=== PATIENT | female | born 1975 | race Caucasian/White ===

== ENCOUNTER 2017-02-15 11:12 | Inpatient (IN) ==
[2017-02-15] MEDS ORDERED: CLINDAMYCIN 600 MG/4 ML VIAL IM STA (12:24)
[2017-02-15] MEDS ORDERED: CLINDAMYCIN 600 MG/4 ML VIAL ONE (12:25)
--- NOTE | 2017-02-15 12:41 | Emergency Department Note ---
Arrival - Arrival Chief Complaint: Back Stated Complaint: left back and hip pain,swollen arms ED Nursing Triage Note: Pt c/o mid back pain, right hip pain, and red/painful areas to her skin just above her AC on her natasha upper arm. Pt has been to [facility] ER x 3 for the pain but is not better. Mode of Arrival: Wheelchair Limitations: No Limitations Source: Patient, Family Time Seen by Provider: 02/15/17 12:00 - History of Present Illness HPI Narrative: This is a 41-year-old white female who is complaining of mid back and right hip pain for approximately 5 weeks. She also is complaining of painful red areas to the distal upper arms for approximately 1 week. This patient reports a history of drug abuse and states that she has been seen at [facility] for this problem. She also states that she has been to [facility] emergency department for 3 visits but the pain is not better. She states that she had a CT of the spine there last . She denies any fevers, hematuria , or dysuria. Onset (ago): week(s) (5) Consistency: intermittent Severity: moderate Quality: stabbing Allergies/Adverse Reactions: Allergies Allergy/AdvReac Type Severity Reaction Status Date / Time morphine Allergy Intermediate RASH Verified 06/05/16 22:55 ketorolac [From Toradol] Allergy RASH Verified 06/05/16 22:55 levofloxacin [From Levaquin] Allergy HIVES Verified 06/05/16 22:55 meperidine [From Demerol] AdvReac Intermediate Nausea Verified 06/05/16 22:55 Penicillins AdvReac Intermediate Fever Verified 06/05/16 22:55 Home Medications: Home Medications Medication Instructions Recorded Confirmed Type Fluoxetine [PROzac] 10 mg PO DAILY 02/08/15 05/11/16 History Gabapentin [Gabapentin] 600 mg PO BID 02/08/15 05/11/16 History Hydrocodone/Acetaminophen 1 each PO BID 02/08/15 05/11/16 History [Hydrocodon-Acetaminophn 10-325] Levothyroxine Tab [Synthroid Tab] 88 mcg PO DAILY 02/08/15 05/11/16 History Omeprazole [Omeprazole] 20 mg PO DAILY 02/08/15 05/11/16 History Promethazine Tab [Phenergan Tab] 25 mg PO Q6H 02/08/15 05/11/16 History Warfarin Sodium 5 mg PO DAILY 02/08/15 05/11/16 History clonazePAM [Clonazepam] 1 mg PO PRN PRN 02/08/15 05/11/16 History Furosemide Tab [Lasix Tab] 10 mg PO DAILY PRN 01/22/16 05/11/16 History Potassium Chloride 20 meq PO DAILY 01/22/16 05/11/16 History Insulin Lispro [HumaLOG] 1 unit SUBCUT BID 05/11/16 05/11/16 History metFORMIN [Glucophage] 500 mg PO BID W/MEALS 05/11/16 05/11/16 History traMADol TAB [Ultram] 50 mg PO Q6H #16 tablet 06/06/16 Rx Review of System - Review of System 12 point system: reviewed and no additional remarkable complaints except as stated - Review of System Constitutional: Present: as per HPI. Absent: fever Musculoskeletal: Present: as per HPI, lower back pain (Left flank pain) Skin: Present: as per HPI, other Medical,Surgical,& Family Hx - Medical History Psychological: History of: Anxiety Disorders, Depression Endocrine: History of: Diabetes Mellitus (NIDDM) Rheumatology: History of;: Fibromyalgia Respiratory: History of: Pulmonary Embolism Gastrointestinal: History of: Gastrointestinal Bleed, GI Problems ("gallbladder problems") Musculoskeletal: History of: Degenerative Disk Disease, Musculoskeletal Problems (fibromyalgia) Other: History of: Miscellaneous Medical Problems (fibromyalgia) - Surgical History Abdominal Surgeries: Surgical HX of: Appendectomy, Cholecystectomy Reproductive Surgeries: Surgical HX of;: Section, Gynecologic Surgery ( benign ovarian tumor resection) - Social History Smoking Status: Current every day smoker Exam Physical Examination: - General General appearance: [alert, in mild to moderate distress] - Head Head exam: [Present: atraumatic, normocephalic, normal inspection] - Eye Eye exam: [Present: normal appearance, PERRL, EOMI] - ENT ENT exam: [Present: normal exam, normal oropharynx, mucous membranes moist, TM' s normal bilaterally, normal external ear exam] - Neck Neck exam: [Present: normal inspection, full ROM, trachea midline] - Chest Chest inspection: [Present: normal inspection, symmetric chest wall rise] - Respiratory Respiratory exam: [Present: normal lung sounds bilaterally] - Cardiovascular Cardiovascular exam: [Present: regular rate, normal rhythm, normal heart sounds] - Abdominal Exam Abdominal exam: [Present: soft, normal bowel sounds] - Extremities Exam Extremities exam: [Present: normal inspection, full ROM] - Back Exam Back exam: [Present: normal inspection, full ROM. Exception: There is pain to even light touch of the lower back the left flank.] - Neurological Exam Neurological exam: [Present: alert, oriented X3] - Psychiatric Psychiatric exam: [Present: normal affect, normal mood] - Skin Skin exam: [Present: warm, dry, intact, normal color. Exception: There is a 5 x 5 cm round area of cellulitis noted to the distal aspect of both upper arms just above the AC fossa] Vital Signs: Vital Signs Temperature 96.1 F L 02/15/17 11:36 Pulse Rate 114 H 02/15/17 13:25 Respiratory Rate 18 02/15/17 13:25 Blood Pressure 92/67 02/15/17 13:25 O2 Sat by Pulse Oximetry 96 02/15/17 11:26 Results - Labs CBC & BMP: 02/15/17 12:10 02/15/17 12:10 Disposition Clinical Impression: Hyperglycemia, Cellulitis of arm, left, Cellulitis of arm, right Case discussed with: patient Disposition: Still a Patient Condition: Stable Time of Disposition: 15:29
[2017-02-15 12:44] LABS: Basophils % 0.4 % (0.0-0.8); Eosinophils # 0.1 10*3/uL (0.0-0.87); Eosinophils % 0.7 % (0.00-10.9); Hematocrit 39.8 VOL% (35.7-47.0); Hemoglobin 13.8 GM/DL (12.0-16.0); Immature Granulocytes % 0.6 %; Immature Granulocytes Absolute 0.06 #; Lymphocytes # 1.3 10*3/uL (1.4-4.0); Lymphocytes % 13.2 % (21.3-54.2); Mean Corpuscular HGB Conc 34.7 GM/DL (32-36); Mean Corpuscular Hemoglobin 28 PG (27-34); Mean Corpuscular Volume 80.9 FL (87-102); Mean Platelet Volume 10.2 FL (9.6-12.0); Monocytes # 0.8 10*3/uL (0.11-0.8); Monocytes % 8.3 % (1.7-12.7); Neutrophils # 7.7 10*3/uL (1.4-7.4); Neutrophils % 76.8 % (38.7-73.9); Platelet Count 296 T/CUMM (130-400); Red Blood Count 4.92 MC/CUMM (3.8-5.5); Red Cell Distribution Width 13.2 % (9.3-17.3); White Blood Count 10.1 T/CUMM (4-12)
[2017-02-15 12:48] LABS: Apearance,Urine CLEAR (Clear); Bacteria,Urine Occasional /HPF (Few); Bilirubin,Urine Negative (Negative); Blood, Urine Small mg/dL (Negative); Glucose,Urine (UA) >=500 mg/dL (Negative); Ketones,Urine 20 mg/dL (Negative); Nitrite,Urine Negative (Negative); Protein,Urine Negative; RBC,Urine <1 /HPF (0-4); Squamous Epithelial Cell,Urine Occasional /HPF (0-10); Urine Color Straw (Yellow); Urine Specific Gravity 1.031 (1.001-1.035); Urine Urobilinogen < 2.0 EU/DL (0.2-1.0); WBC,Urine 5 /HPF (0-6)
[2017-02-15 13:19] LABS: Calcium 8.6 MG/DL (8.5-10.1)
[2017-02-15 13:20] LABS: Osmolality,Calculated 286.7 MOS/KG (273-304); Potassium 3.6 MMOL/L (3.5-5.1)
[2017-02-15] MEDS ORDERED: SODIUM CHLORIDE 0.9% 1,000 ML IV STA ×2 (13:34→13:35)
[2017-02-15 14:00] LABS: Band Neutrophils 3 % (0-10); Eosinophils 1 % (0-10); Hypochromasia 1+; Lymphocytes 14 % (20-55); Platelet Estimate Adequate; Segmented Neutrophils 77 % (50-85); Total Cells Counted 100
--- NOTE | 2017-02-15 14:05 | CT Report ---
CT abdomen pelvis wo con Indication: Left flank pain Comparison: CT abdomen pelvis dated November 29, 2015 Technique: Multiple axial tomographic images of the abdomen and pelvis were obtained without the use of intravenous contrast. Findings: Mild dependent change of the lungs present. Diffuse hypoattenuation of the liver consistent with steatosis. 2.1 cm hypoattenuating lesion within the posterior medial right lobe of the liver. This was present and unchanged when compared back to CT PE study dated February 08, 2015. Stability suggests benignity. The liver appears somewhat prominent. Status post cholecystectomy. Spleen is upper limits of normal in size. The bilateral adrenal glands are grossly unremarkable. The bilateral kidneys are grossly unremarkable. The urinary bladder is incompletely distended. Uterus grossly unremarkable. No worrisome adnexal mass. There is no evidence of gastrointestinal obstruction or acute appendicitis. Visualized vasculature grossly unremarkable. Fat-containing umbilical hernia. Supraumbilical ventral abdominal hernia again noted which is at midline and fat-containing. There is patchy opacification within the bilateral anterior abdominal wall subcutaneous soft tissues, greatest within the left lower quadrant. This is most likely injection related. Osseous structures appear grossly unchanged. IMPRESSION: No convincing CT evidence of acute intra-abdominal abnormality or urinary calculus. Chronic findings as detailed above. The CT exam was performed using one or more of the following dose reduction techniques: Automated exposure control, adjustment of the mA and/or kV according to patient size, or use of iterative reconstruction technique. PROCEDURE INTERPRETED AT [facility] DEPARTMENT OF RADIOLOGY Final Report Signed by: Dr Gumaro Arrington
[2017-02-15] MEDS ORDERED: INSULIN REGULAR 100 UNIT/ML SUBCUT STA (15:12)
[2017-02-15] MEDS ORDERED: GLUCAGON 1 MG VIAL IM PRN ×2 (15:15→16:17)
[2017-02-15] MEDS ORDERED: ACETAMINOPHEN 325 MG TABLET PO PRN (15:15)
[2017-02-15] MEDS ORDERED: DEXTROSE 50% 25 GM/50 ML VIAL IV PRN ×2 (15:15→16:17)
[2017-02-15] MEDS ORDERED: INSULIN REGULAR 100 UNIT/ML ONE (15:23)
--- NOTE | 2017-02-15 15:43 | Hospitalist History & Physical ---
<Bhavna Johnsonda - Last Filed: 02/15/17 16:23> Assessment and Plan (1) Cellulitis of arm, left Status: Acute Assessment and plan: The areas are noted bilaterally affecting the antecubital aspect of her arm. This finding is quite troubling. The patient reported a history of pulmonary embolism in 2004 and 2007 and multiple deep vein thrombosis. She was placed on Coumadin; however she reports that she has not taken it in months. We will check venous dopplers upper and lower for good measures. Current Visit: Yes (2) Cellulitis of arm, right Status: Acute Assessment and plan: The areas are noted bilaterally affecting the antecubital aspect of her arms. This finding is quite troubling. The patient reported a history of pulmonary embolism in 2004 and 2007 and multiple deep vein thrombosis. She was placed on Coumadin; however she reports that she has not taken it in months. We will check venous dopplers upper and lower for good measures. Current Visit: Yes (3) Hyperglycemia Status: Acute Assessment and plan: Grossly hyperglycemic at the time of presentation; glucose noted 593. Will obtain HGA1C and start accuchecks with SS coverage. Current Visit: Yes History of Present Illness Chief complaint: bilateral arm pain and lower back pain History of present illness: This is a very unfortunate 41 year old female that presented to the [facility] at [facility] for the evaluation of swelling of bilateral upper arms and lower back. The patient has a very complex medical history significant for morbid obesity, Home Medications Medication Instructions Recorded Confirmed Type Gabapentin [Gabapentin] 600 mg PO BID 02/08/15 02/15/17 History Levothyroxine Tab [Synthroid Tab] 88 mcg PO DAILY 02/08/15 02/15/17 History Furosemide Tab [Lasix Tab] 10 mg PO DAILY PRN 01/22/16 02/15/17 History metFORMIN [Glucophage] 500 mg PO BID W/MEALS 05/11/16 02/15/17 History Insulin Detemir [Levemir FlexPen] 35 unit SUBCUT DAILY 02/15/17 02/15/17 History Warfarin [Coumadin] 2 mg PO DAILY@1800 02/15/17 02/15/17 History Allergies Allergy/AdvReac Type Severity Reaction Status Date / Time morphine Allergy Intermediate RASH Verified 06/05/16 22:55 ketorolac [From Toradol] Allergy RASH Verified 06/05/16 22:55 levofloxacin [From Levaquin] Allergy HIVES Verified 06/05/16 22:55 meperidine [From Demerol] AdvReac Intermediate Nausea Verified 06/05/16 22:55 Penicillins AdvReac Intermediate Fever Verified 06/05/16 22:55 Medical,Surgical,& Family Hx - Medical History Psychological: History of: Anxiety Disorders, Depression Endocrine: History of: Diabetes Mellitus (NIDDM) Rheumatology: History of;: Fibromyalgia Respiratory: History of: Pulmonary Embolism Gastrointestinal: History of: Gastrointestinal Bleed, GI Problems ("gallbladder problems") Musculoskeletal: History of: Degenerative Disk Disease, Musculoskeletal Problems (fibromyalgia) Other: History of: Miscellaneous Medical Problems (fibromyalgia) - Surgical History Abdominal Surgeries: Surgical HX of: Appendectomy, Cholecystectomy Reproductive Surgeries: Surgical HX of;: Section, Gynecologic Surgery ( benign ovarian tumor resection) - Social History Smoking Status: Current every day smoker Exam - Constitutional Vitals: Period Temp Pulse Resp BP Sys/Bettencourt Pulse Ox Last 24 Hr 96.1 F-96.1 F 105-114 18-22 92-121/67-102 96 General appearance: mild distress, morbidly obese - Head Head exam: Present: normal inspection, normocephalic, atraumatic - Eye Eye exam: Present: EOMI, conjunctival injection. Absent: nystagmus Pupils: Present: RONNA, normal accommodation - ENT ENT exam: Present: normal exam, normal external ear exam, normal oropharynx, other (edentulous) - Neck Neck exam: Present: normal inspection. Absent: lymphadenopathy, meningismus, thyromegaly - Respiratory Respiratory exam: Present: clear to auscultation bilaterally. Absent: rales, rhonchi, stridor, wheezes - Cardiovascular Cardiovascular exam: Present: regular rate and rhythm. Absent: carotid bruit, diastolic murmur, gallop, JVD, rubs, systolic murmur - GI/Abdominal GI/Abdominal exam: Present: normal bowel sounds, soft - Extremities Exam Extremities exam: Present: other (edema to bilateral upper arms) - Back Exam Back exam: Present: normal inspection, muscle spasm - Neurological Exam Neurological exam: Present: alert, oriented X3, CN II-XII intact - Psychiatric Psychiatric exam: Present: anxious - Skin Skin exam: Present: normal color, warm, dry Results - Labs CBC & BMP: 05/30/17 12:10 02/15/17 12:10 Lab Results: I have reviewed the past 24 hour labs Quality Measures - VTE Contraindication to Pharmacological VTE Prophylaxis: Already on Theraputic Agent , No Prophylaxis Needed <RalfEberkatelyn - Last Filed: 02/15/17 17:09> History of Present Illness History of present illness: Patient seen and examined independently of NICOLAS Johnson, agree with history, assessment and plan as documented. 41 y/o WF with HTN, DM and hx of chronic pain presents with low back pain and bilateral arm redness and pain. She reports that her back pain started approximately 5 weeks ago. She does report a history of chronic back pain, with some type of cyst removed years ago. Her arm pain started Tuesday, associated with redness and warmth. She denies fever and chills. She denies a history of IV drug abuse, but does admit a history of prescription drug abuse. 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 Bilateral forearm with raised areas, warm and red. Strange for this to be bilateral. She is afebrile with no leukocytosis. But the appearance is suspicious for infection. Will obtain bilateral dopplers. Will treat as an abscess for now with vancomycin. She might require a surgery consult. She was in the ED , but denies an IV attempts in these areas. Low back pain appears to be in the middle. Physical exam is difficult given patient's body habitus and pain level. Will obtain xrays. If negative might consider further imaging. Will obtain blood cultures, esr and crp. Uncontrolled diabetes mellitus, received regular insulin in the ED, will restart home insulin. Exam - Constitutional Vitals: Period Temp Pulse Resp BP Sys/Bettencourt Pulse Ox Last 24 Hr 96.1 F-99.4 F 105-114 18-22 92-121/60-102 96-99 Results - Labs CBC & BMP: 02/15/17 12:10 02/15/17 12:10
[2017-02-15 15:59] LABS: Barbiturates Screen,Urine Negative (Negative); Benzodiazepines Screen,Urine Negative (Negative); Cannabinoid Screen,Urine Negative (Negative); Opiate Screen,Urine Positive (Negative); Phencyclidine Screen,Urine Negative (Negative)
--- NOTE | 2017-02-15 16:33 | Ultrasound Report ---
US venous doppler UE BI Indication: Cellulitis. Bilateral upper extremity DVT ultrasound: Grayscale, graded compression, color Doppler and pulse Doppler interrogation of both upper extremities performed. Normal features are present within the internal jugular, subclavian, axillary, brachial and basilic veins of both upper extremities. In both antecubital fossa's, there are fluid collections present that are somewhat insinuating between tissue planes, likely hematomas. In the right antecubital fossa, the collection measures roughly 47 x 21 x 44 mm, and in the left AC fossa, roughly 41 x 24 mm. Color Doppler flow shows no active extravasation into either of these collections and there is no hyperemic change to the periphery of either to suggest inflammatory process. Impression: Bilateral antecubital fossa collections, presumably hematomas. Less likely but on the differential include abscesses. Has the patient had recent blood draws requiring bilateral AC fossa sticks? PROCEDURE INTERPRETED AT [facility] DEPARTMENT OF RADIOLOGY Final Report Signed by: Renato Eubanks M.D.
[2017-02-15] MEDS ORDERED: VANCOMYCIN INJ 1,000 MG in SODIUM CHLORIDE 0.9% 250 ML IV SCH (17:00)
[2017-02-15] MEDS: INSULIN REGULAR 100 UNIT/ML SUBCUT SCH ×2 (17:00→20:44)
--- NOTE | 2017-02-15 17:37 | XRay Report ---
XR lumbar spine AP/LAT Indication: Low back pain. Lumbar spine 3 views: Mild L1-2 and L2-3 disc space narrowing with endplate osteophytes noted. Mild L5-S1 disc space narrowing as well. The disc heights are maintained. No compression fractures. No spondylolisthesis. Impression: Mild degenerative disc disease L1-2, L2-3 and L5-S1. PROCEDURE INTERPRETED AT [facility] DEPARTMENT OF RADIOLOGY Final Report Signed by: Renato Eubanks M.D.
--- NOTE | 2017-02-15 17:38 | XRay Report ---
XR thoracic spine 2V ap/lat Indication: Back pain. Thoracic spine 2 views: There is a mild less than 8 degrees scoliotic curvature of the upper thoracic spine, apex at T5. No compression fractures. No spondylolisthesis. Endplate spondylitic changes of the mid and lower thoracic spine are present with small endplate osteophytes. Disc heights are maintained. Obesity noted. Impression: Mild endplate spondylitic changes mid and lower thoracic spine. PROCEDURE INTERPRETED AT [facility] DEPARTMENT OF RADIOLOGY Final Report Signed by: Renato Eubanks M.D.
[2017-02-15] MEDS: SODIUM CHLORIDE 0.9% 1,000 ML IV SCH (18:08)
[2017-02-15 18:23] LABS: INR 1.2; PT Patient Result 12.4 SECS
[2017-02-15 19:30] LABS: Hepatitis A Ab IgM Quant < 0.02 Index; Hepatitis A Ab IgM Result Negative (Negative); Hepatitis B Core IgM Quant 0.19 Index; Hepatitis B Core IgM Result Negative (Negative); Hepatitis B Surface Ag Quant 0.28 Index; Hepatitis B Surface Ag Result Negative (Negative); Hepatitis C Virus Ab Quant 0.28 Index; Hepatitis C Virus Ab Result Negative (Negative)
[2017-02-15] MEDS: VANCOMYCIN INJ 2,000 MG in SODIUM CHLORIDE 0.9% 500 ML IV SCH (19:52)
[2017-02-15] MEDS: ZALEPLON 5 MG CAPSULE PO PRN (20:27)
[2017-02-15] MEDS ORDERED: CLINDAMYCIN INJ 900 MG in PREMIX 1 EACH IV SCH (21:00)
[2017-02-16] MEDS: ONDANSETRON 4 MG/2 ML VIAL IV PRN ×3 (01:41→20:28)
[2017-02-16] MEDS: SODIUM CHLORIDE 0.9% 1,000 ML IV SCH ×3 (02:08→19:38)
[2017-02-16 04:25] LABS: Basophils % 0.4 % (0.0-0.8); Eosinophils # 0.1 10*3/uL (0.0-0.87); Eosinophils % 0.5 % (0.00-10.9); Hemoglobin 12.6 GM/DL (12.0-16.0); Immature Granulocytes % 0.9 %; Lymphocytes # 1.8 10*3/uL (1.4-4.0); Lymphocytes % 16.1 % (21.3-54.2); Mean Corpuscular HGB Conc 34.1 GM/DL (32-36); Mean Corpuscular Hemoglobin 28 PG (27-34); Mean Corpuscular Volume 81.7 FL (87-102); Monocytes % 8.6 % (1.7-12.7); Neutrophils # 8.2 10*3/uL (1.4-7.4); Neutrophils % 73.5 % (38.7-73.9); Platelet Count 311 T/CUMM (130-400); Red Blood Count 4.53 MC/CUMM (3.8-5.5); White Blood Count 11.1 T/CUMM (4-12)
[2017-02-16 04:55] LABS: Band Neutrophils 2 % (0-10); Burr Cells Slight; Eosinophils 1 % (0-10); Lymphocytes 17 % (20-55); Platelet Estimate Adequate; Segmented Neutrophils 72 % (50-85); Total Cells Counted 100
[2017-02-16 04:59] LABS: Albumin 2.2 G/DL (3.4-5.0); Bilirubin,Total 0.7 MG/DL (0.2-1.0); Calcium 8.1 MG/DL (8.5-10.1); Magnesium 1.6 MG/DL (1.8-2.4); Osmolality,Calculated 277.1 MOS/KG (273-304); Phosphorous 2.9 MG/DL (2.5-4.9); Potassium 3.4 MMOL/L (3.5-5.1); Total Protein 5.9 G/DL (6.4-8.3)
[2017-02-16 05:36] LABS: Cholesterol 110 MG/DL (50-200); HDL Cholesterol < 10 MG/DL (40-60); Triglycerides 265 MG/DL (2-150)
[2017-02-16] MEDS: INSULIN GLARGINE 100 UNIT/ML SUBCUT SCH (08:04)
[2017-02-16] MEDS: INSULIN REGULAR 100 UNIT/ML SUBCUT SCH ×4 (08:05→20:26)
[2017-02-16] MEDS: PANTOPRAZOLE 40 MG TABLET PO SCH (08:05)
[2017-02-16] MEDS: VANCOMYCIN INJ 2,000 MG in SODIUM CHLORIDE 0.9% 500 ML IV SCH ×2 (08:06→19:38)
--- NOTE | 2017-02-16 10:42 | Hospitalist Progress Note ---
Assessment and Plan (1) Abscess of forearm, left Status: Acute Assessment and plan: Impression: 1. Left forearm abscess with bacteremia 2. Right forearm abscess 3. Morbid obesity 4. Chronic pain Plan: Surgery evaluation. I have revised her opioids. IV antibiotics have been instituted. This note was completed using [employer] voice recognition software. There may be social work nurse errors as a result. Current Visit: Yes Hospitalist: Subjective Interval history: Follow-up arm pain. The patient has had blood cultures growing gram-positive cocci. She has bilateral antecubital fossa abscesses. She denies any recent injections in the area. She is most interested in pain management. She says that her arms are sore, and that she has chronic pain in her back and legs. She had been receiving [place] [facility] in the past, but it is not clear where she has been getting this , since she has been fired from pain management. Exam - Constitutional Vitals: Period Temp Pulse Resp BP Sys/Bettencourt Pulse Ox Last 24 Hr 96.1 F-99.4 F 95-114 18-22 92-127/60-102 92-99 Heart is regular with no murmur or gallop. Lungs are clear with no rales or wheezes. Abdomen is tremendous; palpation is impossible. The left antecubital fossa lesion is draining grossly purulent material. She is awake and alert Results - Labs CBC & BMP: 02/16/17 03:39 02/16/17 03:39 Quality Measures - VTE Contraindication to Pharmacological VTE Prophylaxis: Already on Theraputic Agent , No Prophylaxis Needed
[2017-02-16] MEDS: oxyCODONE/ACETAMINOPHEN 5-325 MG TABLET PO PRN (11:55)
--- NOTE | 2017-02-16 11:57 | General Surgery Consult Note ---
Assessment and Plan (1) Abscess of forearm, left Status: Acute Assessment and plan: Patient with abscess of the left upper extremity. As also concerning is it is associated with positive blood cultures and possible IV 6 for septicemia. Cultures are growing methicillin sensitive staph aureus and patient is on appropriate antibiotics. Continue with IV antibiotics. Unfortunately patient has just eaten. Recommend elevation and warm compresses at this time. Dr. Torres to follow for assessment and recommendation of exact timing of I&D. Current Visit: Yes (2) Abscess of right arm Status: Acute Assessment and plan: Same as above Current Visit: Yes History of Present Illness Chief complaint: Bilateral Arm Pain History of present illness: Ms. Hurley is a 41 year old female with past medical history of insulin- dependent diabetes mellitus, chronic pain, hypothyroidism, anxiety depression as well as a DVT and PE with medication noncompliance currently admitted with complaints of hip pain, back pain and bilateral upper extremity pain. Patient reports she was seen in the emergency department [facility] last Tuesday at which time an IV was placed into her left upper extremity. Following that discharge, she noted having increased pain in this area. This is progressively worsened with associated edema and erythema. She denies fever, chills, myalgias , or riders; arthralgias as above. There is a documented history that she reported history of drug abuse in the medical record, but at the bedside, she denies any recent IV drug abuse. Patient initially started on clindamycin and now on vancomycin. She has had upper trapezius and bilateral upper extremities which demonstrated fluid collections the antecubital fossae. No history of MRSA infection. Home Medications Medication Instructions Recorded Confirmed Type Gabapentin [Gabapentin] 600 mg PO BID 02/08/15 02/15/17 History Levothyroxine Tab [Synthroid Tab] 88 mcg PO DAILY 02/08/15 02/15/17 History Furosemide Tab [Lasix Tab] 10 mg PO DAILY PRN 01/22/16 02/15/17 History metFORMIN [Glucophage] 500 mg PO BID W/MEALS 05/11/16 02/15/17 History Insulin Detemir [Levemir FlexPen] 35 unit SUBCUT DAILY 02/15/17 02/15/17 History Warfarin [Coumadin] 2 mg PO DAILY@1800 02/15/17 02/15/17 History Allergies Allergy/AdvReac Type Severity Reaction Status Date / Time morphine Allergy Intermediate RASH Verified 06/05/16 22:55 ketorolac [From Toradol] Allergy RASH Verified 06/05/16 22:55 levofloxacin [From Levaquin] Allergy HIVES Verified 06/05/16 22:55 meperidine [From Demerol] AdvReac Intermediate Nausea Verified 06/05/16 22:55 Penicillins AdvReac Intermediate Fever Verified 06/05/16 22:55 Medical,Surgical,& Family Hx - Medical History Psychological: History of: Anxiety Disorders, Depression Endocrine: History of: Diabetes Mellitus (IDDM), Diabetes Mellitus (NIDDM) Rheumatology: History of;: Fibromyalgia Respiratory: History of: Pulmonary Embolism Gastrointestinal: History of: Gastrointestinal Bleed, GI Problems ("gallbladder problems") Musculoskeletal: History of: Degenerative Disk Disease, Musculoskeletal Problems (fibromyalgia) Reproductive: History of: Reproductive Problems (tubectomy) Other: History of: Miscellaneous Medical Problems (fibromyalgia) - Surgical History Abdominal Surgeries: Surgical HX of: Appendectomy, Cholecystectomy Reproductive Surgeries: Surgical HX of;: Section, Gynecologic Surgery ( benign ovarian tumor resection) - Social History Smoking Status: Current every day smoker Frequency of Alcohol Use: None Type of Drug Use: None (History of drug abuse) Lives With:: Parent - Constitutional Constitutional: Present: as per HPI - Cardiovascular Cardiovascular: Absent: chest pain at rest, orthopnea, palpitations - Respiratory Respiratory: Absent: cough, wheezing - Gastrointestinal Gastrointestinal: Absent: abdominal pain, diarrhea, nausea, vomiting - Genitourinary Genitourinary: Absent: dysuria, flank pain - Musculoskeletal Musculoskeletal: Present: as per HPI Hematologic/Lymphatic: Absent: easy bleeding, easy bruising Exam - Constitutional Vitals: Period Temp Pulse Resp BP Sys/Bettencourt Pulse Ox Last 24 Hr 97.8 F-99.4 F 95-114 18-20 92-127/60-75 92-99 General appearance: morbidly obese - Eye Eye exam: Absent: conjunctival injection, scleral icterus - Neck Neck exam: Present: trachea midline - Respiratory Respiratory exam: Present: clear to auscultation bilaterally - Cardiovascular Cardiovascular exam: Present: RRR - GI/Abdominal GI/Abdominal exam: Present: normal bowel sounds, soft. Absent: tenderness - Extremities Exam Extremities exam: Absent: calf tenderness (Left upper extremity AC with edematous erythematous area with palpable induration approximately 5 cm in diameter with purulent drainage; this is tender to palpation. Right upper extremity: With a similar findings measuring approximately 6 cm in diameter without opened, draining wound. Distally, radial and ulnar pulses are palpable. Sensation is intact in the digits with full motor function bilaterally in the hands.), edema - Neurological Exam Neurological exam: Present: alert, oriented X3 Speech: Present: normal - Skin Skin exam: Present: normal color, warm Quality Measures - VTE Contraindication to Pharmacological VTE Prophylaxis: Already on Theraputic Agent , No Prophylaxis Needed Results - Labs CBC & BMP: 02/16/17 03:39 02/16/17 03:39 Labs: Blood cultures: 2/2 MSSA CRP 29.4 sed rate 66 INR 1.2 Urinalysis unremarkable No leukocytosis - Diagnostic Findings Procedure: Ultrasound: report reviewed by me
--- NOTE | 2017-02-16 15:00 | Ultrasound Report ---
History: Palpable thrill associated with region of clinical soft tissue abscess in both upper extremities abscess Date: 02/16/2017 Study: Bilateral upper extremity arterial duplex ultrasound Comparison exam: Venous ultrasound 02/15/2017 Real-time ultrasound images are captured and archived, to include grayscale, color Doppler, and pulse wave Doppler images. The brachial and proximal radial and ulnar arteries in the regions of interest are patent bilaterally. There is no evidence of occlusion or pseudoaneurysm or localized hematoma directly adjacent to the arteries scanned. Impression: No arterial abnormality in the region of interest PROCEDURE INTERPRETED AT [facility] DEPARTMENT OF RADIOLOGY Final Report Signed by: Dr. Keya Dowd
[2017-02-16] MEDS: HYDROmorphone 2 MG/1 ML VIAL IV PRN ×2 (15:24→20:27)
[2017-02-17] MEDS: HYDROmorphone 2 MG/1 ML VIAL IV PRN ×8 (00:44→20:35)
[2017-02-17] MEDS: ONDANSETRON 4 MG/2 ML VIAL IV PRN ×3 (00:45→16:02)
[2017-02-17] MEDS: SODIUM CHLORIDE 0.9% 1,000 ML IV SCH ×3 (04:53→23:55)
--- NOTE | 2017-02-17 07:08 | EKG Report ---
Stationary ECG Study [facility] Test Date: 02/17/2017 6:07:08 AM Pat Name: ZONIA BENITEZ Department: Room: 244 Gender: F Com Writer: REUBEN : 1975 Requested by: Geoff Lion Order Number: [id number] Reading MD: RANDOLPH KISER Intervals [place] Rate: 88 P: 68 IA: 214 QRS: 81 QRSD: 105 T: 18 QT: 381 QTc: 426 Interpretive Statements SINUS RHYTHM WITH PROLONGED IA INTERVAL NONSPECIFIC T-WAVE ABNORMALITY Electronically Signed On 02-18-17 08:48:30 CDT by RANDOLPH KISER [email or web address]
[2017-02-17] MEDS: INSULIN REGULAR 100 UNIT/ML SUBCUT SCH ×4 (08:09→20:46)
[2017-02-17] MEDS: PANTOPRAZOLE 40 MG TABLET PO SCH (08:10)
[2017-02-17] MEDS: INSULIN GLARGINE 100 UNIT/ML SUBCUT SCH (08:10)
[2017-02-17] MEDS: VANCOMYCIN INJ 2,000 MG in SODIUM CHLORIDE 0.9% 500 ML IV SCH ×2 (09:21→17:43)
--- NOTE | 2017-02-17 09:57 | Hospitalist Progress Note ---
Assessment and Plan (1) Abscess of forearm, left Status: Acute Assessment and plan: Impression: 1. Left forearm abscess with bacteremia 2. Right forearm abscess 3. Morbid obesity 4. Chronic pain Plan: Surgery today. Continue IV antibiotics. This note was completed using [employer] voice recognition software. There may be manager environmental health errors as a result. Current Visit: Yes Hospitalist: Subjective Interval history: Follow-up bilateral antecubital fossa abscess. The patient feels a little better today. Pain appears to be better controlled, as evidenced by lack of hollering in the room. Parents are in the room with the patient. The patient is scheduled for abscess drainage today. She reports a prior subcutaneous abscess on the anterior abdominal wall that healed without incident. Exam - Constitutional Vitals: Period Temp Pulse Resp BP Sys/Bettencourt Pulse Ox Last 24 Hr 97.6 F-99.1 F 81-106 18-21 104-120/55-73 90-97 Vital signs are noted above. Right antecubital fossa is erythematous and indurated. Left continues to drain , and bandages intact. She is awake and alert. Her gaze is disconjugate. This is a chronic finding. Results - Labs CBC & BMP: 02/16/17 03:39 02/16/17 03:39 Lab Results: I have reviewed the past 24 hour labs (Blood cultures are growing gram-positive cocci) Quality Measures - VTE Contraindication to Pharmacological VTE Prophylaxis: Already on Theraputic Agent , No Prophylaxis Needed
--- NOTE | 2017-02-17 15:35 | Operative Note ---
Date of procedure: 02/17/17 Pre-op diagnosis: Bilateral antecubital fossa abscesses Post-op diagnosis: same Procedure: Procedure performed: Incision and drainage of bilateral antecubital fossa abscesses Procedure in detail: Patient was taken to the operating suite and laid supine. After general anesthesia induced bilateral upper extremities were prepped and draped in usual sterile fashion. After procedural pause incision was made over the fluctuant area in the right arm. There were 2 areas with fluctuance one just above the elbow crease and one below. Incision was made in both of these with return of purulence. Cultures obtained and sent. I freed the loculations and the cavity. Thoroughly irrigated both incisions. All the purulence was drained. Pressure was applied. Next I opened up the draining area just above the left antecubital fossa and the cavity was thoroughly irrigated and suctioned. All the loculations were freed. There is good hemostasis. 2 inch Kerlix was placed in the cavity. On the right a 2 inch Kerlix was placed in both of these cavities. There was no necrotic tissue identified. Sterile dressings applied and the patient was taken recovery room in stable condition. All lap and needle counts correct at the end of the case. Anesthesia: GETA Surgeon / Physician: Shmuel Torres Estimated blood loss: other (Approximately 25 cc) Specimens: other (Cultures obtained) Condition: stable Disposition: PACU Results - Labs CBC & BMP: 02/16/17 03:39 02/16/17 03:39 Discharge Plan - Discharge Medications No Action Gabapentin [Gabapentin] 600 mg PO BID Levothyroxine Tab [Synthroid Tab] 88 mcg PO DAILY Furosemide Tab [Lasix Tab] 10 mg PO DAILY PRN PRN Reason: fluid retention metFORMIN [Glucophage] 500 mg PO BID W/MEALS Warfarin [Coumadin] 2 mg PO DAILY@1800 Insulin Detemir [Levemir FlexPen] 35 unit SUBCUT DAILY - Follow Up or Referral - Forms/Instructions
--- NOTE | 2017-02-17 15:44 | Anesthesia Post-Op ---
Anesthesia Post OP - Post Ansesthetic Evaluation Patient seen in post op: Yes Resp: within normal limits CV: within normal limits Mental: within normal limits Temp: within normal limits Gvac-Dw-[id number]: within normal limits Nausea and Vomiting: within normal limits Pain: within normal limits
[2017-02-17] MEDS ORDERED: MIDAZOLAM 2 MG/2 ML VIAL ONE (15:46)
[2017-02-17] MEDS ORDERED: fentaNYL 100 MCG/2 ML VIAL ONE (15:46)
[2017-02-17] MEDS ORDERED: HYDROmorphone 2 MG/1 ML VIAL ONE (15:49)
[2017-02-17] MEDS ORDERED: ONDANSETRON 4 MG/2 ML VIAL ONE (15:49)
[2017-02-17] MEDS ORDERED: LACTATED RINGERS 1,000 ML IV SCH (16:30)
[2017-02-17] MEDS: oxyCODONE/ACETAMINOPHEN 5-325 MG TABLET PO PRN (17:37)
[2017-02-17] MEDS: ZALEPLON 5 MG CAPSULE PO PRN (20:29)
[2017-02-18] MEDS: HYDROmorphone 2 MG/1 ML VIAL IV PRN ×6 (00:26→21:17)
[2017-02-18] MEDS: ONDANSETRON 4 MG/2 ML VIAL IV PRN ×3 (00:27→14:23)
[2017-02-18] MEDS: VANCOMYCIN INJ 2,000 MG in SODIUM CHLORIDE 0.9% 500 ML IV SCH ×3 (00:30→21:17)
[2017-02-18] MEDS: INSULIN REGULAR 100 UNIT/ML SUBCUT SCH ×4 (09:35→20:45)
[2017-02-18] MEDS: INSULIN GLARGINE 100 UNIT/ML SUBCUT SCH (09:36)
[2017-02-18] MEDS: PANTOPRAZOLE 40 MG TABLET PO SCH (09:38)
--- NOTE | 2017-02-18 12:22 | Event Note ---
Status post I&D of bilateral antecubital fossa abscesses. Wounds are clean. Erythema improved. Continue antibiotics. Continue daily packing changes.
[2017-02-18] MEDS: SODIUM CHLORIDE 0.9% 1,000 ML IV SCH ×3 (13:18→21:19)
--- NOTE | 2017-02-18 13:40 | Hospitalist Progress Note ---
Assessment and Plan - Time spent with patient Time spent with patient: Greater than 30 minutes (1) Back pain Status: Acute Current Visit: Yes (2) Cellulitis of arm, left Status: Acute Current Visit: Yes (3) Cellulitis of arm, right Status: Acute Current Visit: Yes (4) Abscess of forearm, left Status: Acute Current Visit: Yes (5) Noncompliance with medications Status: Acute Current Visit: Yes (6) Abscess of right arm Status: Acute Assessment and plan: She is on vancomycin, continue to see him for now. We will send repeat blood cultures Continue pain medication. Continue current insulin regimen, monitor fingerstick glucose. Obtain MRI of lumbar and thoracic spine to further evaluate back pain. DVT prophylaxis-Lovenox Current Visit: Yes Hospitalist: Subjective Interval history: Follow-up for bilateral antecubital fossa abscess status post I&D. Pain, erythema, swelling seems to have improved compared to admission. At the time of my rounds, wound dressing was in place, clean and dry. She however continues to complain of severe back pain requiring IV narcotic pain medications. She claims back pain started about 5 weeks ago. X-rays show only degenerative joint disease. No urinary or fecal incontinence. She did grow strep in her last blood cultures. We have to rule out discitis versus other pathologies as reason severe back pain. Exam - Constitutional Vitals: Period Temp Pulse Resp BP Sys/Bettencourt Pulse Ox Last 24 Hr 97.1 F-98.4 F 84-909 16-22 98-195/44-98 92-99 General appearance: mild distress, over weight - Head Head exam: Present: normocephalic, atraumatic - Eye Pupils: Present: RONNA - ENT ENT exam: Present: normal external ear exam - Neck Neck exam: Present: normal inspection. Absent: meningismus - Respiratory Respiratory exam: Present: clear to auscultation bilaterally, chest wall tenderness - Cardiovascular Cardiovascular exam: Present: regular rate and rhythm - GI/Abdominal GI/Abdominal exam: Present: normal bowel sounds, soft. Absent: tenderness - Extremities Exam Extremities exam: Present: other (Wound dressing on bilateral forearms around the area close.) - Neurological Exam Neurological exam: Present: alert, oriented X3 Results - Labs CBC & BMP: 02/16/17 03:39 02/16/17 03:39 Lab Results: I have reviewed the past 24 hour labs Quality Measures - VTE Contraindication to Pharmacological VTE Prophylaxis: Already on Theraputic Agent , No Prophylaxis Needed
[2017-02-18] MEDS: ENOXAPARIN 40 MG/0.4 ML SYRINGE SUBCUT SCH (14:23)
[2017-02-19] MEDS: HYDROmorphone 2 MG/1 ML VIAL IV PRN ×7 (00:40→22:57)
[2017-02-19] MEDS: SODIUM CHLORIDE 0.9% 1,000 ML IV SCH ×3 (06:48→19:05)
[2017-02-19] MEDS: VANCOMYCIN INJ 2,000 MG in SODIUM CHLORIDE 0.9% 500 ML IV SCH ×3 (08:44→23:51)
[2017-02-19] MEDS: PANTOPRAZOLE 40 MG TABLET PO SCH (08:44)
--- NOTE | 2017-02-19 09:27 | Hospitalist Progress Note ---
Assessment and Plan - Time spent with patient Time spent with patient: Greater than 30 minutes (1) Back pain Status: Acute Current Visit: Yes (2) Cellulitis of arm, left Status: Acute Current Visit: Yes (3) Cellulitis of arm, right Status: Acute Current Visit: Yes (4) Abscess of forearm, left Status: Acute Current Visit: Yes (5) Noncompliance with medications Status: Acute Current Visit: Yes (6) Abscess of right arm Status: Acute Assessment and plan: Keep vancomycin for now. Follow repeat blood cultures, repeat ESR and CRP. Continue pain medication. Add lispro 10 units 3 times daily to her current insulin regimen, monitor fingerstick glucose. Reorder MRI of lumbar and thoracic spine to further evaluate back pain. Supplemental potassium. Recheck levels in the morning. DVT prophylaxis-Lovenox Current Visit: Yes Hospitalist: Subjective Interval history: She still complains of pain, I do not see MRI which was ordered yesterday. Patient said she was unable to tolerate MRI because of her pain, she said that prior to current illness and back pain she was an active person. We will have to reorder MRI for tomorrow and administer pain medication prior. No fever. Repeat blood cultures pending. Blood sugars are well controlled Exam - Constitutional Vitals: Period Temp Pulse Resp BP Sys/Bettencourt Pulse Ox Last 24 Hr 97.8 F-99.2 F 77-87 16-20 117-150/56-73 92-97 Exam: General appearance: mild distress, over weight - Head Head exam: Present: normocephalic, atraumatic - Eye Pupils: Present: RONNA - ENT ENT exam: Present: normal external ear exam - Neck Neck exam: Present: normal inspection. Absent: meningismus - Respiratory Respiratory exam: Present: clear to auscultation bilaterally, chest wall tenderness - Cardiovascular Cardiovascular exam: Present: regular rate and rhythm - GI/Abdominal GI/Abdominal exam: Present: normal bowel sounds, soft. Absent: tenderness - Extremities Exam Extremities exam: Present: other (Wound dressing on bilateral forearms around the area close.) - Neurological Exam Neurological exam: Present: alert, oriented X3. Marked tenderness in the thoracic and lumbar region of her back on even very minimal palpation. She is not ambulating because of her pain. Results - Labs CBC & BMP: 02/19/17 09:46 02/19/17 09:46 Lab Results: I have reviewed the past 24 hour labs Quality Measures - VTE Contraindication to Pharmacological VTE Prophylaxis: Already on Theraputic Agent , No Prophylaxis Needed
[2017-02-19 10:03] LABS: Basophils % 0.5 % (0.0-0.8); Eosinophils # 0.2 10*3/uL (0.0-0.87); Eosinophils % 2.6 % (0.00-10.9); Hematocrit 32.3 VOL% (35.7-47.0); Hemoglobin 10.9 GM/DL (12.0-16.0); Immature Granulocytes % 1.4 %; Immature Granulocytes Absolute 0.08 #; Lymphocytes # 1.2 10*3/uL (1.4-4.0); Lymphocytes % 21.8 % (21.3-54.2); Mean Corpuscular HGB Conc 33.7 GM/DL (32-36); Mean Corpuscular Hemoglobin 28 PG (27-34); Mean Corpuscular Volume 82.2 FL (87-102); Monocytes # 0.5 10*3/uL (0.11-0.8); Monocytes % 9.3 % (1.7-12.7); Neutrophils # 3.7 10*3/uL (1.4-7.4); Neutrophils % 64.4 % (38.7-73.9); Platelet Count 262 T/CUMM (130-400); Red Blood Count 3.93 MC/CUMM (3.8-5.5); Red Cell Distribution Width 12.9 % (9.3-17.3); White Blood Count 5.7 T/CUMM (4-12)
[2017-02-19] MEDS: INSULIN REGULAR 100 UNIT/ML SUBCUT SCH ×4 (10:19→22:53)
[2017-02-19] MEDS: INSULIN GLARGINE 100 UNIT/ML SUBCUT SCH (10:19)
[2017-02-19 10:33] LABS: Albumin 1.9 G/DL (3.4-5.0); Bilirubin,Total 0.4 MG/DL (0.2-1.0); Calcium 7.5 MG/DL (8.5-10.1); Osmolality,Calculated 281.5 MOS/KG (273-304); Total Protein 5.1 G/DL (6.4-8.3)
[2017-02-19 10:36] LABS: Potassium 2.5 MMOL/L (3.5-5.1)
--- NOTE | 2017-02-19 11:09 | Event Note ---
02/19/2017. Patient has bilateral antecubital draining sites and wound care has begun on those at this time. She is not getting up and moving very much and is very sluggish at this time. There is the odor of cigarette smoking the room although the patient denies having spoken wound. Will maintain present wound care.
[2017-02-19] MEDS: POTASSIUM CHLORIDE 20 MEQ TABLET PO SCH ×2 (14:26→22:54)
[2017-02-19] MEDS: ENOXAPARIN 40 MG/0.4 ML SYRINGE SUBCUT SCH (14:27)
[2017-02-19] MEDS: INSULIN LISPRO 100 UNIT/ML SUBCUT SCH ×2 (14:28→18:41)
[2017-02-19] MEDS: ONDANSETRON 4 MG/2 ML VIAL IV PRN (22:55)
[2017-02-20] MEDS: HYDROmorphone 2 MG/1 ML VIAL IV PRN ×6 (04:02→20:42)
[2017-02-20 05:26] LABS: Basophils % 0.5 % (0.0-0.8); Eosinophils # 0.2 10*3/uL (0.0-0.87); Hematocrit 32.3 VOL% (35.7-47.0); Hemoglobin 10.8 GM/DL (12.0-16.0); Immature Granulocytes Absolute 0.06 #; Lymphocytes # 1.6 10*3/uL (1.4-4.0); Lymphocytes % 27.7 % (21.3-54.2); Mean Corpuscular HGB Conc 33.4 GM/DL (32-36); Mean Corpuscular Hemoglobin 28 PG (27-34); Mean Corpuscular Volume 83.7 FL (87-102); Mean Platelet Volume 10.2 FL (9.6-12.0); Monocytes # 0.5 10*3/uL (0.11-0.8); Monocytes % 9.2 % (1.7-12.7); Neutrophils # 3.3 10*3/uL (1.4-7.4); Neutrophils % 57.6 % (38.7-73.9); Platelet Count 319 T/CUMM (130-400); Red Blood Count 3.86 MC/CUMM (3.8-5.5); Red Cell Distribution Width 13.1 % (9.3-17.3); White Blood Count 5.8 T/CUMM (4-12)
[2017-02-20 05:58] LABS: Albumin 1.9 G/DL (3.4-5.0); Bilirubin,Total 0.6 MG/DL (0.2-1.0); Calcium 7.7 MG/DL (8.5-10.1); Osmolality,Calculated 282.4 MOS/KG (273-304); Total Protein 5.2 G/DL (6.4-8.3)
[2017-02-20] MEDS: SODIUM CHLORIDE 0.9% 1,000 ML IV SCH ×3 (06:02→20:41)
[2017-02-20] MEDS: INSULIN REGULAR 100 UNIT/ML SUBCUT SCH ×4 (08:37→21:04)
[2017-02-20] MEDS ORDERED: POTASSIUM CHLORIDE 20 MEQ PACK PO ONE (08:52)
--- NOTE | 2017-02-20 08:53 | Hospitalist Progress Note ---
Assessment and Plan - Time spent with patient Time spent with patient: Greater than 30 minutes (1) Back pain Status: Acute Current Visit: Yes (2) Cellulitis of arm, left Status: Acute Current Visit: Yes (3) Cellulitis of arm, right Status: Acute Current Visit: Yes (4) Abscess of forearm, left Status: Acute Current Visit: Yes (5) Noncompliance with medications Status: Acute Current Visit: Yes (6) Abscess of right arm Status: Acute Assessment and plan: Continue vancomycin as it seems to be controlling the infection based on ESR and CRP trend. Follow final repeat blood cultures and adjust antibiotics accordingly. Continue pain medication. At antispasmodics, Flexeril. Increase lispro 14 units 3 times daily to her current insulin regimen, monitor fingerstick glucose. Reorder MRI of lumbar and thoracic spine to further evaluate back pain. Give dose of pain medication prior to help her during the process Supplement potassium. Recheck levels again in the morning. DVT prophylaxis-Lovenox Current Visit: Yes Hospitalist: Subjective Interval history: 41-year-old diabetic woman who was admitted for back pain, found to have bilateral antecubital abscesses status post debridement. Her cellulitis and abscess in the antecubital fossa are improving but she however continues to complain of back pain. Because of her bacteremia and back pain, it is important that we rule out discitis as a source of infection or a complication of her bacteremia, therefore, we will be sending her back for MRI of the thoracolumbar spine. She does not have fever, CRP is trending down She was able to ambulate to the bathroom per RN, we will now encourage her to participate in physical therapy as uch as her pain allows. Exam - Constitutional Vitals: Period Temp Pulse Resp BP Sys/Bettencourt Pulse Ox Last 24 Hr 97.4 F-98.9 F 73-110 18-28 113-153/61-78 95-99 Exam: General appearance: mild distress, over weight - Head Head exam: Present: normocephalic, atraumatic - Eye Pupils: Present: RONNA - ENT ENT exam: Present: normal external ear exam - Neck Neck exam: Present: normal inspection. Absent: meningismus - Respiratory Respiratory exam: Present: clear to auscultation bilaterally, chest wall tenderness - Cardiovascular Cardiovascular exam: Present: regular rate and rhythm - GI/Abdominal GI/Abdominal exam: Present: normal bowel sounds, soft. Absent: tenderness - Extremities Exam Extremities exam: Present: other (Wound dressing on bilateral forearms around the area close.) - Neurological Exam Neurological exam: Present: alert, oriented X3. Marked tenderness in the thoracic and lumbar region of her back on even very minimal palpation. She is not ambulating because of her pain. Results - Labs CBC & BMP: 02/20/17 05:02 02/20/17 05:02 Lab Results: I have reviewed the past 24 hour labs Quality Measures - VTE Contraindication to Pharmacological VTE Prophylaxis: Already on Theraputic Agent , No Prophylaxis Needed
[2017-02-20] MEDS: PANTOPRAZOLE 40 MG TABLET PO SCH (09:31)
[2017-02-20] MEDS: INSULIN GLARGINE 100 UNIT/ML SUBCUT SCH (09:31)
[2017-02-20] MEDS: INSULIN LISPRO 100 UNIT/ML SUBCUT SCH ×3 (09:31→16:18)
[2017-02-20] MEDS: VANCOMYCIN INJ 2,000 MG in SODIUM CHLORIDE 0.9% 500 ML IV SCH ×2 (10:26→21:01)
--- NOTE | 2017-02-20 11:31 | Event Note ---
02/20/2017. Patient is stable has been ambulating some. Wound care is progressing.
[2017-02-20] MEDS: ENOXAPARIN 40 MG/0.4 ML SYRINGE SUBCUT SCH (14:05)
[2017-02-20] MEDS: ZALEPLON 5 MG CAPSULE PO PRN (20:41)
[2017-02-20] MEDS: CYCLOBENZAPRINE 10 MG TABLET PO PRN (20:41)
[2017-02-21] MEDS: HYDROmorphone 2 MG/1 ML VIAL IV PRN ×6 (00:13→23:50)
[2017-02-21] MEDS: SODIUM CHLORIDE 0.9% 1,000 ML IV SCH ×3 (04:32→21:04)
[2017-02-21 05:14] LABS: Basophils # 0.1 10*3/uL (0.0-0.2); Basophils % 0.7 % (0.0-0.8); Eosinophils # 0.4 10*3/uL (0.0-0.87); Eosinophils % 5.9 % (0.00-10.9); Hematocrit 31.9 VOL% (35.7-47.0); Hemoglobin 10.6 GM/DL (12.0-16.0); Immature Granulocytes Absolute 0.07 #; Lymphocytes # 2.1 10*3/uL (1.4-4.0); Mean Corpuscular HGB Conc 33.2 GM/DL (32-36); Mean Corpuscular Hemoglobin 28 PG (27-34); Mean Corpuscular Volume 84.2 FL (87-102); Mean Platelet Volume 9.4 FL (9.6-12.0); Monocytes # 0.5 10*3/uL (0.11-0.8); Monocytes % 7.8 % (1.7-12.7); Neutrophils # 3.8 10*3/uL (1.4-7.4); Neutrophils % 54.6 % (38.7-73.9); Platelet Count 386 T/CUMM (130-400); Red Blood Count 3.79 MC/CUMM (3.8-5.5); Red Cell Distribution Width 13.1 % (9.3-17.3); White Blood Count 6.9 T/CUMM (4-12)
[2017-02-21 05:51] LABS: Alanine Aminotransferase 17 U/L (13-56); Albumin 1.8 G/DL (3.4-5.0); Alkaline Phosphatase 110 U/L (45-117); Aspartate Amino Transferase 15 U/L (0-37); Blood Urea Nitrogen < 1 MG/DL (7-18); Calcium 7.4 MG/DL (8.5-10.1); Glucose 122 MG/DL (74-106); Osmolality,Calculated 281.3 MOS/KG (273-304); Potassium 2.7 MMOL/L (3.5-5.1); Sodium 143 MMOL/L (136-145)
[2017-02-21 08:20] LABS: Magnesium 1.6 MG/DL (1.8-2.4)
[2017-02-21] MEDS: INSULIN REGULAR 100 UNIT/ML SUBCUT SCH ×4 (08:39→21:04)
[2017-02-21] MEDS: INSULIN LISPRO 100 UNIT/ML SUBCUT SCH ×3 (08:40→18:04)
--- NOTE | 2017-02-21 08:45 | Hospitalist Progress Note ---
Assessment and Plan (1) Cellulitis of arm, left Status: Acute Assessment and plan: The areas are noted bilaterally affecting the antecubital aspect of her arm. This finding is quite troubling. The patient reported a history of pulmonary embolism in 2004 and 2007 and multiple deep vein thrombosis. She was placed on Coumadin; however she reports that she has not taken it in months. We will check venous dopplers upper and lower for good measures. 6/5-I&D of left arm on 02/17 per surgery. Packing placed to left arm daily per nursing staff. Culture and sensitivity reports Streptococcus dysgalactia. We will continue broad-spectrum antibiotic coverage, DVT prophylaxis, and pain management. Current Visit: Yes (2) Cellulitis of arm, right Status: Acute Assessment and plan: The areas are noted bilaterally affecting the antecubital aspect of her arms. This finding is quite troubling. The patient reported a history of pulmonary embolism in 2004 and 2007 and multiple deep vein thrombosis. She was placed on Coumadin; however she reports that she has not taken it in months. We will check venous dopplers upper and lower for good measures. 6/5-I&D of right arm on 02/17 per surgery. Packing placed to right arm daily per nursing staff. Culture and sensitivity reports Streptococcus dysgalactia We will continue broad-spectrum antibiotic coverage, DVT prophylaxis, and pain management. Current Visit: Yes (3) Hyperglycemia Status: Acute Assessment and plan: Grossly hyperglycemic at the time of presentation; glucose noted 593. Will obtain HGA1C and start accuchecks with SS coverage. 6/-Blood sugars have been stable thus far, we will continue Accu-Cheks with sliding scale coverage. Current Visit: Yes Hospitalist: Subjective Interval history: Patient seen and examined; chart reviewed. No significant overnight events reported per staff. Exam - Constitutional Vitals: Period Temp Pulse Resp BP Sys/Bettencourt Pulse Ox Last 24 Hr 97.1 F-98.7 F 75-82 18-20 118-160/63-80 90-95 General appearance: normal weight, no acute distress - Head Head exam: Present: normal inspection, normocephalic, atraumatic - Eye Eye exam: Present: EOMI. Absent: conjunctival injection Pupils: Present: RONNA, normal accommodation - ENT ENT exam: Present: normal exam, normal external ear exam, normal oropharynx - Neck Neck exam: Present: normal inspection. Absent: lymphadenopathy, meningismus, thyromegaly - Respiratory Respiratory exam: Present: clear to auscultation bilaterally. Absent: rales, rhonchi, stridor, wheezes - Cardiovascular Cardiovascular exam: Present: regular rate and rhythm. Absent: carotid bruit, diastolic murmur, gallop, JVD, rubs, systolic murmur - GI/Abdominal GI/Abdominal exam: Present: normal bowel sounds, soft - Extremities Exam Extremities exam: Present: other (Wounds to bilateral antecubital aspects of both arms) - Back Exam Back exam: Present: normal inspection - Neurological Exam Neurological exam: Present: alert, oriented X3, CN II-XII intact - Psychiatric Psychiatric exam: Present: normal affect, normal mood - Skin Skin exam: Present: normal color, warm, dry Results - Labs CBC & BMP: 02/21/17 05:04 02/21/17 05:04 Lab Results: I have reviewed the past 24 hour labs Quality Measures - VTE Contraindication to Pharmacological VTE Prophylaxis: Already on Theraputic Agent , No Prophylaxis Needed
--- NOTE | 2017-02-21 10:06 | Event Note ---
Subjective Patient is postop day #4 status post I&D of bilateral antecubital fossa abscesses. Cultures have grown pansensitive Streptococcus dysgalactica and blood cultures grew 2/2 bottles of pansensitive group B strep. Patient continues on vancomycin with daily packing changes. Patient reports her pain is significantly improved. She is afebrile Vital signs stable Bilateral upper extremities: Dressings were taken down. There is significant decrease in erythema and edema with packing present. No malodor is noted. No fluid collection is palpable. Distally digits are warm with brisk capillary refill; motor and sensory function are intact. Blood cultures: 2/2 group B strep Wound cultures: Streptococcus dysgalactica Assessment and plan: Patient is postop day #4 status post I&D of bilateral antecubital fossa abscesses. She is progressing appropriately at this point on IV antibiotics. From an abscess standpoint, she could transition to oral antibiotics with daily wound care. It appears the final antibiotic decisions are pending results of repeat blood cultures. Patient reports her mother has assisted with packing changes in the past and this could be her wound care plan upon discharge. Follow with Dr. Torres in approximately 1 week.
[2017-02-21] MEDS: PANTOPRAZOLE 40 MG TABLET PO SCH (10:31)
[2017-02-21] MEDS: INSULIN GLARGINE 100 UNIT/ML SUBCUT SCH (11:10)
[2017-02-21] MEDS: VANCOMYCIN INJ 2,000 MG in SODIUM CHLORIDE 0.9% 500 ML IV SCH ×2 (15:00→21:04)
[2017-02-21] MEDS: ENOXAPARIN 40 MG/0.4 ML SYRINGE SUBCUT SCH (15:02)
--- NOTE | 2017-02-21 15:31 | Magnetic Resonance Report ---
History: Back pain, bacteremia, evaluate for discitis Date: 02/21/2017 Study: MRI lumbar spine without contrast Comparison exam: No previous The lumbar spine was imaged in the sagittal and axial planes on the 1.2 Annie open magnet without IV contrast. Sequences include T1, T2, and STIR images. The lumbar vertebral bodies are well aligned and are well-maintained in height. There is no lumbar compression fracture. There is some moderate degenerative disc narrowing at L2-L3. The other disks are fairly well-maintained in height. There are scattered mild to moderate disc desiccation. There is mild lumbar spondylosis. The conus medullaris terminates at the mid L1 level and is without gross mass lesion. T12-L1: No significant spinal or neural foraminal stenosis L1-L2: No significant spinal or neural foraminal stenosis L2-L3: There is mild posterior diffuse bulging disc and vertebral body osteophyte. There is mild narrowing of the inferior recess of either neural foramen secondary to posterior lateral bulging disc. L3-L4: There is no significant spinal or neural foraminal stenosis L4-L5: There is mild narrowing of the spinal canal related to mild posterior diffuse disc bulging as well as mild ligament flavum and facet hypertrophy. There is mild narrowing of the inferior recess of either neural foramen secondary to posterior lateral bulging disc. L5-S1: There is mild spinal stenosis related to mild posterior diffuse disc bulging as well as ligamentum flavum and facet hypertrophy. There is moderate narrowing of the inferior recess of either neural foramen secondary to posterior lateral bulging disc and facet hypertrophy, left more than right. Impression: No high-grade spinal stenosis at the lumbar level. Multilevel mild posterior diffuse disc bulging. No evidence of lumbar discitis. Please refer to the MRI of thoracic spine study from the same day for additional information. PROCEDURE INTERPRETED AT [facility] DEPARTMENT OF RADIOLOGY Final Report Signed by: Dr. Keya Dowd
--- NOTE | 2017-02-21 17:17 | Magnetic Resonance Report ---
History: Back pain. Bacteremia. Evaluate for discitis Date: 02/21/2017 Study: MRI thoracic spine without contrast Comparison exam: No previous thoracic MRI The thoracic spine was imaged in the sagittal and axial planes on the 1.2 Annie open magnet without IV contrast. Sequences include T1, T2, and STIR images. There is nonspecific effacement of the anterior and posterior subarachnoid spaces diffusely at the mid T8 level through the T11 level of a nonspecific nature. This process is of moderately increased T1 signal with respect to CSF on the T1-weighted images and decreased T2 signal on the standard T2 images. There is no abnormal signal within the adjacent thoracic discs to specifically suggest discitis. There is no abnormal signal within the vertebral body marrow to suggest osteomyelitis. There is some nonspecific edema of the paraspinous soft tissues. There is a lobular hyperintense T1 and T2 lesion in the T11 vertebral body compatible with hemangioma measuring 14 mm diameter. There is some mild hypointense T2 signal throughout the thoracic spine compatible with disc desiccation. There is mild scattered anterior spondylosis. The thoracic cord is normal in signal without obvious intrinsic mass lesion or edema on this noncontrast study. There is no focal disc extrusion. There is mild left greater than right pleural effusion. Discussed with 2E nursing staff, but will try to contact consulting physicians as well. Impression: Abnormal epidural process extending from the mid T8 level through the T11 vertebral body level. This could represent inflammation/infection or infiltrative neoplastic process. Epidural abscess cannot be completely excluded. Consider post IV contrast study for further evaluation. There is no evidence of discitis or vertebral body osteomyelitis, however. There is some nonspecific left paravertebral soft tissue edema at the same level. Physician notification process was initiated just prior to this dictation. Other nonacute information discussed above PROCEDURE INTERPRETED AT [facility] DEPARTMENT OF RADIOLOGY Final Report Signed by: Dr. Keya Dowd
--- NOTE | 2017-02-21 17:44 | Magnetic Resonance Report ---
History: Back pain. Bacteremia. Abnormal noncontrast MRI thoracic spine Date: 02/21/2017 Study: MRI thoracic spine with IV contrast Comparison exam: Noncontrast MRI of thoracic spine earlier 02/21/2017 T1 fat sat images were obtained before and after the IV administration of Dotarem contrast . Sagittal and axial images are submitted. There is patient motion artifact. There is abnormal epidural enhancement extending from the lower T8 vertebral body level through the T11 vertebral body level. There are small areas of decreased enhancement ventrally which could represent small areas of epidural abscess formation, one area dorsal to the T10 vertebral body and the other dorsal to the T11 vertebral body, the largest of which measures 7 mm diameter. This is suspicious for potential early epidural abscess formation as discussed with Dr. Rodriguez by telephone just prior to this dictation. Neurosurgical consultation is advised. Impression: Findings suspicious for potential epidural abscess formation. Neurosurgical consultation is advised PROCEDURE INTERPRETED AT [facility] DEPARTMENT OF RADIOLOGY Final Report Signed by: Dr. Keya Dowd
[2017-02-21] MEDS ORDERED: POTASSIUM CHLORIDE 20 MEQ TABLET PO SCH (21:00)
[2017-02-21] MEDS: ZALEPLON 5 MG CAPSULE PO PRN (21:04)
[2017-02-21] MEDS: CYCLOBENZAPRINE 10 MG TABLET PO PRN (21:05)
[2017-02-22] MEDS: HYDROmorphone 2 MG/1 ML VIAL IV PRN ×6 (03:32→22:26)
[2017-02-22 08:21] LABS: Basophils # 0.1 10*3/uL (0.0-0.2); Basophils % 0.7 % (0.0-0.8); Eosinophils # 0.4 10*3/uL (0.0-0.87); Eosinophils % 6.5 % (0.00-10.9); Hematocrit 32.7 VOL% (35.7-47.0); Hemoglobin 10.9 GM/DL (12.0-16.0); Immature Granulocytes % 0.9 %; Immature Granulocytes Absolute 0.06 #; Lymphocytes # 1.9 10*3/uL (1.4-4.0); Lymphocytes % 28.5 % (21.3-54.2); Mean Corpuscular HGB Conc 33.3 GM/DL (32-36); Mean Corpuscular Hemoglobin 28 PG (27-34); Mean Corpuscular Volume 84.5 FL (87-102); Mean Platelet Volume 9.5 FL (9.6-12.0); Monocytes # 0.5 10*3/uL (0.11-0.8); Monocytes % 7.9 % (1.7-12.7); Neutrophils # 3.7 10*3/uL (1.4-7.4); Neutrophils % 55.5 % (38.7-73.9); Platelet Count 418 T/CUMM (130-400); Red Blood Count 3.87 MC/CUMM (3.8-5.5); Red Cell Distribution Width 13.2 % (9.3-17.3); White Blood Count 6.7 T/CUMM (4-12)
[2017-02-22 08:54] LABS: Bilirubin,Total 0.7 MG/DL (0.2-1.0); Calcium 7.8 MG/DL (8.5-10.1); Magnesium 1.8 MG/DL (1.8-2.4); Osmolality,Calculated 279.1 MOS/KG (273-304); Phosphorous 4.9 MG/DL (2.5-4.9); Potassium 2.8 MMOL/L (3.5-5.1); Total Protein 5.4 G/DL (6.4-8.3)
[2017-02-22] MEDS: INSULIN REGULAR 100 UNIT/ML SUBCUT SCH ×4 (09:15→22:24)
[2017-02-22] MEDS: INSULIN LISPRO 100 UNIT/ML SUBCUT SCH ×3 (09:16→17:53)
--- NOTE | 2017-02-22 10:07 | Hospitalist Progress Note ---
Assessment and Plan (1) Abscess Status: Acute Assessment and plan: Bilateral upper extremities abscesses, positive blood cultures for streptococcus. Current Visit: Yes (2) Epidural abscess Status: Acute Assessment and plan: Inflammatory changes are identified on MRI without bone or disc involvement. Adjacent soft tissue inflammatory changes without overlying skin changes. No motor impairment. Superimposed history of penitentiary back and leg pains without prior spine imaging. Current Visit: Yes Hospitalist: Subjective Interval history: 41-year-old female who presented with bilateral antecubital fossa abscesses. These were drained on February 17. Cultures of the arms bilaterally showed Streptococcus dysgalactia, blood cultures at admission were positive for strep agalactiae broadly sensitive (patient reports allergy to penicillin). Due to complaints of back pain (which actually has been present on several ER visits over the last 2 years by the record) the patient received a spinal evaluation which was completed yesterday. There appears to be soft tissue inflammatory changes in the thoracic area no vertebral or disc involvement is noted however there appears to be an inflammatory process involving the epidural space T8- T11. Patient continues to have no motor impairment but does have significant pain in the back with outpatient pain clinic visits. Her vital signs are stable she is afebrile. White count is normal. Exam - Constitutional Vitals: Period Temp Pulse Resp BP Sys/Bettencourt Pulse Ox Last 24 Hr 97.0 F-99.0 F 64-78 18-21 110-167/65-81 91-99 General appearance: over weight - Respiratory Respiratory exam: Present: clear to auscultation bilaterally. Absent: rales, rhonchi, wheezes - Cardiovascular Cardiovascular exam: Present: regular rate and rhythm. Absent: diastolic murmur - GI/Abdominal GI/Abdominal exam: Present: normal bowel sounds. Absent: tenderness, rebound - Extremities Exam Extremities exam: Absent: edema - Neurological Exam Neurological exam: Present: alert, oriented X3 Results - Labs CBC & BMP: 02/22/17 08:02 02/22/17 08:02 Labs: CRP 4.94 Quality Measures - VTE Contraindication to Pharmacological VTE Prophylaxis: Already on Theraputic Agent , No Prophylaxis Needed
[2017-02-22] MEDS: INSULIN GLARGINE 100 UNIT/ML SUBCUT SCH (10:22)
[2017-02-22] MEDS: PANTOPRAZOLE 40 MG TABLET PO SCH (10:23)
[2017-02-22] MEDS: POTASSIUM CHLORIDE 20 MEQ TABLET PO SCH ×4 (10:31→22:25)
[2017-02-22] MEDS: VANCOMYCIN INJ 2,000 MG in SODIUM CHLORIDE 0.9% 500 ML IV SCH ×2 (13:08→22:25)
[2017-02-22] MEDS: SODIUM CHLORIDE 0.9% 1,000 ML IV SCH ×3 (13:13→22:25)
[2017-02-22] MEDS: ENOXAPARIN 40 MG/0.4 ML SYRINGE SUBCUT SCH (14:42)
--- NOTE | 2017-02-22 17:07 | Event Note ---
Subjective Patient is postop day #5 status post I&D of bilateral antecubital fossa abscesses. Patient continues on vancomycin with daily packing changes. Patient reports her pain is significantly improved. She is afebrile Vital signs stable Bilateral upper extremities: Dressings were taken down. There is continued decrease in erythema and edema with packing present. No malodor is noted. No fluid collection is palpable. Distally digits are warm with brisk capillary refill; motor and sensory function are intact. Blood cultures: 2/2 group B strep Wound cultures: Streptococcus dysgalactica Assessment and plan: Patient is postop day #5 status post I&D of bilateral antecubital fossa abscesses. She is progressing appropriately at this point on IV antibiotics. Pt with repeat blood cultures pending final results and MRI with evidence of epidural abscess. From an abscess standpoint, she could transition to oral antibiotics with daily wound care. Abx treatment for above findings will be adequate for abscess treatment. Patient reports her mother has assisted with packing changes in the past and this could be her wound care plan upon discharge. Follow with Dr. Melissa richard 1 wk after d/c.
--- NOTE | 2017-02-22 19:01 | Infectious Disease Consult ---
Assessment and Plan (1) Abscess of forearm, left Status: Acute Assessment and plan: Status post I&D and she is receiving antibiotics. Symptomatically improved. Current Visit: Yes (2) Abscess of right arm Status: Acute Assessment and plan: Status post I&D and she is receiving antibiotics. Symptomatically improved. Current Visit: Yes (3) Epidural abscess Status: Acute Assessment and plan: Recommendations: Her reported penicillin allergy with [id number] so I am going to try her on ceftriaxone 2 g IV daily. However I will wait until the morning when full complement of staff is present. The patient will need IV antibiotic therapy for 6 weeks given the epidural infection. Inflammatory markers will be monitored weekly to assess her response to therapy. Thank you very much for the consult. Will follow. Current Visit: Yes History of Present Illness Chief complaint: Bacteremia History of present illness: Ms. Hurley is a 41 year old female who presented to hospital on 15 February with worsening back pain present for several weeks and then abscesses on both forearms present for almost a week. She said she did not have any fever or other constitutional symptoms. Blood cultures on admission have come up positive for group B strep agalactiae. She had I&D of abscesses to the arms and strep disgalactiae was cultured from both. I am asked to assist with management. She gives history of penicillin allergy but this was not life- threatening; it caused her to have a fever to 104. Overall she feels better since she was first admitted. She did have MRI done of the spine that showed epidural enhancement in the T8-T11 area. No history of interventions such as injections into her back. Home Medications Medication Instructions Recorded Confirmed Type Gabapentin [Gabapentin] 600 mg PO BID 02/08/15 02/15/17 History Levothyroxine Tab [Synthroid Tab] 88 mcg PO DAILY 02/08/15 02/15/17 History Furosemide Tab [Lasix Tab] 10 mg PO DAILY PRN 01/22/16 02/15/17 History metFORMIN [Glucophage] 500 mg PO BID W/MEALS 05/11/16 02/15/17 History Insulin Detemir [Levemir FlexPen] 35 unit SUBCUT DAILY 02/15/17 02/15/17 History Warfarin [Coumadin] 2 mg PO DAILY@1800 02/15/17 02/15/17 History Allergies Allergy/AdvReac Type Severity Reaction Status Date / Time morphine Allergy Intermediate RASH Verified 06/05/16 22:55 ketorolac [From Toradol] Allergy RASH Verified 06/05/16 22:55 levofloxacin [From Levaquin] Allergy HIVES Verified 06/05/16 22:55 meperidine [From Demerol] AdvReac Intermediate Nausea Verified 06/05/16 22:55 Penicillins AdvReac Intermediate Fever Verified 06/05/16 22:55 12 point system: reviewed and no additional remarkable complaints except as stated (Per HPI) Medical,Surgical,& Family Hx - Medical History Psychological: History of: Anxiety Disorders, Depression Endocrine: History of: Diabetes Mellitus (IDDM), Diabetes Mellitus (NIDDM) Rheumatology: History of;: Fibromyalgia Respiratory: History of: Pulmonary Embolism Gastrointestinal: History of: Gastrointestinal Bleed, GI Problems ("gallbladder problems") Musculoskeletal: History of: Degenerative Disk Disease, Musculoskeletal Problems (fibromyalgia) Reproductive: History of: Reproductive Problems (tubectomy) Other: History of: Miscellaneous Medical Problems (fibromyalgia) - Surgical History Abdominal Surgeries: Surgical HX of: Appendectomy, Cholecystectomy Reproductive Surgeries: Surgical HX of;: Section, Gynecologic Surgery ( benign ovarian tumor resection) - Social History Smoking Status: Current every day smoker Frequency of Alcohol Use: None Type of Drug Use: None (History of drug abuse) Infectious Disease Exam H&P - Constitutional Vitals: Vital Signs Temp Pulse Resp BP Pulse Ox 97.9 F 80 20 132/71 98 02/22/17 16:00 02/22/17 16:00 02/22/17 16:00 02/22/17 16:00 02/22/17 16:00 Intake and Output 02/22/17 02/22/17 02/22/17 07:59 15:59 23:59 Intake Total 1550 / 1550 800 / 800 500 / 500 Balance 1550 / 1550 800 / 800 500 / 500 Intake: IV 1000 / 1000 500 / 500 Ns 1,000 ml @ 125 mls/hr 1000 / 1000 IV .Q8H LAMAR Rx#: [id number] Vancomycin Inj 1,000 mg 500 / 500 In Ns 500 ml @ 250 mls/hr IV Q12H LAMAR Rx#: [id number] Oral 550 / 550 800 / 800 Other: Voiding Method Toilet Toilet # Voids 4 4 # Bowel Movements 1 Exam: General: Patient comfortable, nontoxic appearing, morbidly obese HEENT: Mucous membranes pink and moist, anicteric acyanotic, RONNA, no oral exudates Neck: Supple, no thyroid gland enlargement, no lymphadenopathy Respiratory system: Breath sounds vesicular, no crepitations or wheezes Cardiovascular: Normal S1 and S2, no murmurs appreciated Abdomen: Normal bowel sounds, soft nontender throughout, unable to appreciate organomegaly or mass due to massive obesity Genitourinary: No suprapubic pain or CVA tenderness Extremities: no edema, bandages 2 abscesses on both forearms Skin: No rash Reports - Labs CBC & BMP: 02/22/17 08:02 02/23/17 05:34 Labs: Laboratory Results - last 24 hr 02/22/17 02/22/17 02/22/17 07:20 08:02 08:02 WBC 6.7 RBC 3.87 Hgb 10.9 L Hct 32.7 L MCV 84.5 L MCH 28 MCHC 33.3 RDW 13.2 Plt Count 418 H MPV 9.5 L Neut % (Auto) 55.5 Lymph % (Auto) 28.5 [place] % (Auto) 7.9 Eos % (Auto) 6.5 Baso % (Auto) 0.7 Neut # (Auto) 3.7 Lymph # (Auto) 1.9 [place] # (Auto) 0.5 Eos # (Auto) 0.4 Baso # (Auto) 0.1 Immature Gran % 0.9 Nucleated RBC % 0.0 Immature Gran # 0.06 Nucleated RBCs # 0.00 ESR Westergren Sodium 142 Potassium 2.8 L Chloride 100 Carbon Dioxide 33 H Anion Gap 11.8 BUN 1 L Creatinine 0.60 GFR Calculation 158 BUN/Creatinine Ratio 1.00 L Glucose 118 H POC Glucose 121 H Calculated Osmolality 279.1 Calcium 7.8 L Phosphorus 4.9 Magnesium 1.8 Total Bilirubin 0.70 AST 17 ALT 16 Alkaline Phosphatase 109 C-Reactive Protein Total Protein 5.4 L Albumin 2.0 L Globulin 3.4 Albumin/Globulin Ratio 0.5 L 02/22/17 02/22/17 02/22/17 08:02 08:02 11:32 WBC RBC Hgb Hct MCV MCH MCHC RDW Plt Count MPV Neut % (Auto) Lymph % (Auto) [place] % (Auto) Eos % (Auto) Baso % (Auto) Neut # (Auto) Lymph # (Auto) [place] # (Auto) Eos # (Auto) Baso # (Auto) Immature Gran % Nucleated RBC % Immature Gran # Nucleated RBCs # ESR Westergren 100 H Sodium Potassium Chloride Carbon Dioxide Anion Gap BUN Creatinine GFR Calculation BUN/Creatinine Ratio Glucose POC Glucose 149 H Calculated Osmolality Calcium Phosphorus Magnesium Total Bilirubin AST ALT Alkaline Phosphatase C-Reactive Protein 4.94 H Total Protein Albumin Globulin Albumin/Globulin Ratio 02/22/17 02/22/17 02/22/17 15:24 15:56 17:41 WBC RBC Hgb Hct MCV MCH MCHC RDW Plt Count MPV Neut % (Auto) Lymph % (Auto) [place] % (Auto) Eos % (Auto) Baso % (Auto) Neut # (Auto) Lymph # (Auto) [place] # (Auto) Eos # (Auto) Baso # (Auto) Immature Gran % Nucleated RBC % Immature Gran # Nucleated RBCs # ESR Westergren Sodium Potassium Chloride Carbon Dioxide Anion Gap BUN Creatinine GFR Calculation BUN/Creatinine Ratio Glucose POC Glucose 77 95 121 H Calculated Osmolality Calcium Phosphorus Magnesium Total Bilirubin AST ALT Alkaline Phosphatase C-Reactive Protein Total Protein Albumin Globulin Albumin/Globulin Ratio - Reports Microbiology: Microbiology 02/18/17 14:31 Blood Culture - Preliminary Blood No growth at 3 days 02/18/17 14:31 Blood Culture - Preliminary Blood No growth at 3 days - Diagnostic Findings Procedure: MRI: report reviewed by me (MRI T-spine noted with epidural enhancement and T8-T11 area, no discitis or osteomyelitis reported)
[2017-02-22] MEDS: ZALEPLON 5 MG CAPSULE PO PRN (22:25)
[2017-02-22] MEDS: CYCLOBENZAPRINE 10 MG TABLET PO PRN (22:26)
[2017-02-23] MEDS: HYDROmorphone 2 MG/1 ML VIAL IV PRN ×6 (03:37→21:16)
[2017-02-23 06:21] LABS: Calcium 7.4 MG/DL (8.5-10.1); Magnesium 1.9 MG/DL (1.8-2.4); Osmolality,Calculated 282.8 MOS/KG (273-304); Potassium 3.6 MMOL/L (3.5-5.1)
[2017-02-23] MEDS: SODIUM CHLORIDE 0.9% 1,000 ML IV SCH ×3 (07:46→20:06)
[2017-02-23] MEDS: INSULIN REGULAR 100 UNIT/ML SUBCUT SCH ×4 (07:48→20:05)
--- NOTE | 2017-02-23 08:58 | Hospitalist Progress Note ---
Assessment and Plan (1) Abscess Status: Acute Assessment and plan: Bilateral upper extremities abscesses, positive blood cultures for streptococcus. Current Visit: Yes (2) Epidural abscess Status: Acute Assessment and plan: Inflammatory changes are identified on MRI without bone or disc involvement. Adjacent soft tissue inflammatory changes without overlying skin changes. No motor impairment. Superimposed history of skilled nursing back and leg pains without prior spine imaging. Current Visit: Yes Hospitalist: Subjective Interval history: 41-year-old female who presented with bilateral antecubital fossa abscesses. These were drained on 17 February with cultures of the arms bilaterally showing a streptococcus dysgalactia. Blood cultures done on admission were positive for strep agalactiae both broadly sensitive. Patient has a history of chronic back pain and due to persistence imaging was performed which demonstrated inflammatory changes involve the epidural space at T8-T11 without evidence of involvement of the disc or the bony structures. There is no motor dysfunction present. The patient was seen by infectious disease and they will attempt use of Rocephin to introduce a prolonged course of therapy. Her CRP repeated today is fallen from 4.9-3.6 her pain is much less and she is able move about the room with a walker. Vital signs remained stable with no fever. Exam - Constitutional Vitals: Period Temp Pulse Resp BP Sys/Bettencourt Pulse Ox Last 24 Hr 97.1 F-98.5 F 65-86 18-20 127-156/69-82 93-98 General appearance: over weight - Respiratory Respiratory exam: Present: clear to auscultation bilaterally. Absent: rales, rhonchi, wheezes - Cardiovascular Cardiovascular exam: Present: regular rate and rhythm. Absent: diastolic murmur - GI/Abdominal GI/Abdominal exam: Present: normal bowel sounds. Absent: tenderness - Extremities Exam Extremities exam: Absent: edema - Neurological Exam Neurological exam: Present: alert, oriented X3 Results - Labs CBC & BMP: 02/22/17 08:02 02/23/17 05:34 Labs: Magnesium 1.9 CRP 3.63 Quality Measures - VTE Contraindication to Pharmacological VTE Prophylaxis: Already on Theraputic Agent , No Prophylaxis Needed
[2017-02-23] MEDS: INSULIN LISPRO 100 UNIT/ML SUBCUT SCH ×3 (09:12→18:16)
[2017-02-23] MEDS: INSULIN GLARGINE 100 UNIT/ML SUBCUT SCH (09:13)
[2017-02-23] MEDS: PANTOPRAZOLE 40 MG TABLET PO SCH (09:15)
[2017-02-23] MEDS: VANCOMYCIN INJ 2,000 MG in SODIUM CHLORIDE 0.9% 500 ML IV SCH (10:53)
--- NOTE | 2017-02-23 11:02 | Infectious Disease Progress ---
Assessment and Plan (1) Abscess of forearm, left Status: Acute Assessment and plan: Status post I&D and she is receiving antibiotics. Symptomatically improved. However I think there is another abscess just superior to the antecubital fossa which probably should be incised and drained as well. Continue antibiotics. This was discussed with the surgery PA. Current Visit: Yes (2) Abscess of right arm Status: Acute Assessment and plan: Status post I&D and she is receiving antibiotics. No evidence of ongoing infection here. Current Visit: Yes (3) Epidural abscess Status: Acute Assessment and plan: Patient has history of penicillin allergy however she told me today that she is tolerated cefazolin and ceftriaxone in the past. Recommendations: 1. Switch from vancomycin to ceftriaxone 2 g daily 2. Consult high school social studies tutor to arrange outpatient antibiotic therapy 3. Last day of ceftriaxone therapy will be March 31 4. Patient probably needs a PICC line however the close proximity of the abscesses on her forearms precludes placement of PICC line at this time. She has fairly good peripheral access and will utilize this for her antibiotics for the next 1-2 weeks until the areas of abscesses heal. Case discussed with Dr. Garcia. Current Visit: Yes Infectious Disease - PN: Subj Interval history: Patient doing fairly okay, still with back pain. Area about the abscesses on her forearms feels better no significant pain. She has been afebrile. No nausea vomiting or diarrhea on antibiotics. Infectious Disease Exam (PN) - Constitutional Vitals: Temp Pulse Resp BP Pulse Ox 97.2 F L 65 20 133/70 98 02/23/17 07:45 02/23/17 07:45 02/23/17 07:45 02/23/17 07:45 02/23/17 07:45 General appearance: over weight Exam: General appearance: no acute distress - Eye Eye exam: Present: EOMI. no icterus Pupils: Present: RONNA - ENT ENT exam: no oral exudates - Respiratory Respiratory exam: vesicular BS, no crepitations or wheezes - Cardiovascular Cardiovascular exam: regular rate and rhythm, no murmurs - GI/Abdominal GI/Abdominal exam: normal bowel sounds, soft, non-tender, no organomegaly or mass - Extremities Exam Extremities exam: no edema, 2 open wounds to right antecubital fossa from recent I&D, clean pink bases no purulence and no surrounding induration or significant erythema. The left antecubital fossa there is one open wound with again healthy pink tissue no purulence and no surrounding erythema or induration. Superiorly just above the antecubital fossa on the left there is about a 2 cm fluctuant nodule which is a bit tender. - Skin Skin exam: no rash Results - Labs CBC & BMP: 02/22/17 08:02 02/23/17 05:34 Lab Results: I have reviewed the past 24 hour labs Quality Measures - VTE Contraindication to Pharmacological VTE Prophylaxis: Already on Theraputic Agent , No Prophylaxis Needed
[2017-02-23] MEDS: CYCLOBENZAPRINE 10 MG TABLET PO PRN ×2 (11:17→21:17)
--- NOTE | 2017-02-23 11:44 | Event Note ---
Subjective Patient is postop day #6 status post I&D of bilateral antecubital fossa abscesses. Patient continues on vancomycin with daily packing changes. Patient reports her pain is significantly improved. She is afebrile. Concern expressed by Dr. Briceno of possible new abscess left AC. Vital signs stable Bilateral upper extremities: Dressings were taken down. There is continued decrease in erythema and edema with packing present. No malodor is noted. There are areas of induration over bilateral AC - no fluctuance or tenderness. Distally digits are warm with brisk capillary refill; motor and sensory function are intact. Blood cultures: 2/2 group B strep Wound cultures: Streptococcus dysgalactica Assessment and plan: Patient is postop day #6 status post I&D of bilateral antecubital fossa abscesses. I believe these are areas of scarring and induration from applied wraps; no clear abscess present. Recommend monitoring at this time - wound care orders changed. Continue abx per ID. Patient reports her mother has assisted with packing changes in the past and this could be her wound care plan upon discharge. Follow with Dr. Torres or partner appx 1 wk after d/c.
[2017-02-23] MEDS: cefTRIAXone 2,000 MG in SODIUM CHLORIDE 0.9% 100 ML IV SCH (13:07)
[2017-02-23] MEDS: ENOXAPARIN 40 MG/0.4 ML SYRINGE SUBCUT SCH (14:38)
[2017-02-24] MEDS: HYDROmorphone 2 MG/1 ML VIAL IV PRN ×7 (00:59→21:42)
[2017-02-24] MEDS: SODIUM CHLORIDE 0.9% 1,000 ML IV SCH ×3 (04:04→16:52)
[2017-02-24] MEDS: ONDANSETRON 4 MG/2 ML VIAL IV PRN ×4 (07:25→21:51)
[2017-02-24] MEDS: INSULIN REGULAR 100 UNIT/ML SUBCUT SCH ×4 (08:08→21:26)
[2017-02-24] MEDS: INSULIN LISPRO 100 UNIT/ML SUBCUT SCH ×3 (08:45→16:52)
[2017-02-24] MEDS: PANTOPRAZOLE 40 MG TABLET PO SCH (08:45)
[2017-02-24] MEDS: INSULIN GLARGINE 100 UNIT/ML SUBCUT SCH (08:45)
[2017-02-24] MEDS: CYCLOBENZAPRINE 10 MG TABLET PO PRN ×2 (08:46→13:34)
[2017-02-24] MEDS: oxyCODONE/ACETAMINOPHEN 5-325 MG TABLET PO PRN (08:46)
--- NOTE | 2017-02-24 09:19 | Hospitalist Progress Note ---
Assessment and Plan (1) Abscess Status: Acute Assessment and plan: Bilateral upper extremities abscesses, positive blood cultures for streptococcus. Current Visit: Yes (2) Epidural abscess Status: Acute Assessment and plan: Inflammatory changes are identified on MRI without bone or disc involvement. Adjacent soft tissue inflammatory changes without overlying skin changes. No motor impairment. Superimposed history of [facility] back and leg pains without prior spine imaging. Current Visit: Yes Hospitalist: Subjective Interval history: 41-year-old female presented with bilateral antecubital fossa abscesses which were drained on 17 February. Arm cultures show Streptococcus dysgalactia. Blood cultures done on admission were positive for Streptococcus agalactiae. Both organisms were broadly sensitive. The patient had a history of chronic back pain imaging studies however suggest a T8-T11 epidural abscess without involvement of the disc or the adjacent bony structures. She had no motor dysfunction. She is given her history of penicillin allergies however thus far she is doing very well on Rocephin. She is ambulating with walker with stable vital signs and afebrile. Exam - Constitutional Vitals: Period Temp Pulse Resp BP Sys/Bettencourt Pulse Ox Last 24 Hr 97.9 F-99.0 F 68-80 18-22 125-158/54-87 93-97 General appearance: over weight - Respiratory Respiratory exam: Present: clear to auscultation bilaterally. Absent: rales, rhonchi, wheezes - Cardiovascular Cardiovascular exam: Present: regular rate and rhythm - GI/Abdominal GI/Abdominal exam: Present: normal bowel sounds. Absent: tenderness - Extremities Exam Extremities exam: Absent: edema - Neurological Exam Neurological exam: Present: alert, oriented X3 Results - Labs CBC & BMP: 02/22/17 08:02 02/23/17 05:34 Quality Measures - VTE Contraindication to Pharmacological VTE Prophylaxis: Already on Theraputic Agent , No Prophylaxis Needed Specialty Discharge - Follow Up or Referrals Follow up with: Shmuel Torres MD [Physician] - 03/01/17 9:00 am
--- NOTE | 2017-02-24 09:50 | Infectious Disease Progress ---
Assessment and Plan (1) Abscess of forearm, left Status: Acute Assessment and plan: Status post I&D and she is receiving antibiotics. Symptomatically improved. We will continue dressing changes and antibiotics. Current Visit: Yes (2) Abscess of right arm Status: Acute Assessment and plan: Status post I&D and she is receiving antibiotics. No evidence of ongoing infection here. Current Visit: Yes (3) Epidural abscess Status: Acute Assessment and plan: Recommendations: 1. Continue ceftriaxone 2 g daily. Last day of therapy will be March 31. 2. Discussed with social and political studies professor and she has been set up for home IV antibiotics 3. Appointment to see me in 1 week 4. Patient probably needs a PICC line however the close proximity of the abscesses on her forearms precludes placement of PICC line at this time. She has fairly good peripheral access and will utilize this for her antibiotics Current Visit: Yes Infectious Disease - PN: Subj Interval history: Doing well, surgery felt that the lump to left arm above antecubital fossa was not an abscess. Back pain generally improved. No fever. No problems with ceftriaxone. No vomiting or diarrhea. Infectious Disease Exam (PN) - Constitutional Vitals: Temp Pulse Resp BP Pulse Ox 97.9 F 80 22 148/75 96 02/24/17 08:00 02/24/17 08:00 02/24/17 08:00 02/24/17 08:00 02/24/17 08:00 General appearance: over weight Exam: General appearance: no acute distress - Eye Eye exam: Present: EOMI. no icterus Pupils: Present: RONNA - ENT ENT exam: no oral exudates - Respiratory Respiratory exam: vesicular BS, no crepitations or wheezes - Cardiovascular Cardiovascular exam: regular rate and rhythm, no murmurs - GI/Abdominal GI/Abdominal exam: normal bowel sounds, soft, non-tender, no organomegaly or mass - Extremities Exam Extremities exam: no edema, wounds about both antecubital fossae noted packed, mild surrounding induration but no erythema, no edin pus - Skin Skin exam: no rash Results - Labs CBC & BMP: 02/22/17 08:02 02/23/17 05:34 Lab Results: I have reviewed the past 24 hour labs (Repeat blood cultures negative) Quality Measures - VTE Contraindication to Pharmacological VTE Prophylaxis: Already on Theraputic Agent , No Prophylaxis Needed Specialty Discharge - Follow Up or Referrals Follow up with: Kari Garcia MD [Physician] - Shmuel Torres MD [Physician] - 03/01/17 9:00 am
[2017-02-24] MEDS: cefTRIAXone 2,000 MG in SODIUM CHLORIDE 0.9% 100 ML IV SCH (11:17)
[2017-02-24] MEDS: ENOXAPARIN 40 MG/0.4 ML SYRINGE SUBCUT SCH (13:34)
[2017-02-24] MEDS ORDERED: ALUMINUM/MAGNES/SIMETH MAX STR 30 ML UDCUP PO PRN (16:17)
[2017-02-25] MEDS: HYDROmorphone 2 MG/1 ML VIAL IV PRN ×5 (01:20→14:00)
[2017-02-25] MEDS: SODIUM CHLORIDE 0.9% 1,000 ML IV SCH (05:05)
[2017-02-25] MEDS: oxyCODONE/ACETAMINOPHEN 5-325 MG TABLET PO PRN ×2 (06:51→13:40)
[2017-02-25] MEDS: INSULIN GLARGINE 100 UNIT/ML SUBCUT SCH (08:13)
[2017-02-25] MEDS: INSULIN REGULAR 100 UNIT/ML SUBCUT SCH ×2 (08:14→12:05)
[2017-02-25] MEDS: INSULIN LISPRO 100 UNIT/ML SUBCUT SCH ×2 (08:14→13:14)
[2017-02-25] MEDS: PANTOPRAZOLE 40 MG TABLET PO SCH (08:15)
--- NOTE | 2017-02-25 11:04 | Infectious Disease Progress ---
Assessment and Plan (1) Abscess of forearm, left Status: Acute Assessment and plan: Status post I&D and she is receiving antibiotics. Symptomatically improved. We will continue dressing changes and antibiotics. Current Visit: Yes (2) Abscess of right arm Status: Acute Assessment and plan: Status post I&D and she is receiving antibiotics. No evidence of ongoing infection here. Current Visit: Yes (3) Epidural abscess Status: Acute Assessment and plan: Most likely due to the same streptococcal species that was isolated from her blood cultures. Recommendations: 1. Continue ceftriaxone 2 g daily. Last day of therapy will be March 31. 2. Appointment to see me in 1 week 3. Will consider PICC placement in outpatient setting once the abscesses heal Current Visit: Yes Infectious Disease - PN: Subj Interval history: Patient doing fairly okay. Only problem is the chronic mid back pain. No fever. Tolerating the ceftriaxone without vomiting or diarrhea. Had transient nausea last night. Infectious Disease Exam (PN) - Constitutional Vitals: Temp Pulse Resp BP Pulse Ox 96.9 F L 71 20 141/83 100 02/25/17 08:00 02/25/17 08:00 02/25/17 08:00 02/25/17 08:00 02/25/17 08:00 General appearance: over weight Exam: General appearance: no acute distress - Eye Eye exam: Present: EOMI. no icterus Pupils: Present: RONNA - ENT ENT exam: no oral exudates - Respiratory Respiratory exam: vesicular BS, no crepitations or wheezes - Cardiovascular Cardiovascular exam: regular rate and rhythm, no murmurs - GI/Abdominal GI/Abdominal exam: normal bowel sounds, soft, non-tender, no organomegaly or mass - Extremities Exam Extremities exam: no edema, wounds about both antecubital fossae noted packed, mild surrounding induration but no erythema, no pus - Skin Skin exam: no rash Results - Labs CBC & BMP: 02/22/17 08:02 02/23/17 05:34 Lab Results: I have reviewed the past 24 hour labs Quality Measures - VTE Contraindication to Pharmacological VTE Prophylaxis: Already on Theraputic Agent , No Prophylaxis Needed Specialty Discharge - Follow Up or Referrals Follow up with: Kari Garcia MD [Physician] - 03/03/17 11:15 am Shmuel Torres MD [Physician] - 03/01/17 9:00 am
[2017-02-25] MEDS: cefTRIAXone 2,000 MG in SODIUM CHLORIDE 0.9% 100 ML IV SCH (11:13)
--- NOTE | 2017-02-25 12:38 | Discharge Summary ---
<Jimbo Street - Last Filed: 02/25/17 15:16> Hospital Course - Hospital Course Hospital Course: Ms. Donovan is a 41-year-old morbidly obese white female patient with a history of hypertension, diabetes, PE, GI bleed, degenerative disc disease, fibromyalgia, anxiety, and depression that presented to the ED on 02/15 for evaluation of swelling to bilateral upper arms and lower back. Patient reports that the pain initially started about 5 weeks ago patient does have a history of chronic back pain and had a cyst removed years ago. Patient stated that the pain to her arm began on Tuesday and it was associated with redness and warmth. Patient denied any type of fever or chills. Patient does report a history of prescription drug abuse. 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 On assisting in the ED patient was found to have bilateral forearm with raised areas that were warm and radiated. At the time the patient was afebrile with no leukocytosis noted. Patient was treated empirically with vancomycin. Cultures were obtained. Patient was admitted to the hospitalist service for further evaluation and treatment. Surgery was consulted to assist in the care of the patient. On 02/17 the patient underwent a I&D to the abscesses to her bilateral antecubital fossa area. Patient tolerated well. Blood cultures were repeated on patient as the first set grew out positive for Streptococcus agalactiae. Arm culture showed Streptococcus dysgalactia. MRI of the lumbar thoracic spine were obtained to further evaluate patient's back pain. MRI showed epidural enhancement in the T8-T11 area. Infectious disease was later consulted to assist with the care of the patient. It was recommended that the patient be placed on ceftriaxone 2 g IV daily. Was also recommended that patient continue IV antibiotic therapy for 6 weeks with last days of therapy the March 31. Patient was set up with social sciences chair for home IV antibiotics. Inflammatory markers are to be monitored weekly to assess her response to therapy. Patient is stable to be discharged today. Patient is following up with Dr. Trimble on March 01 at 9 AM. Patient is also to see the infectious disease physician Dr. Charlton in 1 week Specialty Discharge - Follow Up or Referrals Follow up with: Kari Garcia MD [Physician] - 03/03/17 11:15 am Shmuel Torres MD [Physician] - 03/01/17 9:00 am Discharge Plan - Discharge Data Disposition: Disch To Home/Self Care - Discharge Medications New Cyclobenzaprine [Flexeril] 5 mg PO TID PRN #30 tablet PRN Reason: Muscle Pain cefTRIAXone [Rocephin] 2,000 mg IV Q24H #35 vial oxyCODONE/ACETAMINOPHEN 5-325 [Percocet 5-325] 1 tablet PO Q6H PRN #30 tablet PRN Reason: Pain Moderate (4-7) Continue Gabapentin 600 mg PO BID Levothyroxine Tab [Synthroid Tab] 88 mcg PO DAILY metFORMIN [Glucophage] 500 mg PO BID W/MEALS Insulin Detemir [Levemir FlexPen] 35 unit SUBCUT DAILY Discontinued Furosemide Tab [Lasix Tab] 10 mg PO DAILY PRN PRN Reason: fluid retention Warfarin [Coumadin] 2 mg PO DAILY@1800 - Follow Up or Referral Follow Up: Kari Garcia MD [Physician] - 03/03/17 11:15 am Shmuel Torres MD [Physician] - 03/01/17 9:00 am - Forms/Instructions Exam - Constitutional Vitals: Period Temp Pulse Resp BP Sys/Btetencourt Pulse Ox Last 24 Hr 96.9 F-97.8 F 71-90 18-20 112-147/55-83 94-100 Discharge Results Labs on day of discharge: Labs from last 24 hours 02/25/17 02/25/17 02/24/17 11:04 07:41 20:04 POC Glucose 210 H 112 H 169 H 02/24/17 16:07 POC Glucose 118 H DS: Provider Date of admission: 02/15/17 15:11 Primary care physician: . No PCP Attending physician on admission: Dillon Arambula MD Consults: 02/15/17 16:53 Consult to Pharmacy [CONS] Routine Reason for Pharmacy Consult: Dose/Manage Vancomycin 02/16/17 10:43 Consult to Physician [CONS] Routine Comment: antecubital fossa abscess Consulting Provider: Shmuel Torres Consult to Specialist Group: Surgery When should Consulting Provider be notified: Now Person Notified: william Date Notified: 02/16/17 Time Notified: 11:18 02/19/17 10:59 Consult to Physical Therapy [CONS] Routine Reason for Physical Therapy: Evaluate and Treat 02/21/17 20:13 Consult to Case Mgmt/Social Srvs [CONS] Routine Reason for Case Mgmt/Social Srvs: Other 02/22/17 10:10 Consult to Physician [CONS] Routine Comment: Streptococcal bacteremia with epidural changes Consulting Provider: Kari Garcia Consult to Specialist Group: Infectious Disease When should Consulting Provider be notified: Now Person Notified: REVONDA Date Notified: 02/22/17 Time Notified: 10:34 02/23/17 11:05 Consult to Case Mgmt/Social Srvs [CONS] Routine Reason for Case Mgmt/Social Srvs: Home IV Therapy Home Health Consult Comment: Ceftriaxone 2 g daily, last dose on March 31 2017, home health Discharging clinician: Jimbo Street NP <Dillon Arambula - Last Filed: 02/25/17 15:27> Hospital Course - Time spent with patient Time with patient DS: Greater than 30 minutes (40 minutes) Diagnosis - Discharge Diagnosis (1) Abscess of forearm, left Status: Resolved (2) Abscess of right arm Status: Resolved (3) Back pain Status: Resolved (4) Epidural abscess Status: Resolved (5) Bacteremia Status: Resolved Discharge Plan - Discharge Data Condition at Discharge: Stable Discharge Diet: advance to your usual diet Activity: increase activity as tolerated Hygiene: no restrictions Weight Bearing at Discharge: weight bear as tolerated Driving: no restrictions Contact your physician if you experience:: fever over 101 Exam - Constitutional General appearance: over weight - Head Head exam: Present: normocephalic, atraumatic - Eye Eye exam: Present: EOMI Pupils: Present: RONNA - ENT ENT exam: Present: normal exam - Neck Neck exam: Present: normal inspection - Respiratory Respiratory exam: Present: clear to auscultation bilaterally - Cardiovascular Cardiovascular exam: Present: regular rate and rhythm - GI/Abdominal GI/Abdominal exam: Present: normal bowel sounds, soft. Absent: tenderness, rebound - Extremities Exam Extremities exam: Present: normal inspection - Back Exam Back exam: Present: normal inspection - Neurological Exam Neurological exam: Present: alert, oriented X3 - Psychiatric Psychiatric exam: Present: normal affect, normal mood - Skin Skin exam: Present: warm, intact
[2017-02-25 13:19] VITALS: BP 145/63
[2017-02-25] MEDS: ENOXAPARIN 40 MG/0.4 ML SYRINGE SUBCUT SCH (15:59)
== END 2017-02-25 16:30 | disposition home health service (06) | DRG 49 ==
LOC: N.ED 11:12 → N.EDINP 15:11 → SUATTDRO 15:11 → N.2E 15:56
PROVIDERS: ADMIT Internal Medicine; ATTEND Internal Medicine

== ENCOUNTER 2017-08-05 23:05 | Inpatient (IN) ==
[2017-08-06] MEDS ORDERED: SODIUM CHLORIDE 0.9% 1,000 ML IV STA (02:26)
[2017-08-06] MEDS ORDERED: INSULIN REGULAR 100 UNIT/ML IV STA (02:27)
[2017-08-06] MEDS ORDERED: ONDANSETRON 4 MG/2 ML VIAL IM STA (02:31)
[2017-08-06] MEDS ORDERED: HYDROmorphone 2 MG/1 ML VIAL IV STA ×2 (02:31→04:00)
[2017-08-06] MEDS ORDERED: ONDANSETRON 4 MG/2 ML VIAL ONE (02:35)
[2017-08-06] MEDS ORDERED: HYDROmorphone 2 MG/1 ML VIAL ONE ×2 (02:35→08:11)
[2017-08-06] MEDS ORDERED: INSULIN REGULAR 100 UNIT/ML ONE (02:36)
[2017-08-06 02:39] LABS: Basophils # 0.1 10*3/uL (0.0-0.2); Basophils % 0.6 % (0.0-0.8); Eosinophils # 0.3 10*3/uL (0.0-0.87); Hematocrit 43.7 VOL% (35.7-47.0); Hemoglobin 14.7 GM/DL (12.0-16.0); Immature Granulocytes % 0.7 %; Immature Granulocytes Absolute 0.11 #; Lymphocytes # 1.7 10*3/uL (1.4-4.0); Lymphocytes % 10.5 % (21.3-54.2); Mean Corpuscular HGB Conc 33.6 GM/DL (32-36); Mean Corpuscular Hemoglobin 29 PG (27-34); Mean Corpuscular Volume 86.4 FL (87-102); Mean Platelet Volume 10.5 FL (9.6-12.0); Monocytes % 6.2 % (1.7-12.7); Neutrophils # 12.9 10*3/uL (1.4-7.4); Platelet Count 308 T/CUMM (130-400); Red Blood Count 5.06 MC/CUMM (3.8-5.5); Red Cell Distribution Width 14.3 % (9.3-17.3); White Blood Count 16.1 T/CUMM (4-12)
[2017-08-06 03:09] LABS: Calcium 8.6 MG/DL (8.5-10.1); Osmolality,Calculated 275.7 MOS/KG (273-304); Potassium 3.9 MMOL/L (3.5-5.1)
[2017-08-06] MEDS ORDERED: CLINDAMYCIN INJ 900 MG in PREMIX 1 EACH IV STA (03:54)
[2017-08-06] MEDS ORDERED: CLINDAMYCIN INJ 50 ML IV ONE ×2 (04:01→11:53)
[2017-08-06] MEDS ORDERED: DEXTROSE 50% 25 GM/50 ML VIAL IV PRN ×2 (05:19)
[2017-08-06] MEDS ORDERED: SODIUM CHLORIDE 0.9% 1,000 ML IV ONE (05:19)
[2017-08-06] MEDS ORDERED: POTASSIUM CHLORIDE RIDER 10 MEQ in PREMIX 1 EACH IV PRN (05:19)
[2017-08-06] MEDS ORDERED: MAGNESIUM SULF RIDER 2 GM in PREMIX 1 EACH IV PRN (05:19)
[2017-08-06] MEDS ORDERED: SODIUM PHOSPHATE INJ 30 MMOL in SODIUM CHLORIDE 0.9% 250 ML IV PRN (05:19)
[2017-08-06] MEDS ORDERED: SODIUM BICARB INJ 100 MEQ in STERILE WATER INJ 400 ML IV PRN (05:19)
[2017-08-06] MEDS ORDERED: INSULIN REGULAR 100 UNIT/ML IV ONE (05:19)
[2017-08-06] MEDS ORDERED: MAGNESIUM SULF RIDER 4 GM in PREMIX 1 EACH IV PRN (05:19)
[2017-08-06] MEDS ORDERED: INSULIN REGULAR DRIP 100 ML IV SCH (05:30)
[2017-08-06] MEDS ORDERED: INSULIN REGULAR DRIP 100 ML IV ONE (05:34)
[2017-08-06 06:22] LABS: Apearance,Urine Slightly Hazy (Clear); Bilirubin,Urine Negative (Negative); Blood, Urine Small mg/dL (Negative); Glucose,Urine (UA) >=500 mg/dL (Negative); Ketones,Urine 80 mg/dL (Negative); Mucus,Urine Occasional /LPF (Occasional); Nitrite,Urine Negative (Negative); Protein,Urine Negative; RBC,Urine 3 /HPF (0-4); Squamous Epithelial Cell,Urine Occasional /HPF (0-10); Urine Color Yellow (Yellow); Urine Urobilinogen < 2.0 EU/DL (0.2-1.0); WBC,Urine 4 /HPF (0-6)
[2017-08-06 06:23] LABS: ABG Base Excess -4.8 MMOL/L (-2.5-2.5); ABG HCO3 20.5 MMOL/L (20-26); ABG Oxygen Saturation 97.2 % (95-100); ABG PCO2 34.6 MM HG (35-48); ABG PH 7.366 (7.35-7.45); ABG PO2 88.4 MM HG (80-95); ABG TCO2 17.4 MMOL/L (23-27)
[2017-08-06] MEDS: HYDROmorphone 2 MG/1 ML VIAL IV PRN ×4 (08:14→20:12)
[2017-08-06 08:37] LABS: ABG Base Excess -1.6 MMOL/L (-2.5-2.5); ABG HCO3 23.1 MMOL/L (20-26); ABG Oxygen Saturation 96.7 % (95-100); ABG PCO2 35.6 MM HG (35-48); ABG PH 7.409 (7.35-7.45); ABG PO2 81.8 MM HG (80-95); ABG TCO2 19.8 MMOL/L (23-27)
[2017-08-06 08:41] LABS: Calcium 7.7 MG/DL (8.5-10.1); Magnesium 1.9 MG/DL (1.8-2.4); Osmolality,Calculated 268.8 MOS/KG (273-304); Phosphorous 1.9 MG/DL (2.5-4.9); Potassium 3.4 MMOL/L (3.5-5.1)
[2017-08-06] MEDS ORDERED: INSULIN NPH 100 UNIT/ML SUBCUT STA (10:31)
[2017-08-06] MEDS ORDERED: INSULIN NPH 100 UNIT/ML SUBCUT ONE (10:39)
[2017-08-06 10:52] LABS: ABG Base Excess -5.2 MMOL/L (-2.5-2.5); ABG HCO3 20.1 MMOL/L (20-26); ABG Oxygen Saturation 94.6 % (95-100); ABG PCO2 34.1 MM HG (35-48); ABG PH 7.363 (7.35-7.45); ABG PO2 70.7 MM HG (80-95)
[2017-08-06 10:57] LABS: Calcium 7.4 MG/DL (8.5-10.1); Osmolality,Calculated 272.8 MOS/KG (273-304); Potassium 3.6 MMOL/L (3.5-5.1)
[2017-08-06] MEDS: CLINDAMYCIN INJ 600 MG in PREMIX 1 EACH IV SCH ×2 (12:08→20:13)
[2017-08-06] MEDS: LEVOTHYROXINE 88 MCG TABLET PO SCH (14:58)
[2017-08-06] MEDS: NICOTINE 21 MG/24 HR PATCH TRANSDERM SCH (14:59)
[2017-08-06] MEDS: INSULIN NPH 100 UNIT/ML SUBCUT SCH (16:18)
[2017-08-06] MEDS: SULFAMETHOX/TRIMETHOPRIM 800-160 MG TABLET PO SCH (20:37)
[2017-08-06] MEDS ORDERED: SODIUM CHLORIDE 0.45% 1,000 ML IV SCH (22:19)
[2017-08-07] MEDS: HYDROmorphone 2 MG/1 ML VIAL IV PRN ×5 (00:23→22:46)
[2017-08-07] MEDS: CLINDAMYCIN INJ 600 MG in PREMIX 1 EACH IV SCH ×2 (03:56→12:27)
[2017-08-07 06:04] LABS: Basophils # 0.1 10*3/uL (0.0-0.2); Basophils % 0.5 % (0.0-0.8); Eosinophils # 0.3 10*3/uL (0.0-0.87); Eosinophils % 1.8 % (0.00-10.9); Hematocrit 36.8 VOL% (35.7-47.0); Hemoglobin 12.5 GM/DL (12.0-16.0); Immature Granulocytes Absolute 0.14 #; Lymphocytes # 2.4 10*3/uL (1.4-4.0); Lymphocytes % 16.8 % (21.3-54.2); Mean Corpuscular Hemoglobin 30 PG (27-34); Mean Corpuscular Volume 87.2 FL (87-102); Mean Platelet Volume 10.4 FL (9.6-12.0); Monocytes % 7.1 % (1.7-12.7); Neutrophils # 10.3 10*3/uL (1.4-7.4); Neutrophils % 72.8 % (38.7-73.9); Platelet Count 272 T/CUMM (130-400); Red Blood Count 4.22 MC/CUMM (3.8-5.5); Red Cell Distribution Width 14.3 % (9.3-17.3); White Blood Count 14.1 T/CUMM (4-12)
[2017-08-07 06:20] LABS: PT Patient Result 10.7 SECS
[2017-08-07] MEDS ORDERED: HYDROmorphone 2 MG/1 ML VIAL IV PRN (08:53)
[2017-08-07] MEDS ORDERED: ACETAMINOPHEN 325 MG TABLET PO PRN (08:53)
[2017-08-07] MEDS ORDERED: ONDANSETRON 4 MG/2 ML VIAL IV PRN (08:53)
[2017-08-07] MEDS ORDERED: SEVOFLURANE 1 UNIT/15 MINUTE INH ONE (10:08)
[2017-08-07] MEDS ORDERED: PROPOFOL 200 MG/20 ML VIAL IV ONE (10:08)
[2017-08-07] MEDS ORDERED: SODIUM CHLORIDE 0.9% 1,000 ML IV ONE (10:09)
[2017-08-07] MEDS ORDERED: fentaNYL 100 MCG/2 ML VIAL ONE (10:09)
[2017-08-07] MEDS ORDERED: ACETAMINOPHEN 1,000 MG/100 ML VIAL IV ONE (10:09)
[2017-08-07] MEDS ORDERED: MIDAZOLAM 2 MG/2 ML VIAL ONE (10:09)
[2017-08-07] MEDS ORDERED: ONDANSETRON 4 MG/2 ML VIAL ONE (10:09)
[2017-08-07] MEDS: SODIUM CHLORIDE 0.9% 1,000 ML IV SCH (10:28)
[2017-08-07] MEDS: SULFAMETHOX/TRIMETHOPRIM 800-160 MG TABLET PO SCH (10:28)
[2017-08-07] MEDS: LEVOTHYROXINE 88 MCG TABLET PO SCH (10:28)
[2017-08-07] MEDS: NICOTINE 21 MG/24 HR PATCH TRANSDERM SCH (10:28)
[2017-08-07] MEDS: INSULIN NPH 100 UNIT/ML SUBCUT SCH ×2 (10:29→16:36)
[2017-08-07] MEDS: PANTOPRAZOLE 40 MG TABLET PO SCH (10:32)
[2017-08-07] MEDS: INSULIN REGULAR 100 UNIT/ML SUBCUT SCH ×3 (12:26→21:26)
[2017-08-07 12:55] LABS: Hematocrit 36.3 VOL% (35.7-47.0); Hemoglobin 11.9 GM/DL (12.0-16.0)
[2017-08-07] MEDS ORDERED: VANCOMYCIN INJ 1,000 MG in SODIUM CHLORIDE 0.9% 250 ML IV SCH (17:00)
[2017-08-07] MEDS: AZTREONAM 1,000 MG in SYRINGE 1 EACH IV SCH (17:55)
[2017-08-07] MEDS: VANCOMYCIN INJ 1,750 MG in SODIUM CHLORIDE 0.9% 500 ML IV SCH (18:01)
[2017-08-07] MEDS: metroNIDAZOLE 500 MG TABLET PO SCH (21:26)
[2017-08-08] MEDS: AZTREONAM 1,000 MG in SYRINGE 1 EACH IV SCH ×3 (00:45→16:18)
[2017-08-08] MEDS: VANCOMYCIN INJ 1,750 MG in SODIUM CHLORIDE 0.9% 500 ML IV SCH ×3 (02:02→21:41)
[2017-08-08] MEDS: SODIUM CHLORIDE 0.9% 1,000 ML IV SCH ×3 (05:30→17:03)
[2017-08-08] MEDS: metroNIDAZOLE 500 MG TABLET PO SCH ×3 (05:51→21:41)
[2017-08-08] MEDS: HYDROmorphone 2 MG/1 ML VIAL IV PRN ×5 (06:13→21:52)
[2017-08-08 06:22] LABS: Basophils % 0.6 % (0.0-0.8); Eosinophils # 0.2 10*3/uL (0.0-0.87); Eosinophils % 3.1 % (0.00-10.9); Hemoglobin 11.3 GM/DL (12.0-16.0); Immature Granulocytes % 1.3 %; Immature Granulocytes Absolute 0.09 #; Lymphocytes # 1.2 10*3/uL (1.4-4.0); Lymphocytes % 17.3 % (21.3-54.2); Mean Corpuscular HGB Conc 33.2 GM/DL (32-36); Mean Corpuscular Hemoglobin 29 PG (27-34); Mean Corpuscular Volume 88.5 FL (87-102); Monocytes # 0.4 10*3/uL (0.11-0.8); Monocytes % 5.3 % (1.7-12.7); Neutrophils # 4.9 10*3/uL (1.4-7.4); Neutrophils % 72.4 % (38.7-73.9); Platelet Count 225 T/CUMM (130-400); Red Blood Count 3.84 MC/CUMM (3.8-5.5); Red Cell Distribution Width 14.2 % (9.3-17.3); White Blood Count 6.8 T/CUMM (4-12)
[2017-08-08 06:42] LABS: Hypochromasia 1+; Microcytosis Slight
[2017-08-08 06:57] LABS: Calcium 7.1 MG/DL (8.5-10.1); Osmolality,Calculated 276.1 MOS/KG (273-304); Potassium 3.7 MMOL/L (3.5-5.1)
[2017-08-08] MEDS: LEVOTHYROXINE 88 MCG TABLET PO SCH (08:22)
[2017-08-08] MEDS: INSULIN NPH 100 UNIT/ML SUBCUT SCH ×2 (08:22→16:20)
[2017-08-08] MEDS: PANTOPRAZOLE 40 MG TABLET PO SCH (08:22)
[2017-08-08] MEDS: INSULIN REGULAR 100 UNIT/ML SUBCUT SCH ×4 (08:22→21:41)
[2017-08-08] MEDS: NICOTINE 21 MG/24 HR PATCH TRANSDERM SCH (08:23)
[2017-08-08] MEDS: SODIUM HYPOCHLORITE 0.25% IRRIG 473 ML BOTTLE TOP SCH (09:55)
[2017-08-09] MEDS: AZTREONAM 1,000 MG in SYRINGE 1 EACH IV SCH ×2 (03:28→08:40)
[2017-08-09] MEDS: VANCOMYCIN INJ 1,750 MG in SODIUM CHLORIDE 0.9% 500 ML IV SCH ×3 (04:43→19:48)
[2017-08-09] MEDS: HYDROmorphone 2 MG/1 ML VIAL IV PRN ×5 (04:43→20:53)
[2017-08-09] MEDS: metroNIDAZOLE 500 MG TABLET PO SCH ×2 (05:53→15:34)
[2017-08-09] MEDS: SODIUM CHLORIDE 0.9% 1,000 ML IV SCH ×2 (05:57→16:45)
[2017-08-09 06:00] LABS: Basophils # 0.1 10*3/uL (0.0-0.2); Eosinophils # 0.2 10*3/uL (0.0-0.87); Eosinophils % 4.7 % (0.00-10.9); Hematocrit 34.2 VOL% (35.7-47.0); Hemoglobin 11.2 GM/DL (12.0-16.0); Immature Granulocytes % 1.8 %; Immature Granulocytes Absolute 0.09 #; Lymphocytes # 1.2 10*3/uL (1.4-4.0); Lymphocytes % 23.6 % (21.3-54.2); Mean Corpuscular HGB Conc 32.7 GM/DL (32-36); Mean Corpuscular Hemoglobin 29 PG (27-34); Mean Corpuscular Volume 88.8 FL (87-102); Mean Platelet Volume 10.2 FL (9.6-12.0); Monocytes # 0.4 10*3/uL (0.11-0.8); Monocytes % 8.6 % (1.7-12.7); Neutrophils # 3.1 10*3/uL (1.4-7.4); Neutrophils % 60.3 % (38.7-73.9); Platelet Count 254 T/CUMM (130-400); Red Blood Count 3.85 MC/CUMM (3.8-5.5); Red Cell Distribution Width 14.3 % (9.3-17.3); White Blood Count 5.1 T/CUMM (4-12)
[2017-08-09 06:24] LABS: Calcium 7.7 MG/DL (8.5-10.1); Magnesium 1.9 MG/DL (1.8-2.4); Osmolality,Calculated 285.4 MOS/KG (273-304); Potassium 3.8 MMOL/L (3.5-5.1)
[2017-08-09] MEDS: INSULIN REGULAR 100 UNIT/ML SUBCUT SCH ×4 (08:41→20:53)
[2017-08-09] MEDS: NICOTINE 21 MG/24 HR PATCH TRANSDERM SCH (08:41)
[2017-08-09] MEDS: INSULIN NPH 100 UNIT/ML SUBCUT SCH ×2 (08:41→16:38)
[2017-08-09] MEDS: LEVOTHYROXINE 88 MCG TABLET PO SCH (08:42)
[2017-08-09] MEDS: SODIUM HYPOCHLORITE 0.25% IRRIG 473 ML BOTTLE TOP SCH (08:42)
[2017-08-09] MEDS: PANTOPRAZOLE 40 MG TABLET PO SCH (08:42)
[2017-08-10] MEDS: HYDROmorphone 2 MG/1 ML VIAL IV PRN ×3 (01:00→09:13)
[2017-08-10] MEDS: VANCOMYCIN INJ 1,750 MG in SODIUM CHLORIDE 0.9% 500 ML IV SCH (04:32)
[2017-08-10 06:00] LABS: Basophils # 0.1 10*3/uL (0.0-0.2); Eosinophils # 0.4 10*3/uL (0.0-0.87); Eosinophils % 6.5 % (0.00-10.9); Hematocrit 33.9 VOL% (35.7-47.0); Hemoglobin 11.1 GM/DL (12.0-16.0); Immature Granulocytes % 2.1 %; Immature Granulocytes Absolute 0.12 #; Lymphocytes # 2.4 10*3/uL (1.4-4.0); Lymphocytes % 41.9 % (21.3-54.2); Mean Corpuscular HGB Conc 32.7 GM/DL (32-36); Mean Corpuscular Hemoglobin 29 PG (27-34); Mean Platelet Volume 9.8 FL (9.6-12.0); Monocytes # 0.6 10*3/uL (0.11-0.8); Monocytes % 9.9 % (1.7-12.7); Neutrophils # 2.3 10*3/uL (1.4-7.4); Neutrophils % 38.6 % (38.7-73.9); Platelet Count 278 T/CUMM (130-400); Red Blood Count 3.81 MC/CUMM (3.8-5.5); Red Cell Distribution Width 14.3 % (9.3-17.3); White Blood Count 5.8 T/CUMM (4-12)
[2017-08-10 06:27] LABS: Band Neutrophils 1 % (0-10); Eosinophils 3 % (0-10); Giant Platelets Few; Hypochromasia 1+; Lymphocytes 52 % (20-55); Microcytosis Slight; Ovalocytes Slight; Platelet Estimate Adequate; Segmented Neutrophils 36 % (50-85); Total Cells Counted 100
[2017-08-10 06:43] LABS: Calcium 7.9 MG/DL (8.5-10.1); Magnesium 1.9 MG/DL (1.8-2.4); Osmolality,Calculated 278.5 MOS/KG (273-304); Potassium 3.8 MMOL/L (3.5-5.1)
[2017-08-10] MEDS: INSULIN NPH 100 UNIT/ML SUBCUT SCH (08:15)
[2017-08-10] MEDS: INSULIN REGULAR 100 UNIT/ML SUBCUT SCH ×2 (08:16→11:50)
[2017-08-10] MEDS: SODIUM HYPOCHLORITE 0.25% IRRIG 473 ML BOTTLE TOP SCH (09:00)
[2017-08-10] MEDS: NICOTINE 21 MG/24 HR PATCH TRANSDERM SCH (10:15)
[2017-08-10] MEDS: PANTOPRAZOLE 40 MG TABLET PO SCH (10:15)
[2017-08-10] MEDS: LEVOTHYROXINE 88 MCG TABLET PO SCH (10:15)
[2017-08-10] MEDS: TUBERCULIN SKIN TEST 0.1 ML SYRINGE INTRADERM ONE ×2 (10:32→10:39)
[2017-08-10 12:24] VITALS: BP 145/69
[2017-08-10] MEDS ORDERED: SULFAMETHOX/TRIMETHOPRIM 800-160 MG TABLET PO SCH (21:00)
== END 2017-08-10 11:48 | DRG 344 ==
LOC: N.ED 23:05 → N.EDINP 08-06 03:59 → SUATTDRO 08-06 03:59 → N.EDINP 08-06 14:10 → N.2E 08-06 14:24
PROVIDERS: ADMIT Internal Medicine Infectious Disease; ATTEND Internal Medicine

== ENCOUNTER 2020-03-25 21:56 | Inpatient (IN) ==
[2020-03-25] MEDS ORDERED: HYDROmorphone 2 MG/1 ML VIAL IV STA (23:21)
[2020-03-25] MEDS ORDERED: ONDANSETRON 4 MG/2 ML VIAL IV STA (23:21)
[2020-03-25] MEDS ORDERED: SODIUM CHLORIDE 0.9% 1,000 ML IV STA (23:21)
[2020-03-25] MEDS ORDERED: INSULIN REGULAR 100 UNIT/ML SUBCUT STA (23:28)
[2020-03-25 23:31] LABS: Basophils # 0.1 10*3/uL (0.0-0.2); Basophils % 0.6 % (0.0-0.8); Hematocrit 42.7 VOL% (35.7-47.0); Hemoglobin 14.1 GM/DL (12.0-16.0); Immature Granulocytes % 0.9 %; Immature Granulocytes Absolute 0.15 #; Lymphocytes # 0.7 10*3/uL (1.4-4.0); Lymphocytes % 4.3 % (21.3-54.2); Mean Corpuscular Volume 90.7 FL (87-102); Mean Platelet Volume 10.3 FL (9.6-12.0); Monocytes % 4.9 % (1.7-12.7); Neutrophils % 89.3 % (38.7-73.9); Platelet Count 353 T/CUMM (130-400); Red Blood Count 4.71 MC/CUMM (3.8-5.5); White Blood Count 17.1 T/CUMM (4-12)
[2020-03-25 23:48] LABS: Alanine Aminotransferase 21 U/L (13-56); Albumin 2.6 G/DL (3.4-5.0); Alkaline Phosphatase 175 U/L (45-117); Amylase 12 U/L (25-115); Aspartate Amino Transferase 28 U/L (0-37); Blood Urea Nitrogen 10 MG/DL (7-18); Calcium 8.1 MG/DL (8.5-10.1); Estimated Glom Filtration Rate 62 ML/MIN; Osmolality,Calculated 280.1 MOS/KG (273-304); Total Protein 6.6 G/DL (6.4-8.3)
[2020-03-25 23:52] LABS: Glucose 547 MG/DL (74-106)
[2020-03-26] MEDS ORDERED: MAGNESIUM SULF RIDER 2 GM in PREMIX 1 EACH IV STA (00:01)
[2020-03-26] MEDS ORDERED: DOXYCYCLINE HYCLATE INJ 100 MG in SODIUM CHLORIDE 0.9% 100 ML IV STA (00:37)
[2020-03-26 01:30] LABS: Apearance,Urine CLEAR (Clear); Bilirubin,Urine Negative (Negative); Blood, Urine Small mg/dL (Negative); Glucose,Urine (UA) >=500 mg/dL (Negative); Ketones,Urine 5 mg/dL (Negative); Mucus,Urine Occasional /LPF (Occasional); Nitrite,Urine Negative (Negative); Protein,Urine Negative; RBC,Urine 14 /HPF (0-4); Squamous Epithelial Cell,Urine Occasional /HPF (0-10); Urine Color Yellow (Yellow); Urine Specific Gravity > 1.060 (1.001-1.035); Urine Urobilinogen < 2.0 EU/DL (0.2-1.0); WBC,Urine 195 /HPF (0-6)
[2020-03-26] MEDS ORDERED: INSULIN REGULAR 100 UNIT/ML IV STA (01:54)
[2020-03-26] MEDS ORDERED: SODIUM CHLORIDE 0.9% 1,000 ML IV STA (01:56)
[2020-03-26] MEDS ORDERED: DEXTROSE 50% 25 GM/50 ML VIAL IV PRN ×2 (02:31→02:50)
[2020-03-26] MEDS ORDERED: GLUCAGON 1 MG VIAL IM PRN ×2 (02:31→02:50)
[2020-03-26] MEDS ORDERED: ONDANSETRON 4 MG/2 ML VIAL IV PRN (02:31)
[2020-03-26] MEDS: HYDROmorphone 2 MG/1 ML VIAL IV PRN ×4 (04:26→20:55)
[2020-03-26] MEDS: SODIUM CHLORIDE 0.9% 1,000 ML IV SCH ×3 (04:26→20:49)
[2020-03-26 04:44] LABS: Lymphocytes 8 % (20-55); Segmented Neutrophils 91 % (50-85); Total Cells Counted 100
[2020-03-26 04:45] LABS: Anisocytosis 1+; Platelet Estimate Normal
[2020-03-26 05:54] LABS: Basophils % 0.3 % (0.0-0.8); Hematocrit 39.3 VOL% (35.7-47.0); Hemoglobin 12.7 GM/DL (12.0-16.0); Immature Granulocytes % 1.1 %; Immature Granulocytes Absolute 0.15 #; Lymphocytes % 7.2 % (21.3-54.2); Mean Corpuscular HGB Conc 32.3 GM/DL (32-36); Mean Corpuscular Volume 90.3 FL (87-102); Mean Platelet Volume 10.4 FL (9.6-12.0); Neutrophils % 84.4 % (38.7-73.9); Platelet Count 287 T/CUMM (130-400); Red Blood Count 4.35 MC/CUMM (3.8-5.5); Red Cell Distribution Width 13.1 % (9.3-17.3); White Blood Count 14.1 T/CUMM (4-12)
[2020-03-26 06:17] LABS: Hypochromasia 1+; Lymphocytes 8 % (20-55); Segmented Neutrophils 89 % (50-85); Total Cells Counted 100
[2020-03-26 06:18] LABS: Microcytosis Slight; Platelet Estimate Normal
[2020-03-26 06:42] LABS: Calcium 7.9 MG/DL (8.5-10.1); Osmolality,Calculated 265.5 MOS/KG (273-304)
[2020-03-26] MEDS: ERTAPENEM 1,000 MG in SODIUM CHLORIDE 0.9% 100 ML IV SCH (08:02)
[2020-03-26] MEDS: LEVOTHYROXINE 25 MCG TABLET PO SCH (09:04)
[2020-03-26] MEDS: INSULIN GLARGINE 100 UNIT/ML SUBCUT SCH ×2 (09:04→20:50)
[2020-03-26] MEDS: INSULIN LISPRO 100 UNIT/ML SUBCUT SCH ×2 (09:04→16:10)
[2020-03-26] MEDS: PANTOPRAZOLE 40 MG TABLET PO SCH (09:04)
[2020-03-26] MEDS: INSULIN REGULAR 100 UNIT/ML SUBCUT SCH ×4 (09:05→20:50)
[2020-03-26] MEDS: oxyCODONE/ACETAMINOPHEN 5-325 MG TABLET PO PRN ×2 (12:34→17:42)
[2020-03-26 12:43] LABS: Basophils % 0.2 % (0.0-0.8); Eosinophils % 0.2 % (0.00-10.9); Hematocrit 33.8 VOL% (35.7-47.0); Hemoglobin 11.1 GM/DL (12.0-16.0); Immature Granulocytes % 0.9 %; Immature Granulocytes Absolute 0.11 #; Lymphocytes % 15.6 % (21.3-54.2); Mean Corpuscular HGB Conc 32.8 GM/DL (32-36); Mean Corpuscular Volume 89.7 FL (87-102); Mean Platelet Volume 9.7 FL (9.6-12.0); Neutrophils % 76.1 % (38.7-73.9); Platelet Count 267 T/CUMM (130-400); Red Blood Count 3.77 MC/CUMM (3.8-5.5); Red Cell Distribution Width 13.2 % (9.3-17.3); White Blood Count 12.7 T/CUMM (4-12)
[2020-03-26 19:14] LABS: Basophils % 0.2 % (0.0-0.8); Eosinophils # 0.1 10*3/uL (0.0-0.87); Eosinophils % 0.5 % (0.00-10.9); Hematocrit 30.9 VOL% (35.7-47.0); Hemoglobin 10.4 GM/DL (12.0-16.0); Immature Granulocytes % 0.7 %; Immature Granulocytes Absolute 0.09 #; Lymphocytes # 2.4 10*3/uL (1.4-4.0); Lymphocytes % 18.7 % (21.3-54.2); Mean Corpuscular HGB Conc 33.7 GM/DL (32-36); Mean Corpuscular Volume 88.5 FL (87-102); Mean Platelet Volume 9.8 FL (9.6-12.0); Monocytes % 6.9 % (1.7-12.7); Platelet Count 227 T/CUMM (130-400); Red Blood Count 3.49 MC/CUMM (3.8-5.5); Red Cell Distribution Width 13.2 % (9.3-17.3); White Blood Count 12.8 T/CUMM (4-12)
[2020-03-27] MEDS: SODIUM CHLORIDE 0.9% 1,000 ML IV SCH ×4 (00:02→21:21)
[2020-03-27] MEDS: oxyCODONE/ACETAMINOPHEN 5-325 MG TABLET PO PRN ×4 (00:05→17:53)
[2020-03-27] MEDS: HYDROmorphone 2 MG/1 ML VIAL IV PRN ×4 (02:36→21:22)
[2020-03-27 05:10] LABS: Basophils # 0.1 10*3/uL (0.0-0.2); Basophils % 0.4 % (0.0-0.8); Eosinophils # 0.1 10*3/uL (0.0-0.87); Eosinophils % 1.1 % (0.00-10.9); Hematocrit 32.1 VOL% (35.7-47.0); Hemoglobin 10.6 GM/DL (12.0-16.0); Immature Granulocytes Absolute 0.12 #; Lymphocytes # 2.2 10*3/uL (1.4-4.0); Lymphocytes % 19.1 % (21.3-54.2); Mean Corpuscular Volume 89.9 FL (87-102); Monocytes % 6.3 % (1.7-12.7); Neutrophils % 72.1 % (38.7-73.9); Platelet Count 253 T/CUMM (130-400); Red Blood Count 3.57 MC/CUMM (3.8-5.5); Red Cell Distribution Width 13.2 % (9.3-17.3); White Blood Count 11.5 T/CUMM (4-12)
[2020-03-27 05:45] LABS: Osmolality,Calculated 270.7 MOS/KG (273-304)
[2020-03-27] MEDS: ERTAPENEM 1,000 MG in SODIUM CHLORIDE 0.9% 100 ML IV SCH (06:05)
[2020-03-27] MEDS ORDERED: VANCOMYCIN INJ 1,000 MG in SODIUM CHLORIDE 0.9% 250 ML IV SCH (08:00)
[2020-03-27] MEDS: LEVOTHYROXINE 25 MCG TABLET PO SCH (08:54)
[2020-03-27] MEDS: PANTOPRAZOLE 40 MG TABLET PO SCH (08:54)
[2020-03-27] MEDS: INSULIN GLARGINE 100 UNIT/ML SUBCUT SCH ×2 (08:55→21:22)
[2020-03-27] MEDS: VANCOMYCIN INJ 2,000 MG in SODIUM CHLORIDE 0.9% 500 ML IV SCH ×2 (08:56→21:22)
[2020-03-27] MEDS: INSULIN LISPRO 100 UNIT/ML SUBCUT SCH ×2 (08:56→16:24)
[2020-03-27] MEDS: INSULIN REGULAR 100 UNIT/ML SUBCUT SCH ×4 (08:56→21:22)
[2020-03-27] MEDS: NICOTINE 21 MG/24 HR PATCH TRANSDERM PRN (17:53)
[2020-03-28] MEDS: HYDROmorphone 2 MG/1 ML VIAL IV PRN ×5 (02:28→23:31)
[2020-03-28] MEDS: SODIUM CHLORIDE 0.9% 1,000 ML IV SCH ×3 (04:02→16:38)
[2020-03-28] MEDS: oxyCODONE/ACETAMINOPHEN 5-325 MG TABLET PO PRN (05:40)
[2020-03-28] MEDS: ERTAPENEM 1,000 MG in SODIUM CHLORIDE 0.9% 100 ML IV SCH (06:09)
[2020-03-28 06:58] LABS: Basophils # 0.1 10*3/uL (0.0-0.2); Basophils % 0.7 % (0.0-0.8); Eosinophils # 0.3 10*3/uL (0.0-0.87); Eosinophils % 2.9 % (0.00-10.9); Hematocrit 30.9 VOL% (35.7-47.0); Hemoglobin 9.8 GM/DL (12.0-16.0); Immature Granulocytes % 0.9 %; Immature Granulocytes Absolute 0.09 #; Lymphocytes # 2.4 10*3/uL (1.4-4.0); Lymphocytes % 24.3 % (21.3-54.2); Mean Corpuscular HGB Conc 31.7 GM/DL (32-36); Mean Corpuscular Volume 92.2 FL (87-102); Mean Platelet Volume 9.8 FL (9.6-12.0); Monocytes % 6.8 % (1.7-12.7); Neutrophils % 64.4 % (38.7-73.9); Platelet Count 291 T/CUMM (130-400); Red Blood Count 3.35 MC/CUMM (3.8-5.5); Red Cell Distribution Width 13.2 % (9.3-17.3)
[2020-03-28 07:31] LABS: Calcium 7.8 MG/DL (8.5-10.1); Osmolality,Calculated 273.2 MOS/KG (273-304)
[2020-03-28] MEDS: INSULIN LISPRO 100 UNIT/ML SUBCUT SCH ×2 (09:05→17:03)
[2020-03-28] MEDS: INSULIN REGULAR 100 UNIT/ML SUBCUT SCH ×4 (09:06→21:11)
[2020-03-28] MEDS: PANTOPRAZOLE 40 MG TABLET PO SCH (09:07)
[2020-03-28] MEDS: LEVOTHYROXINE 25 MCG TABLET PO SCH (09:07)
[2020-03-28] MEDS: VANCOMYCIN INJ 2,000 MG in SODIUM CHLORIDE 0.9% 500 ML IV SCH ×2 (09:07→21:16)
[2020-03-28] MEDS: INSULIN GLARGINE 100 UNIT/ML SUBCUT SCH ×2 (09:07→21:12)
[2020-03-28] MEDS ORDERED: oxyCODONE/ACETAMINOPHEN 5-325 MG TABLET PO PRN (09:34)
[2020-03-28] MEDS ORDERED: ACETAMINOPHEN 325 MG TABLET PO PRN (09:34)
[2020-03-28] MEDS: NICOTINE 21 MG/24 HR PATCH TRANSDERM PRN (17:08)
[2020-03-29 05:58] LABS: Basophils # 0.1 10*3/uL (0.0-0.2); Basophils % 0.7 % (0.0-0.8); Eosinophils # 0.3 10*3/uL (0.0-0.87); Eosinophils % 3.9 % (0.00-10.9); Hematocrit 32.1 VOL% (35.7-47.0); Hemoglobin 10.5 GM/DL (12.0-16.0); Immature Granulocytes % 0.9 %; Immature Granulocytes Absolute 0.07 #; Lymphocytes # 1.9 10*3/uL (1.4-4.0); Lymphocytes % 23.4 % (21.3-54.2); Mean Corpuscular HGB Conc 32.7 GM/DL (32-36); Mean Corpuscular Volume 90.2 FL (87-102); Mean Platelet Volume 9.2 FL (9.6-12.0); Monocytes % 7.3 % (1.7-12.7); Neutrophils % 63.8 % (38.7-73.9); Platelet Count 292 T/CUMM (130-400); Red Blood Count 3.56 MC/CUMM (3.8-5.5); Red Cell Distribution Width 13.1 % (9.3-17.3); White Blood Count 8.2 T/CUMM (4-12)
[2020-03-29] MEDS: ERTAPENEM 1,000 MG in SODIUM CHLORIDE 0.9% 100 ML IV SCH (06:12)
[2020-03-29] MEDS: HYDROmorphone 2 MG/1 ML VIAL IV PRN ×3 (06:13→18:10)
[2020-03-29 06:17] LABS: Calcium 8.1 MG/DL (8.5-10.1); Osmolality,Calculated 273.5 MOS/KG (273-304)
[2020-03-29] MEDS: INSULIN LISPRO 100 UNIT/ML SUBCUT SCH ×2 (09:44→16:58)
[2020-03-29] MEDS: INSULIN GLARGINE 100 UNIT/ML SUBCUT SCH ×2 (09:45→21:48)
[2020-03-29] MEDS: LEVOTHYROXINE 25 MCG TABLET PO SCH (09:45)
[2020-03-29] MEDS: PANTOPRAZOLE 40 MG TABLET PO SCH (09:45)
[2020-03-29] MEDS: POTASSIUM CHLORIDE 20 MEQ TABLET PO PRN ×3 (09:45→16:58)
[2020-03-29] MEDS: VANCOMYCIN INJ 2,000 MG in SODIUM CHLORIDE 0.9% 500 ML IV SCH ×2 (09:45→21:47)
[2020-03-29] MEDS: busPIRone 15 MG TABLET PO SCH (09:45)
[2020-03-29] MEDS: NICOTINE 21 MG/24 HR PATCH TRANSDERM SCH (09:46)
[2020-03-29] MEDS: INSULIN REGULAR 100 UNIT/ML SUBCUT SCH ×4 (10:33→21:00)
[2020-03-29] MEDS: NICOTINE 21 MG/24 HR PATCH TRANSDERM PRN (16:58)
[2020-03-29] MEDS: SODIUM CHLORIDE 0.9% 1,000 ML IV SCH (21:48)
[2020-03-30] MEDS: SODIUM CHLORIDE 0.9% 1,000 ML IV SCH ×2 (00:56→17:09)
[2020-03-30] MEDS: HYDROmorphone 2 MG/1 ML VIAL IV PRN ×4 (00:57→21:55)
[2020-03-30] MEDS: ERTAPENEM 1,000 MG in SODIUM CHLORIDE 0.9% 100 ML IV SCH (07:03)
[2020-03-30 07:04] LABS: Basophils % 0.5 % (0.0-0.8); Eosinophils # 0.4 10*3/uL (0.0-0.87); Eosinophils % 4.6 % (0.00-10.9); Hematocrit 31.6 VOL% (35.7-47.0); Hemoglobin 10.1 GM/DL (12.0-16.0); Immature Granulocytes % 1.4 %; Immature Granulocytes Absolute 0.12 #; Lymphocytes # 2.5 10*3/uL (1.4-4.0); Lymphocytes % 29.3 % (21.3-54.2); Mean Corpuscular Volume 91.6 FL (87-102); Mean Platelet Volume 9.3 FL (9.6-12.0); Monocytes % 6.8 % (1.7-12.7); Neutrophils % 57.4 % (38.7-73.9); Platelet Count 356 T/CUMM (130-400); Red Blood Count 3.45 MC/CUMM (3.8-5.5); Red Cell Distribution Width 13.3 % (9.3-17.3); White Blood Count 8.6 T/CUMM (4-12)
[2020-03-30 07:42] LABS: Calcium 8.1 MG/DL (8.5-10.1); Osmolality,Calculated 276.3 MOS/KG (273-304)
[2020-03-30] MEDS: VANCOMYCIN INJ 2,000 MG in SODIUM CHLORIDE 0.9% 500 ML IV SCH ×2 (09:00→21:57)
[2020-03-30] MEDS: INSULIN GLARGINE 100 UNIT/ML SUBCUT SCH ×2 (09:00→21:56)
[2020-03-30] MEDS: busPIRone 15 MG TABLET PO SCH (09:00)
[2020-03-30] MEDS: PANTOPRAZOLE 40 MG TABLET PO SCH (09:00)
[2020-03-30] MEDS: LEVOTHYROXINE 25 MCG TABLET PO SCH (09:00)
[2020-03-30] MEDS: INSULIN REGULAR 100 UNIT/ML SUBCUT SCH ×3 (10:09→17:10)
[2020-03-30] MEDS: NICOTINE 21 MG/24 HR PATCH TRANSDERM SCH (10:12)
[2020-03-30] MEDS: INSULIN LISPRO 100 UNIT/ML SUBCUT SCH ×2 (10:12→17:10)
[2020-03-30] MEDS: NICOTINE 21 MG/24 HR PATCH TRANSDERM PRN (17:10)
[2020-03-31] MEDS: INSULIN REGULAR 100 UNIT/ML SUBCUT SCH ×3 (00:35→11:44)
[2020-03-31] MEDS: HYDROmorphone 2 MG/1 ML VIAL IV PRN ×2 (04:02→09:10)
[2020-03-31 05:53] LABS: Basophils # 0.1 10*3/uL (0.0-0.2); Basophils % 0.6 % (0.0-0.8); Eosinophils # 0.4 10*3/uL (0.0-0.87); Eosinophils % 4.3 % (0.00-10.9); Hematocrit 34.8 VOL% (35.7-47.0); Hemoglobin 11.1 GM/DL (12.0-16.0); Immature Granulocytes % 0.8 %; Immature Granulocytes Absolute 0.07 #; Lymphocytes # 2.4 10*3/uL (1.4-4.0); Lymphocytes % 27.8 % (21.3-54.2); Mean Corpuscular HGB Conc 31.9 GM/DL (32-36); Mean Corpuscular Volume 89.9 FL (87-102); Mean Platelet Volume 9.2 FL (9.6-12.0); Monocytes % 7.2 % (1.7-12.7); Neutrophils % 59.3 % (38.7-73.9); Platelet Count 376 T/CUMM (130-400); Red Blood Count 3.87 MC/CUMM (3.8-5.5); Red Cell Distribution Width 13.2 % (9.3-17.3); White Blood Count 8.6 T/CUMM (4-12)
[2020-03-31 06:17] LABS: Calcium 8.3 MG/DL (8.5-10.1); Osmolality,Calculated 272.8 MOS/KG (273-304)
[2020-03-31] MEDS: LEVOTHYROXINE 25 MCG TABLET PO SCH (08:13)
[2020-03-31] MEDS: NICOTINE 21 MG/24 HR PATCH TRANSDERM SCH (08:13)
[2020-03-31] MEDS: INSULIN GLARGINE 100 UNIT/ML SUBCUT SCH (08:13)
[2020-03-31] MEDS: busPIRone 15 MG TABLET PO SCH (08:13)
[2020-03-31] MEDS: PANTOPRAZOLE 40 MG TABLET PO SCH (08:13)
[2020-03-31] MEDS: INSULIN LISPRO 100 UNIT/ML SUBCUT SCH (08:14)
[2020-03-31] MEDS: VANCOMYCIN INJ 2,000 MG in SODIUM CHLORIDE 0.9% 500 ML IV SCH (08:18)
[2020-03-31] MEDS: SODIUM CHLORIDE 0.9% 1,000 ML IV SCH (08:22)
[2020-03-31] MEDS ORDERED: FLUCONAZOLE 200 MG TABLET PO SCH (10:44)
[2020-03-31 11:25] VITALS: BP 102/56
== END 2020-03-31 14:20 | disposition home or self-care (01) | DRG 463 ==
LOC: EDUNIT# → EDBD → N.ED 21:56 → N.EDINP 03-26 02:31 → N.TELEN 03-26 03:35
PROVIDERS: ADMIT Internal Medicine; ATTEND Internal Medicine

== ENCOUNTER 2020-05-02 21:25 | Inpatient (IN) ==
[2020-05-02] MEDS ORDERED: VANCOMYCIN INJ 1,000 MG in SODIUM CHLORIDE 0.9% 250 ML IV STA (21:58)
[2020-05-02 22:20] LABS: Apearance,Urine CLEAR (Clear); Bilirubin,Urine Negative (Negative); Blood, Urine Negative (Negative); Glucose,Urine (UA) >=500 mg/dL (Negative); Ketones,Urine 20 mg/dL (Negative); Mucus,Urine Occasional /LPF (Occasional); Nitrite,Urine Negative (Negative); Protein,Urine Negative; RBC,Urine 4 /HPF (0-4); Squamous Epithelial Cell,Urine Occasional /HPF (0-10); Urine Color Yellow (Yellow); Urine Specific Gravity > 1.060 (1.001-1.035); Urine Urobilinogen < 2.0 EU/DL (0.2-1.0); WBC,Urine 1 /HPF (0-6)
[2020-05-02] MEDS ORDERED: HYDROmorphone 2 MG/1 ML VIAL IV STA (22:20)
[2020-05-02] MEDS ORDERED: ONDANSETRON 4 MG/2 ML VIAL IV STA (22:20)
[2020-05-02] MEDS ORDERED: ONDANSETRON 4 MG/2 ML VIAL ONE (22:22)
[2020-05-02] MEDS ORDERED: HYDROmorphone 2 MG/1 ML VIAL ONE (22:23)
[2020-05-02] MEDS ORDERED: PROMETHAZINE 25 MG/1 ML VIAL IM PRN (22:57)
[2020-05-02] MEDS ORDERED: DEXTROSE 50% 25 GM/50 ML VIAL IV PRN (22:57)
[2020-05-02] MEDS ORDERED: GLUCAGON 1 MG VIAL IM PRN (22:57)
[2020-05-02] MEDS ORDERED: NICOTINE 21 MG/24 HR PATCH TRANSDERM PRN (22:57)
[2020-05-02] MEDS ORDERED: DOCUSATE SODIUM 100 MG CAPSULE PO PRN (22:57)
[2020-05-02] MEDS ORDERED: EMPAGLIFLOZIN METFORMIN PO SCH (23:15)
[2020-05-03] MEDS ORDERED: HYDROmorphone 2 MG/1 ML VIAL IV PRN ×2 (00:22→11:31)
[2020-05-03] MEDS: SODIUM CHLORIDE 0.9% 1,000 ML IV SCH ×3 (01:14→20:08)
[2020-05-03] MEDS: INSULIN GLARGINE 100 UNIT/ML SUBCUT SCH ×3 (01:15→20:08)
[2020-05-03] MEDS ORDERED: VANCOMYCIN INJ 1,000 MG in SODIUM CHLORIDE 0.9% 250 ML IV ONE (01:30)
[2020-05-03] MEDS: busPIRone 10 MG TABLET PO PRN ×2 (01:46→20:07)
[2020-05-03] MEDS: ACETAMINOPHEN 325 MG TABLET PO PRN ×3 (01:46→09:30)
[2020-05-03] MEDS: LEVOTHYROXINE 25 MCG TABLET PO SCH (05:15)
[2020-05-03 06:55] LABS: Basophils # 0.1 10*3/uL (0.0-0.2); Basophils % 0.6 % (0.0-0.8); Eosinophils # 0.2 10*3/uL (0.0-0.87); Eosinophils % 1.4 % (0.00-10.9); Hematocrit 35.4 VOL% (35.7-47.0); Hemoglobin 10.6 GM/DL (12.0-16.0); Immature Granulocytes % 1.6 %; Immature Granulocytes Absolute 0.23 #; Lymphocytes # 1.9 10*3/uL (1.4-4.0); Lymphocytes % 13.7 % (21.3-54.2); Mean Corpuscular HGB Conc 29.9 GM/DL (32-36); Mean Corpuscular Volume 88.7 FL (87-102); Mean Platelet Volume 10.2 FL (9.6-12.0); Monocytes % 7.1 % (1.7-12.7); Neutrophils % 75.6 % (38.7-73.9); Platelet Count 446 T/CUMM (130-400); Red Blood Count 3.99 MC/CUMM (3.8-5.5); Red Cell Distribution Width 14.6 % (9.3-17.3); White Blood Count 14.1 T/CUMM (4-12)
[2020-05-03 07:23] LABS: Albumin 1.2 G/DL (3.4-5.0); Bilirubin,Total 0.5 MG/DL (0.2-1.0); Calcium 8.2 MG/DL (8.5-10.1); Osmolality,Calculated 272.1 MOS/KG (273-304); Total Protein 6.4 G/DL (6.4-8.3)
[2020-05-03] MEDS ORDERED: INSULIN LISPRO 100 UNIT/ML SUBCUT SCH (08:00)
[2020-05-03] MEDS: INSULIN LISPRO 100 UNIT/ML SUBCUT SCH ×5 (08:04→20:08)
[2020-05-03] MEDS: PANTOPRAZOLE 40 MG TABLET PO SCH (09:29)
[2020-05-03] MEDS: ESCITALOPRAM 10 MG TABLET PO SCH (09:29)
[2020-05-03] MEDS ORDERED: HYDROmorphone 2 MG/1 ML VIAL IV ONE (10:44)
[2020-05-03] MEDS: ONDANSETRON 4 MG/2 ML VIAL IV PRN (11:03)
[2020-05-03] MEDS ORDERED: LACTULOSE 20 GM/30 ML UDCUP PO PRN (11:32)
[2020-05-03] MEDS: VANCOMYCIN INJ 1,500 MG in SODIUM CHLORIDE 0.9% 500 ML IV SCH (11:57)
[2020-05-03] MEDS: DOCUSATE SODIUM 100 MG/10 ML UDCUP PO SCH ×2 (12:06→20:07)
[2020-05-03] MEDS: HYDROmorphone 2 MG/1 ML VIAL IV PRN ×2 (16:46→20:06)
[2020-05-04] MEDS: VANCOMYCIN INJ 1,500 MG in SODIUM CHLORIDE 0.9% 500 ML IV SCH ×2 (00:13→12:45)
[2020-05-04] MEDS: HYDROmorphone 2 MG/1 ML VIAL IV PRN ×7 (00:13→21:04)
[2020-05-04] MEDS: LEVOTHYROXINE 25 MCG TABLET PO SCH (05:11)
[2020-05-04] MEDS: SODIUM CHLORIDE 0.9% 1,000 ML IV SCH ×2 (05:11→16:32)
[2020-05-04 06:36] LABS: Basophils # 0.1 10*3/uL (0.0-0.2); Basophils % 0.5 % (0.0-0.8); Eosinophils # 0.1 10*3/uL (0.0-0.87); Eosinophils % 0.7 % (0.00-10.9); Hematocrit 33.3 VOL% (35.7-47.0); Hemoglobin 10.3 GM/DL (12.0-16.0); Immature Granulocytes % 2.7 %; Immature Granulocytes Absolute 0.57 #; Lymphocytes % 9.8 % (21.3-54.2); Mean Corpuscular HGB Conc 30.9 GM/DL (32-36); Mean Corpuscular Volume 88.8 FL (87-102); Mean Platelet Volume 10.1 FL (9.6-12.0); Monocytes % 7.1 % (1.7-12.7); Neutrophils % 79.2 % (38.7-73.9); Platelet Count 521 T/CUMM (130-400); Red Blood Count 3.75 MC/CUMM (3.8-5.5); Red Cell Distribution Width 14.9 % (9.3-17.3); White Blood Count 20.8 T/CUMM (4-12)
[2020-05-04 06:47] LABS: Albumin 1.2 G/DL (3.4-5.0); Bilirubin,Total 0.7 MG/DL (0.2-1.0); Osmolality,Calculated 266.7 MOS/KG (273-304); Total Protein 6.7 G/DL (6.4-8.3)
[2020-05-04 07:36] LABS: Band Neutrophils 3 % (0-10); Eosinophils 3 % (0-10); Lymphocytes 5 % (20-55); Segmented Neutrophils 82 % (50-85); Total Cells Counted 100
[2020-05-04 07:37] LABS: Hypochromasia 2+; Platelet Estimate Increased; Polychromasia Slight
[2020-05-04] MEDS: DOCUSATE SODIUM 100 MG/10 ML UDCUP PO SCH ×2 (09:07→20:10)
[2020-05-04] MEDS: ESCITALOPRAM 10 MG TABLET PO SCH (09:08)
[2020-05-04] MEDS: INSULIN LISPRO 100 UNIT/ML SUBCUT SCH ×6 (09:08→20:11)
[2020-05-04] MEDS: INSULIN GLARGINE 100 UNIT/ML SUBCUT SCH ×2 (09:08→20:10)
[2020-05-04] MEDS: PANTOPRAZOLE 40 MG TABLET PO SCH (09:08)
[2020-05-04] MEDS: MEROPENEM 500 MG in SODIUM CHLORIDE 0.9% 100 ML IV SCH ×3 (11:28→23:10)
[2020-05-04] MEDS: ONDANSETRON 4 MG/2 ML VIAL IV PRN (14:35)
[2020-05-04] MEDS: ACETAMINOPHEN 325 MG TABLET PO PRN (20:10)
[2020-05-04] MEDS: busPIRone 10 MG TABLET PO PRN (20:11)
[2020-05-04] MEDS: GABAPENTIN 100 MG CAPSULE PO SCH (21:04)
[2020-05-05] MEDS: HYDROmorphone 2 MG/1 ML VIAL IV PRN ×8 (00:24→22:04)
[2020-05-05] MEDS: SODIUM CHLORIDE 0.9% 1,000 ML IV SCH ×3 (00:25→22:06)
[2020-05-05] MEDS: VANCOMYCIN INJ 1,500 MG in SODIUM CHLORIDE 0.9% 500 ML IV SCH ×2 (00:25→13:45)
[2020-05-05 05:43] LABS: Basophils # 0.1 10*3/uL (0.0-0.2); Basophils % 0.6 % (0.0-0.8); Eosinophils # 0.1 10*3/uL (0.0-0.87); Eosinophils % 0.6 % (0.00-10.9); Hemoglobin 10.2 GM/DL (12.0-16.0); Immature Granulocytes % 2.7 %; Immature Granulocytes Absolute 0.58 #; Lymphocytes % 9.4 % (21.3-54.2); Mean Corpuscular HGB Conc 30.9 GM/DL (32-36); Mean Corpuscular Volume 86.6 FL (87-102); Mean Platelet Volume 9.6 FL (9.6-12.0); Neutrophils % 79.7 % (38.7-73.9); Platelet Count 517 T/CUMM (130-400); Red Blood Count 3.81 MC/CUMM (3.8-5.5); Red Cell Distribution Width 15.4 % (9.3-17.3); White Blood Count 21.3 T/CUMM (4-12)
[2020-05-05 06:07] LABS: Calcium 8.4 MG/DL (8.5-10.1); Osmolality,Calculated 266.2 MOS/KG (273-304)
[2020-05-05 06:14] LABS: Band Neutrophils 5 % (0-10); Eosinophils 2 % (0-10); Hypochromasia 1+; Lymphocytes 10 % (20-55); Segmented Neutrophils 80 % (50-85); Total Cells Counted 100
[2020-05-05 06:15] LABS: Microcytosis Slight; Platelet Estimate Increased
[2020-05-05] MEDS: MEROPENEM 500 MG in SODIUM CHLORIDE 0.9% 100 ML IV SCH ×4 (06:23→23:59)
[2020-05-05] MEDS: LEVOTHYROXINE 25 MCG TABLET PO SCH (06:24)
[2020-05-05] MEDS: INSULIN LISPRO 100 UNIT/ML SUBCUT SCH ×6 (07:40→22:07)
[2020-05-05] MEDS: PANTOPRAZOLE 40 MG TABLET PO SCH (09:13)
[2020-05-05] MEDS: GABAPENTIN 100 MG CAPSULE PO SCH ×3 (09:13→22:06)
[2020-05-05] MEDS: ESCITALOPRAM 10 MG TABLET PO SCH (09:13)
[2020-05-05] MEDS: INSULIN GLARGINE 100 UNIT/ML SUBCUT SCH ×2 (09:13→22:07)
[2020-05-05] MEDS: DOCUSATE SODIUM 100 MG/10 ML UDCUP PO SCH ×2 (09:13→22:06)
[2020-05-05 22:40] LABS: Amorphous Crystals,Urine Occasional /HPF (Few); Apearance,Urine CLOUDY (Clear); Bilirubin,Urine Negative (Negative); Blood, Urine Small mg/dL (Negative); Glucose,Urine (UA) 50 mg/dL (Negative); Ketones,Urine Negative (Negative); Mucus,Urine Occasional /LPF (Occasional); Nitrite,Urine Negative (Negative); Protein,Urine 30 MG/DL; Squamous Epithelial Cell,Urine Occasional /HPF (0-10); Urine Color Amber (Yellow); Urine Specific Gravity 1.018 (1.001-1.035); Urine Urobilinogen < 2.0 EU/DL (0.2-1.0)
[2020-05-06] MEDS: HYDROmorphone 2 MG/1 ML VIAL IV PRN ×6 (01:01→23:36)
[2020-05-06] MEDS: VANCOMYCIN INJ 1,500 MG in SODIUM CHLORIDE 0.9% 500 ML IV SCH ×2 (01:01→18:37)
[2020-05-06 05:10] LABS: Basophils # 0.1 10*3/uL (0.0-0.2); Basophils % 0.6 % (0.0-0.8); Eosinophils # 0.2 10*3/uL (0.0-0.87); Hematocrit 30.8 VOL% (35.7-47.0); Hemoglobin 9.6 GM/DL (12.0-16.0); Immature Granulocytes % 2.7 %; Immature Granulocytes Absolute 0.46 #; Lymphocytes # 1.8 10*3/uL (1.4-4.0); Lymphocytes % 10.6 % (21.3-54.2); Mean Corpuscular HGB Conc 31.2 GM/DL (32-36); Mean Corpuscular Volume 87.3 FL (87-102); Mean Platelet Volume 9.6 FL (9.6-12.0); Monocytes % 7.5 % (1.7-12.7); Neutrophils % 77.6 % (38.7-73.9); Platelet Count 465 T/CUMM (130-400); Red Blood Count 3.53 MC/CUMM (3.8-5.5); Red Cell Distribution Width 15.6 % (9.3-17.3); White Blood Count 16.9 T/CUMM (4-12)
[2020-05-06 05:28] LABS: Calcium 8.2 MG/DL (8.5-10.1); Osmolality,Calculated 267.2 MOS/KG (273-304)
[2020-05-06] MEDS: MEROPENEM 500 MG in SODIUM CHLORIDE 0.9% 100 ML IV SCH ×2 (06:21→12:04)
[2020-05-06] MEDS: LEVOTHYROXINE 25 MCG TABLET PO SCH (06:21)
[2020-05-06] MEDS: INSULIN LISPRO 100 UNIT/ML SUBCUT SCH ×6 (07:48→20:14)
[2020-05-06] MEDS: INSULIN GLARGINE 100 UNIT/ML SUBCUT SCH ×2 (08:48→20:13)
[2020-05-06] MEDS: DOCUSATE SODIUM 100 MG/10 ML UDCUP PO SCH ×2 (08:49→20:11)
[2020-05-06] MEDS: ESCITALOPRAM 10 MG TABLET PO SCH (08:49)
[2020-05-06] MEDS: GABAPENTIN 100 MG CAPSULE PO SCH ×3 (08:49→20:13)
[2020-05-06] MEDS: PANTOPRAZOLE 40 MG TABLET PO SCH (08:49)
[2020-05-06] MEDS ORDERED: fentaNYL 25 MCG/HR PATCH TRANSDERM SCH (10:30)
[2020-05-06] MEDS: SULFAMETHOX/TRIMETHOPRIM 800-160 MG TABLET PO SCH (20:13)
[2020-05-07] MEDS: HYDROmorphone 2 MG/1 ML VIAL IV PRN ×7 (02:52→22:15)
[2020-05-07] MEDS: VANCOMYCIN INJ 1,500 MG in SODIUM CHLORIDE 0.9% 500 ML IV SCH ×2 (03:55→17:06)
[2020-05-07 05:53] LABS: Basophils # 0.1 10*3/uL (0.0-0.2); Basophils % 0.4 % (0.0-0.8); Eosinophils # 0.3 10*3/uL (0.0-0.87); Eosinophils % 1.8 % (0.00-10.9); Hematocrit 30.6 VOL% (35.7-47.0); Hemoglobin 9.7 GM/DL (12.0-16.0); Immature Granulocytes % 2.7 %; Lymphocytes # 1.9 10*3/uL (1.4-4.0); Lymphocytes % 13.2 % (21.3-54.2); Mean Corpuscular HGB Conc 31.7 GM/DL (32-36); Mean Corpuscular Volume 85.5 FL (87-102); Mean Platelet Volume 9.4 FL (9.6-12.0); Monocytes % 8.1 % (1.7-12.7); Neutrophils % 73.8 % (38.7-73.9); Platelet Count 430 T/CUMM (130-400); Red Blood Count 3.58 MC/CUMM (3.8-5.5); Red Cell Distribution Width 15.6 % (9.3-17.3); White Blood Count 14.7 T/CUMM (4-12)
[2020-05-07] MEDS: LEVOTHYROXINE 25 MCG TABLET PO SCH (06:07)
[2020-05-07 06:13] LABS: Calcium 7.9 MG/DL (8.5-10.1); Osmolality,Calculated 264.2 MOS/KG (273-304)
[2020-05-07] MEDS: INSULIN LISPRO 100 UNIT/ML SUBCUT SCH ×6 (08:00→21:53)
[2020-05-07] MEDS: DOCUSATE SODIUM 100 MG/10 ML UDCUP PO SCH ×2 (08:22→21:52)
[2020-05-07] MEDS: SULFAMETHOX/TRIMETHOPRIM 800-160 MG TABLET PO SCH ×2 (08:22→21:52)
[2020-05-07] MEDS: PANTOPRAZOLE 40 MG TABLET PO SCH (08:23)
[2020-05-07] MEDS: GABAPENTIN 100 MG CAPSULE PO SCH ×3 (08:23→21:53)
[2020-05-07] MEDS: ESCITALOPRAM 10 MG TABLET PO SCH (08:37)
[2020-05-07] MEDS: INSULIN GLARGINE 100 UNIT/ML SUBCUT SCH ×2 (09:16→21:53)
[2020-05-07] MEDS: SODIUM CHLORIDE 0.9% 1,000 ML IV SCH (12:45)
[2020-05-08] MEDS: HYDROmorphone 2 MG/1 ML VIAL IV PRN ×4 (01:25→12:36)
[2020-05-08] MEDS: VANCOMYCIN INJ 1,500 MG in SODIUM CHLORIDE 0.9% 500 ML IV SCH (04:37)
[2020-05-08 06:17] LABS: Basophils # 0.1 10*3/uL (0.0-0.2); Basophils % 0.6 % (0.0-0.8); Eosinophils # 0.2 10*3/uL (0.0-0.87); Eosinophils % 1.4 % (0.00-10.9); Hematocrit 30.8 VOL% (35.7-47.0); Hemoglobin 9.5 GM/DL (12.0-16.0); Immature Granulocytes % 2.5 %; Immature Granulocytes Absolute 0.39 #; Lymphocytes # 1.8 10*3/uL (1.4-4.0); Lymphocytes % 11.5 % (21.3-54.2); Mean Corpuscular HGB Conc 30.8 GM/DL (32-36); Mean Corpuscular Volume 86.5 FL (87-102); Mean Platelet Volume 9.2 FL (9.6-12.0); Monocytes % 8.6 % (1.7-12.7); Neutrophils % 75.4 % (38.7-73.9); Platelet Count 464 T/CUMM (130-400); Red Blood Count 3.56 MC/CUMM (3.8-5.5); Red Cell Distribution Width 15.7 % (9.3-17.3); White Blood Count 15.5 T/CUMM (4-12)
[2020-05-08] MEDS: LEVOTHYROXINE 25 MCG TABLET PO SCH (06:24)
[2020-05-08 06:38] LABS: Calcium 7.9 MG/DL (8.5-10.1); Osmolality,Calculated 264.2 MOS/KG (273-304)
[2020-05-08] MEDS: PANTOPRAZOLE 40 MG TABLET PO SCH (08:53)
[2020-05-08] MEDS: SULFAMETHOX/TRIMETHOPRIM 800-160 MG TABLET PO SCH (08:53)
[2020-05-08] MEDS: GABAPENTIN 100 MG CAPSULE PO SCH ×2 (08:53→15:12)
[2020-05-08] MEDS: DOCUSATE SODIUM 100 MG/10 ML UDCUP PO SCH (08:53)
[2020-05-08] MEDS: ESCITALOPRAM 10 MG TABLET PO SCH (08:54)
[2020-05-08] MEDS: INSULIN LISPRO 100 UNIT/ML SUBCUT SCH ×3 (08:55→11:52)
[2020-05-08] MEDS: INSULIN GLARGINE 100 UNIT/ML SUBCUT SCH (08:56)
[2020-05-08 12:05] VITALS: BP 133/80
== END 2020-05-08 15:30 | disposition home health service (06) | DRG 468 ==
LOC: EDBD → EDUNIT# → N.ED 21:25 → N.EDINP 21:25 → SUATTDRO 22:11 → N.EDINP 05-03 00:11 → N.3E 05-03 00:29
PROVIDERS: ADMIT Internal Medicine; ATTEND Family Medicine

== ENCOUNTER 2020-06-25 11:13 | Inpatient (IN) ==
[2020-06-25] MEDS ORDERED: SODIUM CHLORIDE 0.9% 1,000 ML IV STA (12:55)
[2020-06-25] MEDS ORDERED: VANCOMYCIN INJ 1,500 MG in SODIUM CHLORIDE 0.9% 500 ML IV STA (12:56)
[2020-06-25] MEDS ORDERED: HYDROmorphone 2 MG/1 ML VIAL IV STA (13:15)
[2020-06-25] MEDS ORDERED: ONDANSETRON 4 MG/2 ML VIAL IV STA (13:15)
[2020-06-25] MEDS ORDERED: HYDROmorphone 2 MG/1 ML VIAL ONE (13:16)
[2020-06-25] MEDS ORDERED: ONDANSETRON 4 MG/2 ML VIAL ONE (13:16)
[2020-06-25 13:31] LABS: Basophils # 0.1 10*3/uL (0.0-0.2); Basophils % 0.9 % (0.0-0.8); Eosinophils # 0.5 10*3/uL (0.0-0.87); Eosinophils % 5.5 % (0.00-10.9); Hematocrit 37.3 VOL% (35.7-47.0); Hemoglobin 11.3 GM/DL (12.0-16.0); Immature Granulocytes % 1.2 %; Immature Granulocytes Absolute 0.12 #; Lymphocytes # 2.2 10*3/uL (1.4-4.0); Lymphocytes % 22.3 % (21.3-54.2); Mean Corpuscular HGB Conc 30.3 GM/DL (32-36); Mean Corpuscular Volume 93.5 FL (87-102); Mean Platelet Volume 8.2 FL (9.6-12.0); Monocytes % 7.2 % (1.7-12.7); Neutrophils % 62.9 % (38.7-73.9); Platelet Count 517 T/CUMM (130-400); Red Blood Count 3.99 MC/CUMM (3.8-5.5); Red Cell Distribution Width 18.7 % (9.3-17.3); White Blood Count 9.7 T/CUMM (4-12)
[2020-06-25 13:58] LABS: Albumin 1.6 G/DL (3.4-5.0); Bilirubin,Total 0.9 MG/DL (0.2-1.0); Calcium 8.8 MG/DL (8.5-10.1); Osmolality,Calculated 269.1 MOS/KG (273-304); Total Protein 7.8 G/DL (6.4-8.3)
[2020-06-25] MEDS ORDERED: GLUCAGON 1 MG VIAL IM PRN ×2 (16:31)
[2020-06-25] MEDS ORDERED: DEXTROSE 50% 25 GM/50 ML SYRINGE IV PRN (16:31)
[2020-06-25] MEDS ORDERED: ACETAMINOPHEN 325 MG TABLET PO PRN (16:31)
[2020-06-25] MEDS ORDERED: ONDANSETRON 4 MG/2 ML VIAL IV PRN (16:31)
[2020-06-25] MEDS ORDERED: DEXTROSE 50% 25 GM/50 ML VIAL IV PRN (16:31)
[2020-06-25] MEDS: INSULIN LISPRO 100 UNIT/ML SUBCUT SCH (20:08)
[2020-06-25] MEDS: SODIUM CHLORIDE 0.9% 1,000 ML IV SCH (20:10)
[2020-06-26 04:35] LABS: Bacteria,Urine Moderate /HPF (Few); Bilirubin,Urine Negative (Negative); Blood, Urine Negative (Negative); Glucose,Urine (UA) Negative (Negative); Ketones,Urine Negative (Negative); Mucus,Urine Occasional /LPF (Occasional); Nitrite,Urine Negative (Negative); Protein,Urine Negative; RBC,Urine 3 /HPF (0-4); Squamous Epithelial Cell,Urine Few /HPF (0-10); Urine Appearance Slightly Hazy (Clear); Urine Color Yellow (Yellow); Urine Specific Gravity 1.009 (1.001-1.035); Urine Urobilinogen < 2.0 EU/DL (0.2-1.0); WBC,Urine 2 /HPF (0-6)
[2020-06-26] MEDS: SODIUM CHLORIDE 0.9% 1,000 ML IV SCH ×2 (05:20→17:50)
[2020-06-26 05:38] LABS: Basophils # 0.1 10*3/uL (0.0-0.2); Basophils % 0.7 % (0.0-0.8); Eosinophils # 0.7 10*3/uL (0.0-0.87); Eosinophils % 6.2 % (0.00-10.9); Hematocrit 34.8 VOL% (35.7-47.0); Hemoglobin 10.7 GM/DL (12.0-16.0); Immature Granulocytes % 1.6 %; Immature Granulocytes Absolute 0.17 #; Lymphocytes # 2.5 10*3/uL (1.4-4.0); Lymphocytes % 22.6 % (21.3-54.2); Mean Corpuscular HGB Conc 30.7 GM/DL (32-36); Mean Corpuscular Volume 94.1 FL (87-102); Mean Platelet Volume 8.2 FL (9.6-12.0); Monocytes % 6.9 % (1.7-12.7); Platelet Count 512 T/CUMM (130-400); Red Cell Distribution Width 18.6 % (9.3-17.3); White Blood Count 10.9 T/CUMM (4-12)
[2020-06-26 06:04] LABS: Band Neutrophils 2 % (0-10); Eosinophils 5 % (0-10); Hypochromasia 1+; Lymphocytes 21 % (20-55); Microcytosis Slight; Platelet Estimate Adequate; Segmented Neutrophils 64 % (50-85); Total Cells Counted 100
[2020-06-26 06:18] LABS: Calcium 8.5 MG/DL (8.5-10.1); Osmolality,Calculated 268.1 MOS/KG (273-304); Thyroid Stimulating Hormone 1.88 uIU/ml (0.358-3.74)
[2020-06-26] MEDS ORDERED: LIDOCAINE 1%/EPI INJ 20 ML VIAL ONE (09:31)
[2020-06-26] MEDS ORDERED: BUPIVACAINE MPF 0.25% 30 ML VIAL ONE (09:31)
[2020-06-26 10:19] LABS: Barbiturates Screen,Urine Negative (Negative); Benzodiazepines Screen,Urine Negative (Negative); Cannabinoid Screen,Urine Negative (Negative); Opiate Screen,Urine Positive (Negative); Phencyclidine Screen,Urine Negative (Negative)
[2020-06-26] MEDS ORDERED: VANCOMYCIN 1,000 MG VIAL ONE (10:23)
[2020-06-26] MEDS: VANCOMYCIN INJ 2,000 MG in SODIUM CHLORIDE 0.9% 500 ML IV SCH (10:25)
[2020-06-26] MEDS ORDERED: SUGAMMADEX 200 MG/2 ML VIAL IV ONE (10:27)
[2020-06-26] MEDS ORDERED: ONDANSETRON 4 MG/2 ML VIAL IV PRN (10:56)
[2020-06-26] MEDS ORDERED: ONDANSETRON 4 MG/2 ML VIAL ONE ×2 (10:58→11:00)
[2020-06-26] MEDS ORDERED: HYDROmorphone 2 MG/1 ML VIAL ONE (10:58)
[2020-06-26] MEDS ORDERED: LIDOCAINE 2% 5 ML VIAL ONE (10:59)
[2020-06-26] MEDS ORDERED: propofoL 200 MG/20 ML VIAL IV ONE (10:59)
[2020-06-26] MEDS ORDERED: MIDAZOLAM 2 MG/2 ML VIAL ONE (10:59)
[2020-06-26] MEDS ORDERED: fentaNYL 100 MCG/2 ML VIAL ONE (11:00)
[2020-06-26] MEDS ORDERED: ROCURONIUM 100 MG/10 ML VIAL IV ONE (11:00)
[2020-06-26] MEDS ORDERED: SEVOFLURANE 1 UNIT/15 MINUTE INH ONE (11:01)
[2020-06-26] MEDS: HYDROmorphone 2 MG/1 ML VIAL IV PRN ×4 (11:02→11:17)
[2020-06-26] MEDS ORDERED: DEXTROSE 50% 25 GM/50 ML VIAL IV PRN (11:46)
[2020-06-26] MEDS: INSULIN LISPRO 100 UNIT/ML SUBCUT SCH ×3 (13:34→21:39)
[2020-06-26] MEDS ORDERED: HYDROmorphone 2 MG/1 ML VIAL IV ONE (21:20)
[2020-06-27] MEDS: VANCOMYCIN INJ 2,000 MG in SODIUM CHLORIDE 0.9% 500 ML IV SCH (02:20)
[2020-06-27] MEDS: SODIUM CHLORIDE 0.9% 1,000 ML IV SCH (02:28)
[2020-06-27 05:56] LABS: Basophils # 0.1 10*3/uL (0.0-0.2); Basophils % 0.7 % (0.0-0.8); Eosinophils # 0.5 10*3/uL (0.0-0.87); Eosinophils % 6.7 % (0.00-10.9); Hematocrit 32.1 VOL% (35.7-47.0); Hemoglobin 9.4 GM/DL (12.0-16.0); Immature Granulocytes % 1.4 %; Immature Granulocytes Absolute 0.11 #; Lymphocytes % 25.2 % (21.3-54.2); Mean Corpuscular HGB Conc 29.3 GM/DL (32-36); Mean Corpuscular Volume 95.5 FL (87-102); Mean Platelet Volume 8.4 FL (9.6-12.0); Monocytes % 7.6 % (1.7-12.7); Neutrophils % 58.4 % (38.7-73.9); Platelet Count 417 T/CUMM (130-400); Red Blood Count 3.36 MC/CUMM (3.8-5.5); Red Cell Distribution Width 18.6 % (9.3-17.3); White Blood Count 8.1 T/CUMM (4-12)
[2020-06-27 06:25] LABS: Calcium 8.5 MG/DL (8.5-10.1); Osmolality,Calculated 270.8 MOS/KG (273-304)
[2020-06-27] MEDS: INSULIN LISPRO 100 UNIT/ML SUBCUT SCH (07:59)
[2020-06-27 12:21] VITALS: BP 122/75
== END 2020-06-27 12:00 | disposition home or self-care (01) | DRG 721 ==
LOC: N.ED 11:13 → N.EDINP 13:30 → N.3E 16:46
PROVIDERS: ADMIT Internal Medicine; ATTEND Internal Medicine

== ENCOUNTER 2022-03-10 19:23 | Inpatient (IN) ==
[2022-03-10] MEDS ORDERED: fentaNYL 100 MCG/2 ML VIAL IV STA ×2 (20:09→21:42)
[2022-03-10] MEDS ORDERED: SODIUM CHLORIDE 0.9% 1,000 ML IV STA (20:09)
[2022-03-10] MEDS ORDERED: VANCOMYCIN INJ 1,000 MG in SODIUM CHLORIDE 0.9% 250 ML IV STA (20:12)
[2022-03-10] MEDS ORDERED: CLINDAMYCIN INJ 600 MG/50 ML PREMIX IV STA (20:12)
[2022-03-10 20:31] LABS: Basophils # 0.1 10*3/uL (0.0-0.2); Basophils % 0.4 % (0.0-0.8); Eosinophils % 0.1 % (0.00-10.9); Hematocrit 43.4 VOL% (35.7-47.0); Hemoglobin 14.3 GM/DL (12.0-16.0); Immature Granulocytes % 1.3 %; Immature Granulocytes Absolute 0.18 #; Lymphocytes # 0.7 10*3/uL (1.4-4.0); Lymphocytes % 4.8 % (21.3-54.2); Mean Corpuscular HGB Conc 32.9 GM/DL (32-36); Mean Corpuscular Volume 86.8 FL (87-102); Mean Platelet Volume 9.8 FL (9.6-12.0); Monocytes # 0.7 10*3/uL (0.11-0.8); Monocytes % 5.2 % (1.7-12.7); Neutrophils % 88.2 % (38.7-73.9); Platelet Count 230 T/CUMM (130-400); Red Cell Distribution Width 14.3 % (9.3-17.3); White Blood Count 13.5 T/CUMM (4-12)
[2022-03-10 20:53] LABS: Calcium 8.6 MG/DL (8.5-10.1); Osmolality,Calculated 262.9 MOS/KG (273-304); Potassium 4.4 MMOL/L (3.5-5.1)
[2022-03-10 20:54] LABS: Lymphocytes 4 % (20-55); Platelet Estimate Adequate; Total Cells Counted 100
[2022-03-10] MEDS ORDERED: DEXTROSE 50% 25 GM/50 ML VIAL IV PRN (22:31)
[2022-03-10] MEDS ORDERED: ACETAMINOPHEN 325 MG TABLET PO PRN (22:31)
[2022-03-10] MEDS ORDERED: ONDANSETRON 4 MG/2 ML VIAL IV PRN (22:31)
[2022-03-10] MEDS ORDERED: hydrALAZINE 20 MG/1 ML VIAL IV PRN (22:31)
[2022-03-10] MEDS ORDERED: diphenhydrAMINE CAP 25 MG CAPSULE PO PRN (22:31)
[2022-03-10] MEDS ORDERED: GLUCAGON 1 MG VIAL IM PRN ×2 (22:31)
[2022-03-10] MEDS ORDERED: DEXTROSE 10% 250 ML BAG IV PRN (22:31)
[2022-03-10] MEDS ORDERED: ZALEPLON 5 MG CAPSULE PO PRN (22:31)
[2022-03-10] MEDS ORDERED: SODIUM CHLORIDE 0.9% 1,000 ML IV SCH (23:00)
[2022-03-11] MEDS ORDERED: SODIUM CHLORIDE 0.9% 1,000 ML IV STA (01:12)
[2022-03-11] MEDS: VANCOMYCIN INJ 2,000 MG in SODIUM CHLORIDE 0.9% 500 ML IV SCH ×2 (03:37→15:39)
[2022-03-11] MEDS ORDERED: HYDROmorphone 1 MG/1 ML SYRINGE IV ONE ×2 (03:43→09:49)
[2022-03-11 05:18] LABS: Basophils % 0.3 % (0.0-0.8); Eosinophils % 0.1 % (0.00-10.9); Hematocrit 35.8 VOL% (35.7-47.0); Hemoglobin 11.8 GM/DL (12.0-16.0); Immature Granulocytes % 1.2 %; Immature Granulocytes Absolute 0.16 #; Lymphocytes # 1.2 10*3/uL (1.4-4.0); Lymphocytes % 8.8 % (21.3-54.2); Mean Platelet Volume 10.5 FL (9.6-12.0); Monocytes # 0.7 10*3/uL (0.11-0.8); Monocytes % 5.3 % (1.7-12.7); Neutrophils % 84.3 % (38.7-73.9); Platelet Count 187 T/CUMM (130-400); Red Blood Count 4.07 MC/CUMM (3.8-5.5); Red Cell Distribution Width 14.4 % (9.3-17.3); White Blood Count 13.1 T/CUMM (4-12)
[2022-03-11 05:35] LABS: Band Neutrophils 2 % (0-10); Lymphocytes 10 % (20-55); Total Cells Counted 100
[2022-03-11 05:36] LABS: Hypochromia Slight; Microcytosis Slight; Platelet Estimate Adequate
[2022-03-11 05:41] LABS: Calcium 7.8 MG/DL (8.5-10.1); Osmolality,Calculated 262.9 MOS/KG (273-304); Potassium 4.3 MMOL/L (3.5-5.1)
[2022-03-11] MEDS: CLINDAMYCIN INJ 600 MG/50 ML PREMIX IV SCH ×3 (06:18→20:26)
[2022-03-11] MEDS ORDERED: MAGNESIUM SULF RIDER 2 GM/50 ML PREMIX IV ONE (07:29)
[2022-03-11] MEDS ORDERED: SODIUM CHLOR 0.9% KCL 20 MEQ 20 MEQ/1,000 ML BAG IV SCH (08:30)
[2022-03-11] MEDS: PANTOPRAZOLE 40 MG TABLET PO SCH (09:08)
[2022-03-11] MEDS: BISACODYL 5 MG TABLET PO SCH (09:08)
[2022-03-11] MEDS: INSULIN LISPRO 100 UNIT/ML SUBCUT SCH ×4 (09:10→20:28)
[2022-03-11] MEDS ORDERED: HYDROmorphone 1 MG/1 ML SYRINGE IV PRN ×2 (10:10→10:51)
[2022-03-11] MEDS ORDERED: busPIRone 15 MG TABLET PO PRN (10:15)
[2022-03-11] MEDS: HYDROmorphone 1 MG/1 ML SYRINGE IV PRN ×2 (12:27→14:16)
[2022-03-11] MEDS: NICOTINE 21 MG/24 HR PATCH TRANSDERM PRN (14:40)
[2022-03-11] MEDS ORDERED: fentaNYL 100 MCG/2 ML VIAL ONE (15:43)
[2022-03-11] MEDS ORDERED: LIDOCAINE 2% 5 ML VIAL ONE (15:43)
[2022-03-11] MEDS ORDERED: MIDAZOLAM 2 MG/2 ML VIAL ONE (15:43)
[2022-03-11] MEDS ORDERED: propofoL 200 MG/20 ML VIAL IV ONE (15:43)
[2022-03-11] MEDS: PREGABALIN 75 MG CAPSULE PO SCH ×2 (16:08→20:26)
[2022-03-11] MEDS ORDERED: ALBUTEROL 2.5 MG/3 ML NEB RESP TX ONE (17:46)
[2022-03-11] MEDS ORDERED: SUCCINYLCHOLINE 200 MG/10 ML VIAL ONE (18:16)
[2022-03-11] MEDS ORDERED: SEVOFLURANE 1 UNIT/15 MINUTE INH ONE (18:16)
[2022-03-11] MEDS: INSULIN GLARGINE 100 UNIT/ML SUBCUT SCH (20:27)
[2022-03-11] MEDS: MAGNESIUM OXIDE 400 MG TABLET PO SCH (20:41)
[2022-03-12] MEDS: VANCOMYCIN INJ 2,000 MG in SODIUM CHLORIDE 0.9% 500 ML IV SCH ×2 (02:44→18:43)
[2022-03-12] MEDS: HYDROmorphone 1 MG/1 ML SYRINGE IV PRN ×8 (03:09→23:41)
[2022-03-12 05:29] LABS: Basophils # 0.1 10*3/uL (0.0-0.2); Basophils % 0.4 % (0.0-0.8); Eosinophils % 0.2 % (0.00-10.9); Hematocrit 34.9 VOL% (35.7-47.0); Hemoglobin 11.4 GM/DL (12.0-16.0); Immature Granulocytes % 1.2 %; Immature Granulocytes Absolute 0.15 #; Lymphocytes # 1.4 10*3/uL (1.4-4.0); Mean Corpuscular HGB Conc 32.7 GM/DL (32-36); Mean Platelet Volume 9.5 FL (9.6-12.0); Monocytes # 0.6 10*3/uL (0.11-0.8); Monocytes % 5.2 % (1.7-12.7); Platelet Count 205 T/CUMM (130-400); Red Blood Count 4.01 MC/CUMM (3.8-5.5); Red Cell Distribution Width 14.6 % (9.3-17.3); White Blood Count 12.4 T/CUMM (4-12)
[2022-03-12] MEDS: LEVOTHYROXINE 25 MCG TABLET PO SCH (05:33)
[2022-03-12 05:43] LABS: Calcium 7.8 MG/DL (8.5-10.1); Osmolality,Calculated 275.2 MOS/KG (273-304); Potassium 4.3 MMOL/L (3.5-5.1)
[2022-03-12 05:54] LABS: Eosinophils 1 % (0-10); Hypochromia Slight; Lymphocytes 12 % (20-55); Microcytosis Slight; Total Cells Counted 100
[2022-03-12] MEDS: MAGNESIUM OXIDE 400 MG TABLET PO SCH ×2 (09:03→21:14)
[2022-03-12] MEDS: PANTOPRAZOLE 40 MG TABLET PO SCH (09:03)
[2022-03-12] MEDS: PREGABALIN 75 MG CAPSULE PO SCH ×3 (09:03→21:14)
[2022-03-12] MEDS: INSULIN GLARGINE 100 UNIT/ML SUBCUT SCH ×2 (09:04→21:15)
[2022-03-12] MEDS: CLINDAMYCIN INJ 600 MG/50 ML PREMIX IV SCH (09:06)
[2022-03-12] MEDS: INSULIN LISPRO 100 UNIT/ML SUBCUT SCH ×4 (09:15→21:15)
[2022-03-12] MEDS: BISACODYL 5 MG TABLET PO SCH (09:21)
[2022-03-12] MEDS: ALBUTEROL/IPRATROPIUM 3 ML NEB RESP TX SCH ×5 (10:22→23:00)
[2022-03-12] MEDS: cefTRIAXone 1,000 MG in SODIUM CHLORIDE 0.9% 100 ML IV SCH (10:37)
[2022-03-12] MEDS: NICOTINE 21 MG/24 HR PATCH TRANSDERM PRN (11:21)
[2022-03-12] MEDS: metroNIDAZOLE INJ 500 MG/100 ML PREMIX IV SCH ×2 (11:24→22:16)
[2022-03-12] MEDS: SODIUM HYPOCHLORITE 0.25% IRRIG 473 ML BOTTLE TOP SCH (16:30)
[2022-03-13] MEDS: ALBUTEROL/IPRATROPIUM 3 ML NEB RESP TX SCH ×7 (02:10→23:43)
[2022-03-13] MEDS: HYDROmorphone 1 MG/1 ML SYRINGE IV PRN ×9 (02:26→23:04)
[2022-03-13] MEDS: VANCOMYCIN INJ 2,000 MG in SODIUM CHLORIDE 0.9% 500 ML IV SCH ×2 (03:13→16:13)
[2022-03-13 05:47] LABS: Basophils # 0.1 10*3/uL (0.0-0.2); Basophils % 0.5 % (0.0-0.8); Eosinophils # 0.1 10*3/uL (0.0-0.87); Eosinophils % 0.7 % (0.00-10.9); Hematocrit 36.9 VOL% (35.7-47.0); Immature Granulocytes % 1.7 %; Immature Granulocytes Absolute 0.25 #; Lymphocytes % 13.7 % (21.3-54.2); Mean Corpuscular HGB Conc 32.5 GM/DL (32-36); Mean Corpuscular Volume 87.2 FL (87-102); Mean Platelet Volume 9.8 FL (9.6-12.0); Monocytes # 0.7 10*3/uL (0.11-0.8); Monocytes % 4.7 % (1.7-12.7); Neutrophils % 78.7 % (38.7-73.9); Platelet Count 293 T/CUMM (130-400); Red Blood Count 4.23 MC/CUMM (3.8-5.5); White Blood Count 14.8 T/CUMM (4-12)
[2022-03-13 06:02] LABS: Calcium 7.9 MG/DL (8.5-10.1); Osmolality,Calculated 274.5 MOS/KG (273-304); Potassium 4.3 MMOL/L (3.5-5.1)
[2022-03-13] MEDS: LEVOTHYROXINE 25 MCG TABLET PO SCH (06:21)
[2022-03-13] MEDS: metroNIDAZOLE INJ 500 MG/100 ML PREMIX IV SCH ×3 (06:23→21:16)
[2022-03-13] MEDS: INSULIN LISPRO 100 UNIT/ML SUBCUT SCH ×4 (09:09→21:20)
[2022-03-13] MEDS: guaiFENesin/DM ER 600-30 MG TABLET PO PRN (09:10)
[2022-03-13] MEDS: MAGNESIUM OXIDE 400 MG TABLET PO SCH ×2 (09:10→21:15)
[2022-03-13] MEDS: PANTOPRAZOLE 40 MG TABLET PO SCH (09:10)
[2022-03-13] MEDS: PREGABALIN 75 MG CAPSULE PO SCH ×3 (09:10→21:15)
[2022-03-13] MEDS: INSULIN GLARGINE 100 UNIT/ML SUBCUT SCH ×2 (09:10→21:19)
[2022-03-13] MEDS: SODIUM CHLORIDE 0.9% 1,000 ML IV SCH (09:12)
[2022-03-13] MEDS: SODIUM HYPOCHLORITE 0.25% IRRIG 473 ML BOTTLE TOP SCH (09:38)
[2022-03-13] MEDS: BISACODYL 5 MG TABLET PO SCH (09:48)
[2022-03-13] MEDS: cefTRIAXone 1,000 MG in SODIUM CHLORIDE 0.9% 100 ML IV SCH (11:07)
[2022-03-13] MEDS: NICOTINE 21 MG/24 HR PATCH TRANSDERM PRN (18:43)
[2022-03-14] MEDS: SODIUM CHLORIDE 0.9% 1,000 ML IV SCH ×2 (00:37→11:04)
[2022-03-14] MEDS: HYDROmorphone 1 MG/1 ML SYRINGE IV PRN ×12 (03:10→23:37)
[2022-03-14] MEDS: ALBUTEROL/IPRATROPIUM 3 ML NEB RESP TX SCH ×5 (03:34→14:57)
[2022-03-14] MEDS: VANCOMYCIN INJ 2,000 MG in SODIUM CHLORIDE 0.9% 500 ML IV SCH ×2 (03:35→15:58)
[2022-03-14 05:22] LABS: Basophils # 0.1 10*3/uL (0.0-0.2); Basophils % 0.5 % (0.0-0.8); Eosinophils # 0.2 10*3/uL (0.0-0.87); Eosinophils % 1.7 % (0.00-10.9); Hematocrit 33.2 VOL% (35.7-47.0); Immature Granulocytes Absolute 0.27 #; Lymphocytes # 1.8 10*3/uL (1.4-4.0); Mean Corpuscular HGB Conc 33.1 GM/DL (32-36); Mean Corpuscular Volume 86.7 FL (87-102); Monocytes # 0.7 10*3/uL (0.11-0.8); Monocytes % 4.8 % (1.7-12.7); Platelet Count 314 T/CUMM (130-400); Red Blood Count 3.83 MC/CUMM (3.8-5.5); White Blood Count 13.7 T/CUMM (4-12)
[2022-03-14 05:45] LABS: Calcium 7.7 MG/DL (8.5-10.1); Osmolality,Calculated 275.4 MOS/KG (273-304); Potassium 4.4 MMOL/L (3.5-5.1)
[2022-03-14] MEDS ORDERED: BUPIVACAINE MPF 0.25% 10 ML VIAL ONE (06:22)
[2022-03-14] MEDS ORDERED: LIDOCAINE 1%/EPI INJ 20 ML VIAL ONE (06:23)
[2022-03-14] MEDS ORDERED: ALBUTEROL 2.5 MG/3 ML NEB RESP TX ONE (06:52)
[2022-03-14] MEDS ORDERED: fentaNYL 100 MCG/2 ML VIAL ONE (07:06)
[2022-03-14] MEDS ORDERED: DESFLURANE 1 UNIT/15 MINUTE INH ONE (07:15)
[2022-03-14] MEDS ORDERED: propofoL 200 MG/20 ML VIAL IV ONE (07:15)
[2022-03-14] MEDS ORDERED: SUCCINYLCHOLINE 200 MG/10 ML VIAL ONE (07:15)
[2022-03-14] MEDS ORDERED: LIDOCAINE 2% 5 ML VIAL ONE (07:15)
[2022-03-14] MEDS ORDERED: ONDANSETRON 4 MG/2 ML VIAL ONE (07:15)
[2022-03-14] MEDS ORDERED: MAGNESIUM SULF RIDER 2 GM/50 ML PREMIX IV ONE (07:25)
[2022-03-14] MEDS ORDERED: ONDANSETRON 4 MG/2 ML VIAL IV PRN (07:57)
[2022-03-14] MEDS ORDERED: DEXTROSE 10% 250 ML BAG IV PRN (09:03)
[2022-03-14] MEDS: metroNIDAZOLE INJ 500 MG/100 ML PREMIX IV SCH ×3 (09:44→21:36)
[2022-03-14] MEDS: INSULIN LISPRO 100 UNIT/ML SUBCUT SCH ×4 (10:31→21:26)
[2022-03-14] MEDS: INSULIN GLARGINE 100 UNIT/ML SUBCUT SCH ×2 (10:31→21:26)
[2022-03-14] MEDS: MAGNESIUM OXIDE 400 MG TABLET PO SCH ×2 (10:32→21:25)
[2022-03-14] MEDS: guaiFENesin/DM ER 600-30 MG TABLET PO PRN (10:32)
[2022-03-14] MEDS: LEVOTHYROXINE 25 MCG TABLET PO SCH (10:33)
[2022-03-14] MEDS: PREGABALIN 75 MG CAPSULE PO SCH ×3 (10:33→21:25)
[2022-03-14] MEDS: PANTOPRAZOLE 40 MG TABLET PO SCH (10:33)
[2022-03-14] MEDS: BISACODYL 5 MG TABLET PO SCH (10:35)
[2022-03-14] MEDS: cefTRIAXone 1,000 MG in SODIUM CHLORIDE 0.9% 100 ML IV SCH (11:01)
[2022-03-14] MEDS: ACYCLOVIR 5% OINT 15 GM TUBE TOP SCH ×3 (13:44→21:45)
[2022-03-14] MEDS: SODIUM HYPOCHLORITE 0.25% IRRIG 473 ML BOTTLE TOP SCH (13:44)
[2022-03-14] MEDS: HEPARIN 5,000 UNIT/1 ML VIAL SUBCUT SCH (21:25)
[2022-03-15] MEDS: ALBUTEROL/IPRATROPIUM 3 ML NEB RESP TX SCH ×7 (00:15→23:52)
[2022-03-15] MEDS: HYDROmorphone 1 MG/1 ML SYRINGE IV PRN ×11 (02:59→23:37)
[2022-03-15 05:14] LABS: Basophils # 0.1 10*3/uL (0.0-0.2); Basophils % 0.6 % (0.0-0.8); Eosinophils # 0.4 10*3/uL (0.0-0.87); Eosinophils % 3.8 % (0.00-10.9); Hematocrit 33.5 VOL% (35.7-47.0); Hemoglobin 10.7 GM/DL (12.0-16.0); Immature Granulocytes % 3.6 %; Immature Granulocytes Absolute 0.42 #; Lymphocytes # 1.8 10*3/uL (1.4-4.0); Lymphocytes % 15.5 % (21.3-54.2); Mean Corpuscular HGB Conc 31.9 GM/DL (32-36); Mean Corpuscular Volume 88.4 FL (87-102); Mean Platelet Volume 10.3 FL (9.6-12.0); Monocytes # 0.6 10*3/uL (0.11-0.8); Monocytes % 4.9 % (1.7-12.7); Neutrophils % 71.6 % (38.7-73.9); Platelet Count 342 T/CUMM (130-400); Red Blood Count 3.79 MC/CUMM (3.8-5.5); Red Cell Distribution Width 15.3 % (9.3-17.3); White Blood Count 11.5 T/CUMM (4-12)
[2022-03-15 05:43] LABS: Albumin 1.2 G/DL (3.4-5.0); Bilirubin,Total 0.4 MG/DL (0.20-1.00); Calcium 7.7 MG/DL (8.5-10.1); Osmolality,Calculated 273.7 MOS/KG (273-304); Potassium 4.6 MMOL/L (3.5-5.1); Total Protein 5.5 G/DL (6.4-8.2)
[2022-03-15] MEDS: metroNIDAZOLE INJ 500 MG/100 ML PREMIX IV SCH ×3 (05:59→22:35)
[2022-03-15] MEDS: LEVOTHYROXINE 25 MCG TABLET PO SCH (06:00)
[2022-03-15] MEDS: ACYCLOVIR 5% OINT 15 GM TUBE TOP SCH ×5 (06:00→22:36)
[2022-03-15] MEDS: INSULIN GLARGINE 100 UNIT/ML SUBCUT SCH ×2 (08:04→21:31)
[2022-03-15] MEDS ORDERED: propofoL 200 MG/20 ML VIAL IV ONE (09:16)
[2022-03-15] MEDS ORDERED: SEVOFLURANE 1 UNIT/15 MINUTE INH ONE (09:16)
[2022-03-15] MEDS ORDERED: LIDOCAINE 2% 5 ML VIAL ONE (09:16)
[2022-03-15] MEDS ORDERED: fentaNYL 100 MCG/2 ML VIAL ONE (09:16)
[2022-03-15] MEDS ORDERED: MIDAZOLAM 2 MG/2 ML VIAL ONE (09:17)
[2022-03-15] MEDS: LACTATED RINGERS 1,000 ML IV SCH ×2 (09:20→11:07)
[2022-03-15] MEDS ORDERED: SUCCINYLCHOLINE 200 MG/10 ML VIAL ONE (09:20)
[2022-03-15] MEDS ORDERED: ONDANSETRON 4 MG/2 ML VIAL ONE (10:05)
[2022-03-15] MEDS ORDERED: ONDANSETRON 4 MG/2 ML VIAL IV PRN (10:25)
[2022-03-15] MEDS ORDERED: DEXTROSE 50% 25 GM/50 ML VIAL IV PRN (10:38)
[2022-03-15] MEDS ORDERED: GLUCAGON 1 MG VIAL IM PRN (10:38)
[2022-03-15] MEDS: cefTRIAXone 1,000 MG in SODIUM CHLORIDE 0.9% 100 ML IV SCH (11:50)
[2022-03-15] MEDS: HEPARIN 5,000 UNIT/1 ML VIAL SUBCUT SCH ×2 (11:50→21:45)
[2022-03-15] MEDS: PREGABALIN 75 MG CAPSULE PO SCH ×3 (11:50→21:30)
[2022-03-15] MEDS: PANTOPRAZOLE 40 MG TABLET PO SCH (11:51)
[2022-03-15] MEDS: MAGNESIUM OXIDE 400 MG TABLET PO SCH ×2 (11:51→21:30)
[2022-03-15] MEDS: BISACODYL 5 MG TABLET PO SCH (11:53)
[2022-03-15] MEDS: INSULIN LISPRO 100 UNIT/ML SUBCUT SCH ×4 (11:54→22:34)
[2022-03-15] MEDS: SODIUM HYPOCHLORITE 0.25% IRRIG 473 ML BOTTLE TOP SCH (14:35)
[2022-03-16] MEDS: ALBUTEROL/IPRATROPIUM 3 ML NEB RESP TX SCH ×6 (03:38→23:55)
[2022-03-16] MEDS: HYDROmorphone 1 MG/1 ML SYRINGE IV PRN ×8 (05:38→22:22)
[2022-03-16] MEDS: ACYCLOVIR 5% OINT 15 GM TUBE TOP SCH ×5 (05:39→22:31)
[2022-03-16] MEDS: LEVOTHYROXINE 25 MCG TABLET PO SCH (05:57)
[2022-03-16] MEDS: metroNIDAZOLE INJ 500 MG/100 ML PREMIX IV SCH ×3 (05:57→22:29)
[2022-03-16 07:20] LABS: Basophils # 0.1 10*3/uL (0.0-0.2); Basophils % 0.7 % (0.0-0.8); Eosinophils # 0.4 10*3/uL (0.0-0.87); Eosinophils % 5.2 % (0.00-10.9); Hematocrit 32.1 VOL% (35.7-47.0); Hemoglobin 10.4 GM/DL (12.0-16.0); Immature Granulocytes % 3.4 %; Immature Granulocytes Absolute 0.28 #; Lymphocytes # 1.5 10*3/uL (1.4-4.0); Lymphocytes % 18.3 % (21.3-54.2); Mean Corpuscular HGB Conc 32.4 GM/DL (32-36); Mean Corpuscular Volume 89.4 FL (87-102); Mean Platelet Volume 10.1 FL (9.6-12.0); Monocytes # 0.4 10*3/uL (0.11-0.8); Monocytes % 5.3 % (1.7-12.7); Neutrophils % 67.1 % (38.7-73.9); Platelet Count 368 T/CUMM (130-400); Red Blood Count 3.59 MC/CUMM (3.8-5.5); Red Cell Distribution Width 15.4 % (9.3-17.3); White Blood Count 8.1 T/CUMM (4-12)
[2022-03-16 07:51] LABS: Alanine Aminotransferase 16 U/L (13-56); Albumin 1.3 G/DL (3.4-5.0); Alkaline Phosphatase 194 U/L (45-117); Aspartate Amino Transferase 15 U/L (0-37); Bilirubin,Total < 0.39 MG/DL (0.20-1.00); Blood Urea Nitrogen 6 MG/DL (7-18); Calcium 7.8 MG/DL (8.5-10.1); Carbon Dioxide 28 MMOL/L (21-32); Chloride 103 MMOL/L (98-107); Glucose 272 MG/DL (74-106); Osmolality,Calculated 277.1 MOS/KG (273-304); Potassium 4.3 MMOL/L (3.5-5.1); Sodium 135 MMOL/L (136-145); Total Protein 5.4 G/DL (6.4-8.2)
[2022-03-16] MEDS: MAGNESIUM OXIDE 400 MG TABLET PO SCH ×3 (09:39→20:27)
[2022-03-16] MEDS: PANTOPRAZOLE 40 MG TABLET PO SCH ×2 (09:39→14:05)
[2022-03-16] MEDS: BISACODYL 5 MG TABLET PO SCH (09:39)
[2022-03-16] MEDS: INSULIN LISPRO 100 UNIT/ML SUBCUT SCH ×4 (09:39→22:21)
[2022-03-16] MEDS: PREGABALIN 75 MG CAPSULE PO SCH ×3 (09:39→20:26)
[2022-03-16] MEDS: INSULIN GLARGINE 100 UNIT/ML SUBCUT SCH ×2 (09:43→20:26)
[2022-03-16] MEDS: HEPARIN 5,000 UNIT/1 ML VIAL SUBCUT SCH ×2 (09:44→20:26)
[2022-03-16] MEDS: cefTRIAXone 1,000 MG in SODIUM CHLORIDE 0.9% 100 ML IV SCH (11:01)
[2022-03-16] MEDS: NICOTINE 21 MG/24 HR PATCH TRANSDERM PRN (11:13)
[2022-03-16] MEDS ORDERED: HYDROmorphone 1 MG/1 ML SYRINGE IV ONE (13:30)
[2022-03-16] MEDS: SILVER SULFADIAZINE 1% CREAM 25 GM TUBE TOP SCH (13:59)
[2022-03-16] MEDS: SODIUM HYPOCHLORITE 0.25% IRRIG 473 ML BOTTLE TOP SCH (13:59)
[2022-03-17] MEDS: HYDROmorphone 1 MG/1 ML SYRINGE IV PRN ×10 (02:06→22:50)
[2022-03-17] MEDS: ALBUTEROL/IPRATROPIUM 3 ML NEB RESP TX SCH ×6 (03:40→23:51)
[2022-03-17] MEDS: metroNIDAZOLE INJ 500 MG/100 ML PREMIX IV SCH ×3 (05:02→22:49)
[2022-03-17 05:11] LABS: Basophils # 0.1 10*3/uL (0.0-0.2); Basophils % 0.8 % (0.0-0.8); Eosinophils # 0.4 10*3/uL (0.0-0.87); Eosinophils % 4.1 % (0.00-10.9); Hemoglobin 10.4 GM/DL (12.0-16.0); Immature Granulocytes % 3.9 %; Immature Granulocytes Absolute 0.33 #; Lymphocytes # 1.8 10*3/uL (1.4-4.0); Lymphocytes % 21.6 % (21.3-54.2); Mean Corpuscular HGB Conc 32.5 GM/DL (32-36); Mean Corpuscular Volume 89.4 FL (87-102); Mean Platelet Volume 9.8 FL (9.6-12.0); Monocytes # 0.5 10*3/uL (0.11-0.8); Monocytes % 5.8 % (1.7-12.7); Neutrophils % 63.8 % (38.7-73.9); Platelet Count 454 T/CUMM (130-400); Red Blood Count 3.58 MC/CUMM (3.8-5.5); Red Cell Distribution Width 15.7 % (9.3-17.3); White Blood Count 8.5 T/CUMM (4-12)
[2022-03-17 05:34] LABS: Alanine Aminotransferase 14 U/L (13-56); Albumin 1.4 G/DL (3.4-5.0); Alkaline Phosphatase 177 U/L (45-117); Aspartate Amino Transferase 12 U/L (0-37); Bilirubin,Total < 0.39 MG/DL (0.20-1.00); Blood Urea Nitrogen 7 MG/DL (7-18); Calcium 7.8 MG/DL (8.5-10.1); Carbon Dioxide 27 MMOL/L (21-32); Chloride 102 MMOL/L (98-107); Glucose 201 MG/DL (74-106); Osmolality,Calculated 273.1 MOS/KG (273-304); Potassium 4.4 MMOL/L (3.5-5.1); Sodium 135 MMOL/L (136-145); Total Protein 5.8 G/DL (6.4-8.2)
[2022-03-17] MEDS: ACYCLOVIR 5% OINT 15 GM TUBE TOP SCH ×5 (06:03→22:50)
[2022-03-17] MEDS: LEVOTHYROXINE 25 MCG TABLET PO SCH (06:04)
[2022-03-17] MEDS: MAGNESIUM OXIDE 400 MG TABLET PO SCH ×2 (09:29→20:50)
[2022-03-17] MEDS: PREGABALIN 75 MG CAPSULE PO SCH ×3 (09:29→20:50)
[2022-03-17] MEDS: PANTOPRAZOLE 40 MG TABLET PO SCH (09:29)
[2022-03-17] MEDS: INSULIN GLARGINE 100 UNIT/ML SUBCUT SCH ×2 (09:30→20:51)
[2022-03-17] MEDS: HEPARIN 5,000 UNIT/1 ML VIAL SUBCUT SCH ×2 (09:30→20:51)
[2022-03-17] MEDS: INSULIN LISPRO 100 UNIT/ML SUBCUT SCH ×4 (09:30→20:50)
[2022-03-17] MEDS: BISACODYL 5 MG TABLET PO SCH (09:38)
[2022-03-17] MEDS ORDERED: HYDROmorphone 1 MG/1 ML SYRINGE IV ONE (09:57)
[2022-03-17] MEDS: SILVER SULFADIAZINE 1% CREAM 25 GM TUBE TOP SCH (10:15)
[2022-03-17] MEDS: SODIUM HYPOCHLORITE 0.25% IRRIG 473 ML BOTTLE TOP SCH (10:15)
[2022-03-17] MEDS: cefTRIAXone 1,000 MG in SODIUM CHLORIDE 0.9% 100 ML IV SCH (12:25)
[2022-03-17] MEDS: NICOTINE 21 MG/24 HR PATCH TRANSDERM PRN (12:25)
[2022-03-18] MEDS: ALBUTEROL/IPRATROPIUM 3 ML NEB RESP TX SCH ×5 (03:25→19:29)
[2022-03-18] MEDS: HYDROmorphone 1 MG/1 ML SYRINGE IV PRN ×9 (03:26→22:30)
[2022-03-18 05:37] LABS: Basophils # 0.1 10*3/uL (0.0-0.2); Basophils % 0.7 % (0.0-0.8); Eosinophils # 0.4 10*3/uL (0.0-0.87); Eosinophils % 4.3 % (0.00-10.9); Hematocrit 31.9 VOL% (35.7-47.0); Hemoglobin 10.3 GM/DL (12.0-16.0); Immature Granulocytes % 4.6 %; Immature Granulocytes Absolute 0.38 #; Lymphocytes # 1.9 10*3/uL (1.4-4.0); Lymphocytes % 23.4 % (21.3-54.2); Mean Corpuscular HGB Conc 32.3 GM/DL (32-36); Mean Corpuscular Volume 89.4 FL (87-102); Mean Platelet Volume 10.3 FL (9.6-12.0); Monocytes # 0.5 10*3/uL (0.11-0.8); Platelet Count 381 T/CUMM (130-400); Red Blood Count 3.57 MC/CUMM (3.8-5.5); Red Cell Distribution Width 15.9 % (9.3-17.3); White Blood Count 8.3 T/CUMM (4-12)
[2022-03-18] MEDS: metroNIDAZOLE INJ 500 MG/100 ML PREMIX IV SCH ×3 (05:56→22:30)
[2022-03-18] MEDS: ACYCLOVIR 5% OINT 15 GM TUBE TOP SCH ×5 (05:57→22:31)
[2022-03-18] MEDS: LEVOTHYROXINE 25 MCG TABLET PO SCH (05:57)
[2022-03-18 06:04] LABS: Alanine Aminotransferase 12 U/L (13-56); Albumin 1.5 G/DL (3.4-5.0); Alkaline Phosphatase 162 U/L (45-117); Aspartate Amino Transferase 12 U/L (0-37); Bilirubin,Total < 0.39 MG/DL (0.20-1.00); Blood Urea Nitrogen 7 MG/DL (7-18); Calcium 8.2 MG/DL (8.5-10.1); Carbon Dioxide 29 MMOL/L (21-32); Chloride 103 MMOL/L (98-107); Glucose 133 MG/DL (74-106); Osmolality,Calculated 272.8 MOS/KG (273-304); Potassium 4.3 MMOL/L (3.5-5.1); Sodium 137 MMOL/L (136-145); Total Protein 6.1 G/DL (6.4-8.2)
[2022-03-18] MEDS: INSULIN LISPRO 100 UNIT/ML SUBCUT SCH ×4 (08:28→20:35)
[2022-03-18] MEDS: INSULIN GLARGINE 100 UNIT/ML SUBCUT SCH ×2 (08:28→20:35)
[2022-03-18] MEDS: PANTOPRAZOLE 40 MG TABLET PO SCH (08:29)
[2022-03-18] MEDS: MAGNESIUM OXIDE 400 MG TABLET PO SCH ×2 (08:29→20:36)
[2022-03-18] MEDS: PREGABALIN 75 MG CAPSULE PO SCH ×3 (08:29→20:36)
[2022-03-18] MEDS: BISACODYL 5 MG TABLET PO SCH ×2 (08:29→08:37)
[2022-03-18] MEDS: SODIUM HYPOCHLORITE 0.25% IRRIG 473 ML BOTTLE TOP SCH (08:30)
[2022-03-18] MEDS: HEPARIN 5,000 UNIT/1 ML VIAL SUBCUT SCH ×2 (08:32→20:35)
[2022-03-18] MEDS: SILVER SULFADIAZINE 1% CREAM 25 GM TUBE TOP SCH (08:32)
[2022-03-18] MEDS: cefTRIAXone 1,000 MG in SODIUM CHLORIDE 0.9% 100 ML IV SCH (10:17)
[2022-03-18] MEDS ORDERED: HYDROmorphone 1 MG/1 ML SYRINGE IV PRN (12:13)
[2022-03-18] MEDS: NICOTINE 21 MG/24 HR PATCH TRANSDERM PRN (15:47)
[2022-03-19] MEDS: ALBUTEROL/IPRATROPIUM 3 ML NEB RESP TX SCH ×7 (00:03→23:50)
[2022-03-19] MEDS: HYDROmorphone 1 MG/1 ML SYRINGE IV PRN ×5 (00:39→10:08)
[2022-03-19 04:59] LABS: Basophils # 0.1 10*3/uL (0.0-0.2); Basophils % 1.3 % (0.0-0.8); Eosinophils # 0.3 10*3/uL (0.0-0.87); Eosinophils % 4.9 % (0.00-10.9); Hematocrit 36.5 VOL% (35.7-47.0); Immature Granulocytes % 4.7 %; Lymphocytes # 1.9 10*3/uL (1.4-4.0); Lymphocytes % 29.4 % (21.3-54.2); Mean Corpuscular HGB Conc 30.1 GM/DL (32-36); Mean Corpuscular Volume 96.6 FL (87-102); Mean Platelet Volume 9.9 FL (9.6-12.0); Monocytes # 0.4 10*3/uL (0.11-0.8); Monocytes % 5.7 % (1.7-12.7); Platelet Count 437 T/CUMM (130-400); Red Blood Count 3.78 MC/CUMM (3.8-5.5); Red Cell Distribution Width 16.6 % (9.3-17.3); White Blood Count 6.4 T/CUMM (4-12)
[2022-03-19 05:03] LABS: Calcium 7.7 MG/DL (8.5-10.1); Potassium 5.3 MMOL/L (3.5-5.1)
[2022-03-19] MEDS: metroNIDAZOLE INJ 500 MG/100 ML PREMIX IV SCH ×3 (05:15→22:10)
[2022-03-19] MEDS: LEVOTHYROXINE 25 MCG TABLET PO SCH ×2 (05:15→07:50)
[2022-03-19] MEDS: ACYCLOVIR 5% OINT 15 GM TUBE TOP SCH ×5 (05:16→22:05)
[2022-03-19] MEDS ORDERED: SODIUM POLYSTYRENE SULFATE 15 GM/60 ML BOTTLE PO SCH (07:30)
[2022-03-19] MEDS: INSULIN LISPRO 100 UNIT/ML SUBCUT SCH ×6 (07:50→20:34)
[2022-03-19] MEDS: PANTOPRAZOLE 40 MG TABLET PO SCH (08:35)
[2022-03-19] MEDS: MAGNESIUM OXIDE 400 MG TABLET PO SCH ×2 (08:35→20:27)
[2022-03-19] MEDS: PREGABALIN 75 MG CAPSULE PO SCH ×3 (08:35→20:27)
[2022-03-19] MEDS: INSULIN GLARGINE 100 UNIT/ML SUBCUT SCH ×2 (08:36→20:28)
[2022-03-19] MEDS: SILVER SULFADIAZINE 1% CREAM 25 GM TUBE TOP SCH (08:36)
[2022-03-19] MEDS: SODIUM HYPOCHLORITE 0.25% IRRIG 473 ML BOTTLE TOP SCH (08:37)
[2022-03-19] MEDS: BISACODYL 5 MG TABLET PO SCH (08:37)
[2022-03-19] MEDS: HEPARIN 5,000 UNIT/1 ML VIAL SUBCUT SCH ×2 (08:37→20:28)
[2022-03-19] MEDS: cefTRIAXone 1,000 MG in SODIUM CHLORIDE 0.9% 100 ML IV SCH (10:08)
[2022-03-19] MEDS ORDERED: NALOXONE 0.4 MG/ML VIAL IV PRN (10:54)
[2022-03-19] MEDS ORDERED: HYDROmorphone 1 MG/1 ML SYRINGE IV ONE (11:11)
[2022-03-19] MEDS: HYDROmorphone PCA 30 MG/30 ML SYRINGE IV SCH (12:55)
[2022-03-19] MEDS: NICOTINE 21 MG/24 HR PATCH TRANSDERM PRN (15:39)
[2022-03-20] MEDS: ALBUTEROL/IPRATROPIUM 3 ML NEB RESP TX SCH ×6 (03:30→22:56)
[2022-03-20] MEDS: LEVOTHYROXINE 25 MCG TABLET PO SCH (05:45)
[2022-03-20] MEDS: ACYCLOVIR 5% OINT 15 GM TUBE TOP SCH ×5 (05:45→21:22)
[2022-03-20 06:10] LABS: Basophils # 0.1 10*3/uL (0.0-0.2); Eosinophils # 0.4 10*3/uL (0.0-0.87); Eosinophils % 4.7 % (0.00-10.9); Hematocrit 34.9 VOL% (35.7-47.0); Hemoglobin 10.6 GM/DL (12.0-16.0); Immature Granulocytes % 3.2 %; Immature Granulocytes Absolute 0.25 #; Lymphocytes # 2.6 10*3/uL (1.4-4.0); Lymphocytes % 33.5 % (21.3-54.2); Mean Corpuscular HGB Conc 30.4 GM/DL (32-36); Mean Corpuscular Volume 94.3 FL (87-102); Mean Platelet Volume 10.2 FL (9.6-12.0); Monocytes # 0.6 10*3/uL (0.11-0.8); Monocytes % 7.3 % (1.7-12.7); Neutrophils % 50.3 % (38.7-73.9); Platelet Count 243 T/CUMM (130-400); Red Cell Distribution Width 16.5 % (9.3-17.3); White Blood Count 7.9 T/CUMM (4-12)
[2022-03-20 06:16] LABS: Platelet Estimate Normal
[2022-03-20 06:17] LABS: Anisocytosis Slight
[2022-03-20 06:18] LABS: Macrocytosis Slight
[2022-03-20 06:55] LABS: Calcium 7.6 MG/DL (8.5-10.1); Osmolality,Calculated 274.5 MOS/KG (273-304); Potassium 5.2 MMOL/L (3.5-5.1)
[2022-03-20] MEDS: INSULIN LISPRO 100 UNIT/ML SUBCUT SCH ×4 (07:41→20:22)
[2022-03-20] MEDS: INSULIN GLARGINE 100 UNIT/ML SUBCUT SCH ×2 (08:07→21:22)
[2022-03-20] MEDS: PREGABALIN 75 MG CAPSULE PO SCH ×3 (08:07→21:21)
[2022-03-20] MEDS: MAGNESIUM OXIDE 400 MG TABLET PO SCH ×2 (08:07→21:21)
[2022-03-20] MEDS: PANTOPRAZOLE 40 MG TABLET PO SCH (08:07)
[2022-03-20] MEDS: HEPARIN 5,000 UNIT/1 ML VIAL SUBCUT SCH ×2 (08:08→21:23)
[2022-03-20] MEDS: SILVER SULFADIAZINE 1% CREAM 25 GM TUBE TOP SCH (08:08)
[2022-03-20] MEDS: BISACODYL 5 MG TABLET PO SCH (08:08)
[2022-03-20] MEDS: SODIUM HYPOCHLORITE 0.25% IRRIG 473 ML BOTTLE TOP SCH (08:08)
[2022-03-20] MEDS: SODIUM CHLORIDE 0.9% 1,000 ML IV SCH ×2 (10:55→21:22)
[2022-03-20] MEDS: HYDROmorphone PCA 30 MG/30 ML SYRINGE IV SCH ×2 (10:56→16:51)
[2022-03-20] MEDS: NICOTINE 21 MG/24 HR PATCH TRANSDERM PRN (17:34)
[2022-03-21] MEDS: ALBUTEROL/IPRATROPIUM 3 ML NEB RESP TX SCH ×6 (03:57→23:47)
[2022-03-21 05:16] LABS: Basophils # 0.1 10*3/uL (0.0-0.2); Basophils % 1.2 % (0.0-0.8); Eosinophils # 0.3 10*3/uL (0.0-0.87); Eosinophils % 4.5 % (0.00-10.9); Hematocrit 35.1 VOL% (35.7-47.0); Hemoglobin 10.8 GM/DL (12.0-16.0); Immature Granulocytes % 3.7 %; Immature Granulocytes Absolute 0.24 #; Lymphocytes # 1.9 10*3/uL (1.4-4.0); Lymphocytes % 28.5 % (21.3-54.2); Mean Corpuscular HGB Conc 30.8 GM/DL (32-36); Mean Corpuscular Volume 92.6 FL (87-102); Mean Platelet Volume 9.9 FL (9.6-12.0); Monocytes # 0.5 10*3/uL (0.11-0.8); Monocytes % 7.4 % (1.7-12.7); Neutrophils % 54.7 % (38.7-73.9); Platelet Count 412 T/CUMM (130-400); Red Blood Count 3.79 MC/CUMM (3.8-5.5); Red Cell Distribution Width 16.3 % (9.3-17.3); White Blood Count 6.5 T/CUMM (4-12)
[2022-03-21 05:22] LABS: Calcium 8.1 MG/DL (8.5-10.1); Osmolality,Calculated 279.5 MOS/KG (273-304); Potassium 4.6 MMOL/L (3.5-5.1)
[2022-03-21] MEDS: ACYCLOVIR 5% OINT 15 GM TUBE TOP SCH ×2 (05:30→10:06)
[2022-03-21] MEDS: LEVOTHYROXINE 25 MCG TABLET PO SCH (05:30)
[2022-03-21] MEDS: SODIUM CHLORIDE 0.9% 1,000 ML IV SCH (06:18)
[2022-03-21] MEDS: INSULIN LISPRO 100 UNIT/ML SUBCUT SCH ×4 (07:57→20:21)
[2022-03-21] MEDS: MAGNESIUM OXIDE 400 MG TABLET PO SCH ×2 (08:00→20:20)
[2022-03-21] MEDS: PANTOPRAZOLE 40 MG TABLET PO SCH (08:00)
[2022-03-21] MEDS: INSULIN GLARGINE 100 UNIT/ML SUBCUT SCH ×2 (08:00→20:21)
[2022-03-21] MEDS: HEPARIN 5,000 UNIT/1 ML VIAL SUBCUT SCH ×2 (08:00→20:22)
[2022-03-21] MEDS: PREGABALIN 75 MG CAPSULE PO SCH ×3 (08:01→20:20)
[2022-03-21] MEDS: SODIUM HYPOCHLORITE 0.25% IRRIG 473 ML BOTTLE TOP SCH (08:01)
[2022-03-21] MEDS: SILVER SULFADIAZINE 1% CREAM 25 GM TUBE TOP SCH (08:01)
[2022-03-21] MEDS: BISACODYL 5 MG TABLET PO SCH (08:17)
[2022-03-21] MEDS ORDERED: HYDROmorphone 1 MG/1 ML SYRINGE IV ONE (10:26)
[2022-03-21] MEDS: HYDROmorphone PCA 30 MG/30 ML SYRINGE IV SCH ×2 (10:55→22:43)
[2022-03-21] MEDS: NICOTINE 21 MG/24 HR PATCH TRANSDERM PRN (17:16)
[2022-03-22] MEDS: ALBUTEROL/IPRATROPIUM 3 ML NEB RESP TX SCH ×6 (04:10→23:02)
[2022-03-22 05:29] LABS: Basophils # 0.1 10*3/uL (0.0-0.2); Eosinophils # 0.3 10*3/uL (0.0-0.87); Eosinophils % 3.7 % (0.00-10.9); Hematocrit 34.6 VOL% (35.7-47.0); Hemoglobin 10.5 GM/DL (12.0-16.0); Immature Granulocytes % 3.3 %; Immature Granulocytes Absolute 0.22 #; Lymphocytes # 2.6 10*3/uL (1.4-4.0); Lymphocytes % 39.2 % (21.3-54.2); Mean Corpuscular HGB Conc 30.3 GM/DL (32-36); Mean Corpuscular Volume 94.5 FL (87-102); Mean Platelet Volume 9.4 FL (9.6-12.0); Monocytes # 0.5 10*3/uL (0.11-0.8); Monocytes % 7.7 % (1.7-12.7); Neutrophils % 45.1 % (38.7-73.9); Platelet Count 436 T/CUMM (130-400); Red Blood Count 3.66 MC/CUMM (3.8-5.5); Red Cell Distribution Width 16.5 % (9.3-17.3); White Blood Count 6.7 T/CUMM (4-12)
[2022-03-22] MEDS: LEVOTHYROXINE 25 MCG TABLET PO SCH (05:32)
[2022-03-22 05:44] LABS: Calcium 8.1 MG/DL (8.5-10.1); Osmolality,Calculated 277.8 MOS/KG (273-304); Potassium 4.5 MMOL/L (3.5-5.1)
[2022-03-22 06:39] LABS: Anisocytosis 1+; Band Neutrophils 2 % (0-10); Eosinophils 3 % (0-10); Lymphocytes 38 % (20-55); Macrocytosis Slight; Platelet Estimate Normal; Total Cells Counted 100
[2022-03-22 06:40] LABS: Atypical Lymphocytes Few
[2022-03-22] MEDS: INSULIN LISPRO 100 UNIT/ML SUBCUT SCH ×4 (08:12→20:36)
[2022-03-22] MEDS: INSULIN GLARGINE 100 UNIT/ML SUBCUT SCH ×2 (08:13→20:17)
[2022-03-22] MEDS: PREGABALIN 75 MG CAPSULE PO SCH ×3 (08:13→20:16)
[2022-03-22] MEDS: MAGNESIUM OXIDE 400 MG TABLET PO SCH ×2 (08:13→20:16)
[2022-03-22] MEDS: PANTOPRAZOLE 40 MG TABLET PO SCH (08:13)
[2022-03-22] MEDS: SILVER SULFADIAZINE 1% CREAM 25 GM TUBE TOP SCH (08:13)
[2022-03-22] MEDS: SODIUM HYPOCHLORITE 0.25% IRRIG 473 ML BOTTLE TOP SCH (08:13)
[2022-03-22] MEDS: BISACODYL 5 MG TABLET PO SCH (08:14)
[2022-03-22] MEDS: HEPARIN 5,000 UNIT/1 ML VIAL SUBCUT SCH ×2 (08:14→20:16)
[2022-03-22] MEDS: HYDROmorphone PCA 30 MG/30 ML SYRINGE IV SCH (11:03)
[2022-03-22] MEDS: NICOTINE 21 MG/24 HR PATCH TRANSDERM PRN (14:19)
[2022-03-23] MEDS: ALBUTEROL/IPRATROPIUM 3 ML NEB RESP TX SCH ×6 (03:03→23:48)
[2022-03-23 05:37] LABS: Basophils # 0.1 10*3/uL (0.0-0.2); Basophils % 1.1 % (0.0-0.8); Eosinophils # 0.3 10*3/uL (0.0-0.87); Eosinophils % 3.3 % (0.00-10.9); Hemoglobin 10.5 GM/DL (12.0-16.0); Immature Granulocytes Absolute 0.15 #; Lymphocytes # 2.8 10*3/uL (1.4-4.0); Lymphocytes % 36.5 % (21.3-54.2); Mean Corpuscular HGB Conc 30.9 GM/DL (32-36); Mean Corpuscular Volume 93.4 FL (87-102); Mean Platelet Volume 10.2 FL (9.6-12.0); Monocytes # 0.6 10*3/uL (0.11-0.8); Monocytes % 7.5 % (1.7-12.7); Neutrophils % 49.6 % (38.7-73.9); Platelet Count 222 T/CUMM (130-400); Red Blood Count 3.64 MC/CUMM (3.8-5.5); Red Cell Distribution Width 16.1 % (9.3-17.3); White Blood Count 7.6 T/CUMM (4-12)
[2022-03-23] MEDS: LEVOTHYROXINE 25 MCG TABLET PO SCH (05:44)
[2022-03-23 06:06] LABS: Calcium 8.2 MG/DL (8.5-10.1); Osmolality,Calculated 274.8 MOS/KG (273-304); Potassium 4.4 MMOL/L (3.5-5.1)
[2022-03-23] MEDS: INSULIN LISPRO 100 UNIT/ML SUBCUT SCH ×4 (07:45→21:11)
[2022-03-23] MEDS: SODIUM HYPOCHLORITE 0.25% IRRIG 473 ML BOTTLE TOP SCH (09:46)
[2022-03-23] MEDS: BISACODYL 5 MG TABLET PO SCH (09:46)
[2022-03-23] MEDS: SILVER SULFADIAZINE 1% CREAM 25 GM TUBE TOP SCH (09:47)
[2022-03-23] MEDS: MAGNESIUM OXIDE 400 MG TABLET PO SCH ×2 (09:47→21:11)
[2022-03-23] MEDS: PANTOPRAZOLE 40 MG TABLET PO SCH (09:47)
[2022-03-23] MEDS: INSULIN GLARGINE 100 UNIT/ML SUBCUT SCH ×2 (09:47→21:12)
[2022-03-23] MEDS: PREGABALIN 75 MG CAPSULE PO SCH ×3 (09:47→21:11)
[2022-03-23] MEDS: HEPARIN 5,000 UNIT/1 ML VIAL SUBCUT SCH ×2 (09:47→21:11)
[2022-03-23] MEDS: HYDROmorphone 1 MG/1 ML SYRINGE IV PRN ×3 (11:57→21:04)
[2022-03-24] MEDS: HYDROmorphone 1 MG/1 ML SYRINGE IV PRN ×5 (03:25→21:15)
[2022-03-24] MEDS: ALBUTEROL/IPRATROPIUM 3 ML NEB RESP TX SCH ×6 (03:28→23:46)
[2022-03-24 04:16] LABS: Basophils # 0.1 10*3/uL (0.0-0.2); Basophils % 1.6 % (0.0-0.8); Eosinophils # 0.3 10*3/uL (0.0-0.87); Eosinophils % 4.6 % (0.00-10.9); Hematocrit 35.6 VOL% (35.7-47.0); Hemoglobin 11.1 GM/DL (12.0-16.0); Immature Granulocytes % 2.4 %; Immature Granulocytes Absolute 0.15 #; Lymphocytes # 1.9 10*3/uL (1.4-4.0); Lymphocytes % 30.4 % (21.3-54.2); Mean Corpuscular HGB Conc 31.2 GM/DL (32-36); Mean Corpuscular Volume 92.7 FL (87-102); Mean Platelet Volume 9.1 FL (9.6-12.0); Monocytes # 0.5 10*3/uL (0.11-0.8); Monocytes % 7.5 % (1.7-12.7); Neutrophils % 53.5 % (38.7-73.9); Platelet Count 422 T/CUMM (130-400); Red Blood Count 3.84 MC/CUMM (3.8-5.5); Red Cell Distribution Width 16.4 % (9.3-17.3); White Blood Count 6.3 T/CUMM (4-12)
[2022-03-24 04:39] LABS: Calcium 8.8 MG/DL (8.5-10.1); Osmolality,Calculated 278.8 MOS/KG (273-304); Potassium 4.6 MMOL/L (3.5-5.1)
[2022-03-24] MEDS: LEVOTHYROXINE 25 MCG TABLET PO SCH (06:11)
[2022-03-24] MEDS: HEPARIN 5,000 UNIT/1 ML VIAL SUBCUT SCH ×2 (08:59→22:19)
[2022-03-24] MEDS: PANTOPRAZOLE 40 MG TABLET PO SCH (08:59)
[2022-03-24] MEDS: MAGNESIUM OXIDE 400 MG TABLET PO SCH ×2 (09:00→22:20)
[2022-03-24] MEDS: PREGABALIN 75 MG CAPSULE PO SCH ×3 (09:00→22:19)
[2022-03-24] MEDS: INSULIN GLARGINE 100 UNIT/ML SUBCUT SCH ×2 (09:00→22:19)
[2022-03-24] MEDS: INSULIN LISPRO 100 UNIT/ML SUBCUT SCH ×4 (09:01→22:19)
[2022-03-24] MEDS: BISACODYL 5 MG TABLET PO SCH (11:32)
[2022-03-24] MEDS: NICOTINE 21 MG/24 HR PATCH TRANSDERM PRN (11:49)
[2022-03-24] MEDS: SILVER SULFADIAZINE 1% CREAM 25 GM TUBE TOP SCH (11:54)
[2022-03-24] MEDS: SODIUM HYPOCHLORITE 0.25% IRRIG 473 ML BOTTLE TOP SCH (13:38)
[2022-03-25] MEDS: ALBUTEROL/IPRATROPIUM 3 ML NEB RESP TX SCH ×4 (02:55→15:00)
[2022-03-25] MEDS: HYDROmorphone 1 MG/1 ML SYRINGE IV PRN ×4 (04:30→14:37)
[2022-03-25] MEDS: LEVOTHYROXINE 25 MCG TABLET PO SCH (06:08)
[2022-03-25] MEDS: HEPARIN 5,000 UNIT/1 ML VIAL SUBCUT SCH (08:58)
[2022-03-25] MEDS: INSULIN LISPRO 100 UNIT/ML SUBCUT SCH ×2 (09:00→14:37)
[2022-03-25] MEDS: MAGNESIUM OXIDE 400 MG TABLET PO SCH (09:00)
[2022-03-25] MEDS: INSULIN GLARGINE 100 UNIT/ML SUBCUT SCH (09:00)
[2022-03-25] MEDS: PREGABALIN 75 MG CAPSULE PO SCH (09:00)
[2022-03-25] MEDS: PANTOPRAZOLE 40 MG TABLET PO SCH (09:01)
[2022-03-25] MEDS: SILVER SULFADIAZINE 1% CREAM 25 GM TUBE TOP SCH (09:02)
[2022-03-25] MEDS: SODIUM HYPOCHLORITE 0.25% IRRIG 473 ML BOTTLE TOP SCH (09:02)
[2022-03-25] MEDS: BISACODYL 5 MG TABLET PO SCH (09:02)
[2022-03-25 16:24] VITALS: BP 117/71
== END 2022-03-25 18:32 | disposition home or self-care (01) | DRG 197 ==
LOC: N.ED 19:23 → N.EDINP 22:31 → SUATTDRO 22:31 → N.TELES 03-11 01:15
PROVIDERS: ADMIT Internal Medicine; ATTEND Internal Medicine Geriatric Medicine

== ENCOUNTER 2022-04-20 02:03 | Inpatient (IN) ==
[2022-04-20] MEDS ORDERED: VANCOMYCIN INJ 1,000 MG in SODIUM CHLORIDE 0.9% 250 ML IV STA (02:31)
[2022-04-20] MEDS ORDERED: CLINDAMYCIN INJ 600 MG/50 ML PREMIX IV STA (02:31)
[2022-04-20] MEDS ORDERED: ONDANSETRON 4 MG/2 ML VIAL IV STA (02:32)
[2022-04-20] MEDS ORDERED: HYDROmorphone 1 MG/1 ML SYRINGE IV ONE (02:32)
[2022-04-20] MEDS ORDERED: SODIUM CHLORIDE 0.9% 500 ML IV STA (02:33)
[2022-04-20 02:38] LABS: Basophils % 0.3 % (0.0-0.8); Eosinophils # 0.4 10*3/uL (0.0-0.87); Eosinophils % 3.5 % (0.00-10.9); Hematocrit 41.2 VOL% (35.7-47.0); Hemoglobin 13.3 GM/DL (12.0-16.0); Immature Granulocytes % 0.5 %; Immature Granulocytes Absolute 0.06 #; Lymphocytes % 17.6 % (21.3-54.2); Mean Corpuscular HGB Conc 32.3 GM/DL (32-36); Mean Corpuscular Volume 91.4 FL (87-102); Mean Platelet Volume 10.2 FL (9.6-12.0); Monocytes # 0.6 10*3/uL (0.11-0.8); Monocytes % 4.8 % (1.7-12.7); Neutrophils % 73.3 % (38.7-73.9); Platelet Count 223 T/CUMM (130-400); Red Blood Count 4.51 MC/CUMM (3.8-5.5); Red Cell Distribution Width 15.2 % (9.3-17.3); White Blood Count 11.5 T/CUMM (4-12)
[2022-04-20 02:54] LABS: Alanine Aminotransferase 13 U/L (13-56); Albumin 2.4 G/DL (3.4-5.0); Alkaline Phosphatase 89 U/L (45-117); Aspartate Amino Transferase 13 U/L (0-37); Bilirubin,Total < 0.39 MG/DL (0.20-1.00); Blood Urea Nitrogen 23 MG/DL (7-18); Calcium 8.9 MG/DL (8.5-10.1); Carbon Dioxide 24 MMOL/L (21-32); Chloride 102 MMOL/L (98-107); Glucose 219 MG/DL (74-106); Osmolality,Calculated 278.2 MOS/KG (273-304); Potassium 4.4 MMOL/L (3.5-5.1); Sodium 134 MMOL/L (136-145); Total Protein 7.2 G/DL (6.4-8.2)
[2022-04-20] MEDS ORDERED: ONDANSETRON 4 MG/2 ML VIAL IV PRN ×2 (04:02→13:35)
[2022-04-20] MEDS ORDERED: ACETAMINOPHEN 325 MG TABLET PO PRN (04:02)
[2022-04-20] MEDS ORDERED: GLUCAGON 1 MG VIAL IM PRN ×2 (04:02→14:36)
[2022-04-20] MEDS ORDERED: DEXTROSE 10% 250 ML BAG IV PRN (04:02)
[2022-04-20] MEDS ORDERED: ALBUTEROL/IPRATROPIUM 3 ML NEB RESP TX PRN (04:29)
[2022-04-20] MEDS ORDERED: cefTRIAXone 500 MG VIAL ONE (04:58)
[2022-04-20] MEDS ORDERED: cefTRIAXone 2,000 MG in SODIUM CHLORIDE 0.9% 100 ML IV SCH (05:00)
[2022-04-20] MEDS: HYDROmorphone 1 MG/1 ML SYRINGE IV PRN ×5 (05:15→21:31)
[2022-04-20] MEDS: SODIUM CHLORIDE 0.9% 1,000 ML IV SCH (06:33)
[2022-04-20] MEDS: INSULIN LISPRO 100 UNIT/ML SUBCUT SCH ×4 (08:02→20:31)
[2022-04-20] MEDS: MEROPENEM 500 MG in SODIUM CHLORIDE 0.9% 100 ML IV SCH ×3 (08:03→20:31)
[2022-04-20] MEDS ORDERED: VANCOMYCIN INJ 2,000 MG in SODIUM CHLORIDE 0.9% 500 ML IV SCH (09:00)
[2022-04-20] MEDS: PANTOPRAZOLE 40 MG TABLET PO SCH (09:06)
[2022-04-20] MEDS ORDERED: fentaNYL 100 MCG/2 ML VIAL ONE (12:04)
[2022-04-20] MEDS ORDERED: SEVOFLURANE 1 UNIT/15 MINUTE INH ONE (12:04)
[2022-04-20] MEDS ORDERED: SUCCINYLCHOLINE 200 MG/10 ML VIAL ONE (12:04)
[2022-04-20] MEDS ORDERED: ONDANSETRON 4 MG/2 ML VIAL ONE (12:04)
[2022-04-20] MEDS ORDERED: propofoL 200 MG/20 ML VIAL IV ONE (12:04)
[2022-04-20] MEDS ORDERED: MIDAZOLAM 2 MG/2 ML VIAL ONE (12:04)
[2022-04-20] MEDS ORDERED: ROCURONIUM 50 MG/5 ML VIAL IV ONE (12:04)
[2022-04-20] MEDS ORDERED: LIDOCAINE 2% 5 ML VIAL ONE (12:04)
[2022-04-20] MEDS ORDERED: HYDROmorphone 1 MG/1 ML SYRINGE IV PRN (13:35)
[2022-04-20] MEDS ORDERED: DEXTROSE 50% 25 GM/50 ML VIAL IV PRN (14:36)
[2022-04-20] MEDS ORDERED: ENOXAPARIN 40 MG/0.4 ML SYRINGE SUBCUT SCH (21:00)
[2022-04-21] MEDS: HYDROmorphone 1 MG/1 ML SYRINGE IV PRN ×5 (00:42→20:55)
[2022-04-21] MEDS: MEROPENEM 500 MG in SODIUM CHLORIDE 0.9% 100 ML IV SCH ×4 (01:12→20:56)
[2022-04-21] MEDS: SODIUM CHLORIDE 0.9% 1,000 ML IV SCH ×3 (04:09→15:18)
[2022-04-21 05:46] LABS: Basophils % 0.7 % (0.0-0.8); Eosinophils # 0.6 10*3/uL (0.0-0.87); Eosinophils % 10.6 % (0.00-10.9); Hematocrit 35.7 VOL% (35.7-47.0); Hemoglobin 11.1 GM/DL (12.0-16.0); Immature Granulocytes % 0.7 %; Immature Granulocytes Absolute 0.04 #; Lymphocytes # 2.2 10*3/uL (1.4-4.0); Lymphocytes % 36.6 % (21.3-54.2); Mean Corpuscular HGB Conc 31.1 GM/DL (32-36); Mean Corpuscular Volume 94.9 FL (87-102); Mean Platelet Volume 10.6 FL (9.6-12.0); Monocytes # 0.4 10*3/uL (0.11-0.8); Monocytes % 6.4 % (1.7-12.7); Platelet Count 165 T/CUMM (130-400); Red Blood Count 3.76 MC/CUMM (3.8-5.5); Red Cell Distribution Width 15.2 % (9.3-17.3)
[2022-04-21 05:58] LABS: Calcium 8.5 MG/DL (8.5-10.1); Osmolality,Calculated 285.4 MOS/KG (273-304); Potassium 4.8 MMOL/L (3.5-5.1)
[2022-04-21] MEDS: INSULIN LISPRO 100 UNIT/ML SUBCUT SCH ×4 (09:51→21:06)
[2022-04-21] MEDS: PANTOPRAZOLE 40 MG TABLET PO SCH (09:52)
[2022-04-21] MEDS ORDERED: ZINC OXIDE PASTE 113 GM TUBE TOP PRN (12:16)
[2022-04-21] MEDS: NICOTINE 21 MG/24 HR PATCH TRANSDERM SCH (15:20)
[2022-04-21] MEDS: PREGABALIN 75 MG CAPSULE PO SCH (20:55)
[2022-04-21] MEDS ORDERED: INSULIN GLARGINE 100 UNIT/ML SUBCUT SCH (21:00)
[2022-04-22] MEDS: HYDROmorphone 1 MG/1 ML SYRINGE IV PRN ×2 (00:32→05:13)
[2022-04-22] MEDS: SODIUM CHLORIDE 0.9% 1,000 ML IV SCH ×2 (01:30→14:52)
[2022-04-22] MEDS: MEROPENEM 500 MG in SODIUM CHLORIDE 0.9% 100 ML IV SCH ×2 (03:00→10:45)
[2022-04-22] MEDS: PREGABALIN 75 MG CAPSULE PO SCH (10:44)
[2022-04-22] MEDS: INSULIN LISPRO 100 UNIT/ML SUBCUT SCH ×2 (10:44→14:52)
[2022-04-22] MEDS: PANTOPRAZOLE 40 MG TABLET PO SCH (10:44)
[2022-04-22] MEDS: NICOTINE 21 MG/24 HR PATCH TRANSDERM SCH (10:45)
[2022-04-22 12:36] VITALS: BP 127/73
== END 2022-04-22 14:51 | disposition home or self-care (01) | DRG 385 ==
LOC: EDUNIT# → N.ED 02:03 → N.EDINP 04:02 → N.5E 12:40
PROVIDERS: ADMIT Internal Medicine; ATTEND Internal Medicine